=== PATIENT | male | born 1980 | race Caucasian/White ===

== ENCOUNTER 2021-10-29 18:57 | Emergency (ER) | payer MEDICARE, SELFPAY ==
[2021-10-29 19:01] VITALS: BP 113/71; PULSE 85; RESP 18; TEMP 37.1; O2SAT 100
--- NOTE | 2021-10-29 19:15 | DI.RAD_ITS ---
Exam(s) XR SHOULDER LT COMPLETE 2+V EXAM: XR SHOULDER LT COMPLETE 2+V CLINICAL HISTORY: lateral pain. TECHNIQUE: 2D digital imaging was performed. Five views. COMPARISON: No exams were available for comparison FINDINGS: BONES: No acute fracture is present. No bony destructive lesion is seen. JOINTS: No dislocation present. Minimal degenerative changes glenohumeral joint. SOFT TISSUE: Normal. IMPRESSION: No acute abnormality. DATA REPOSITORY: RADIATION DOSE DELIVERED:
--- OUTSIDE RECORDS SUMMARY | 2021-10-29 19:15 | XMS_ITS | CCD ---
:1980 Author Care Team Providers Name Role Phone KIKI Attending Physician Unavailable KIKI Er Physician 1 Unavailable Vital Signs Unknown or Not Available. Allergies Allergy Code Allergy Type Reaction Status PENICILLINS (CLASS) 01241 Drug allergy Active SULFA (sulfonamide) 0 Drug allergy Active AMOXICILLIN 723 Drug allergy Active Procedures Unknown or Not Available. History of Immunizations Unknown or Not Available. Problems Problem Code Start Date Resolved Date Status Renal stone 50222694 03/28/2019 Active Right upper quadrant pain 694304135 01/01/2016 Ac tive Disorder of gallbladder 22331458 01/01/2016 Acti ve Bipolar disorder 45920735 Active Hypothyroidism 56434640 Active Depression 80516347 Active Results Unknown or Not Available. Active Medications Medication Code Dose Units Frequency Route Modification Start Date/Time Benztropine 783894 1 MILLIGRAMS TWICE A DAY ORAL 03/29 Mesylate 1MG 13:00 Oral Tablet Prescription Detail TAKE 1 MILLIGRAMS ORAL TWICE A DAY Gabapentin 086214 600 MILLIGRAMS TWICE A ORAL 03/29/2019 300MG Oral DAY 13:00 Capsule Prescription Detail TAKE 600 MILLIGRAMS ORAL TWI CE A DAY Medications Administered During Visit Unknown or Not Available. Encounters Encounter Diagnosis Diagnosis Code Start Date Hyperventilation R064 01/31/2019 Social History Smoking Status Code Start Date End Date Never smoker 241683226 Patient Decision Aids Unknown or Not Available. Discharge Instructions You were admitted to [facility] on 01/31/2019 08:28 with a principal diagnosis of Hyperventilation You were discharged from [facility] on 01/31/2019 10:26 Should you have any questions prior to d ischarge, please contact a member of your healthcare team. If you have left the spital and have any questions, please contact your primary care physician. Chief Complaint and Reason For Visit Chief Complaint Date of Onset Panic attack 01/31/2019 Function Status Unknown or Not Available. Plan of Care Unknown or Not Available. Referral/Transition of Care Unknown or Not Available.
--- OUTSIDE RECORDS SUMMARY | 2021-10-29 19:16 | XMS_ITS | CCD ---
:1980 Author Care Team Providers Name Role Phone KIKI Attending Physician Unavailable KIKI Er Physician 1 Unavailable Vital Signs Unknown or Not Available. Allergies Allergy Code Allergy Type Reaction Status PENICILLINS (CLASS) 22202 Drug allergy Active SULFA (sulfonamide) 0 Drug allergy Active AMOXICILLIN 723 Drug allergy Active Procedures Unknown or Not Available. History of Immunizations Unknown or Not Available. Problems Problem Code Start Date Resolved Date Status Renal stone 99435718 03/28/2019 Active Right upper quadrant pain 908883780 01/01/2016 Ac tive Disorder of gallbladder 75969642 01/01/2016 Acti ve Bipolar disorder 32447090 Active Hypothyroidism 58924909 Active Depression 71209012 Active Results Active Medications Medication Code Dose Units Frequency Route Modification Start Date/Time Benztropine 968916 1 MILLIGRAMS TWICE A DAY ORAL 03/29 Mesylate 1MG 13:00 Oral Tablet Prescription Detail TAKE 1 MILLIGRAMS ORAL TWICE A DAY Gabapentin 729514 600 MILLIGRAMS TWICE A ORAL 03/29/2019 300MG Oral DAY 13:00 Capsule Prescription Detail TAKE 600 MILLIGRAMS ORAL TWI CE A DAY Medications Administered During Visit Unknown or Not Available. Encounters Encounter Diagnosis Diagnosis Code Start Date Other chronic postprocedural pain G8928 2018 Social History Smoking Status Code Start Date End Date Never smoker 597549717 Patient Decision Aids Unknown or Not Available. Discharge Instructions You were admitted to [facility] on 04/19/2019 14:52 with a principal diagnosis of Other chronic pos tprocedural pain You were discharged from [facility] on 04/19/2019 21:52 Should you have any questions prior to d ischarge, please contact a member of your healthcare team. If you have left the spital and have any questions, please contact your primary care physician. Chief Complaint and Reason For Visit Chief Complaint Date of Onset Abdominal pain 04/19/2019 Function Status Unknown or Not Available. Plan of Care Unknown or Not Available. Referral/Transition of Care Unknown or Not Available.
--- OUTSIDE RECORDS SUMMARY | 2021-10-29 19:16 | XMS_ITS | CCD ---
:1980 Author Care Team Providers Name Role Phone Mercedes RODRÍGUEZ Attending Physician Unavailable Skylar GIBBONS Er Physician 1 Unavailable Vital Signs Unknown or Not Available. Allergies Allergy Code Allergy Type Reaction Status PENICILLINS (CLASS) 14052 Drug allergy Active SULFA (sulfonamide) 0 Drug allergy Active AMOXICILLIN 723 Drug allergy Active Procedures Unknown or Not Available. History of Immunizations Unknown or Not Available. Problems Problem Code Start Date Resolved Date Status Renal stone 15243739 03/28/2019 Active Right upper quadrant pain 135000394 01/01/2016 Ac tive Disorder of gallbladder 17495084 01/01/2016 Acti ve Bipolar disorder 98715349 Active Hypothyroidism 39390543 Active Depression 80619310 Active Results Active Medications Medication Code Dose Units Frequency Route Modification Start Date/Time Benztropine 592761 1 MILLIGRAMS TWICE A DAY ORAL 03/29 Mesylate 1MG 13:00 Oral Tablet Prescription Detail TAKE 1 MILLIGRAMS ORAL TWICE A DAY Gabapentin 226776 600 MILLIGRAMS TWICE A ORAL 03/29/2019 300MG Oral DAY 13:00 Capsule Prescription Detail TAKE 600 MILLIGRAMS ORAL TWI CE A DAY Medications Administered During Visit Unknown or Not Available. Encounters Encounter Diagnosis Diagnosis Code Start Date Migraine without aura, not intractable, without B74060 09/26/2019 status migrainosus Social History Smoking Status Code Start Date End Date Never smoker 223315973 Patient Decision Aids Unknown or Not Available. Discharge Instructions [facility] 18:14 with a principal diagnosis of Migraine without aura, not intractable, without status migrainosus You were discharged from [facility] on 09/26/2019 21:15 Should you have any questions prior to d ischarge, please contact a member of your healthcare team. If you have left the ho spital and have any questions, please contact your primary care physician. Chief Complaint and Reason For Visit Chief Complaint Date of Onset HEADACHE 09/26/2019 Function Status Unknown or Not Available. Plan of Care Unknown or Not Available. Referral/Transition of Care Unknown or Not Available.
--- OUTSIDE RECORDS SUMMARY | 2021-10-29 19:16 | XMS_ITS | CCD ---
:1980 Author Care Team Providers Name Role Phone Steven KENDRICK Attending Physician Unavailable [facility] Er Physician 1 Unavailable Vital Signs Vital Sign Value Unit Date/Time Recent/Initial? BMI (Body Mass 26.29 kg/m^2 03/28/2019 10:48 Initial V S Index) Weight Measured 183.2 lbs 03/28/2019 10:48 Initial VS Height 70 in 03/28/2019 10:48 Initial VS BSA (Body Surface 2.03 m^2 03/28/2019 10:48 Initia l VS Area) BP Systolic 134 mmHg 03/28/2019 10:48 Initial VS BP Diastolic 88 mmHg 03/28/2019 10:48 Initial VS Respiratory Rate 18 bpm 03/28/2019 10:48 Initial VS Heart Rate 91 bpm 03/28/2019 10:48 Initial VS O2 % BldC Oximetry 97 % 03/28/2019 10:48 Initi al VS Body Temperature 98.2 degrees 03/28/2019 10:48 Initial VS BMI (Body Mass 26.73 kg/m^2 03/29/2019 04:00 Most Rece nt VS Index) Weight Measured 186.29 lbs 03/29/2019 04:00 Most Rec ent VS Height 70 in 03/29/2019 04:00 Most Recent VS BSA (Body Surface 2.04 m^2 03/29/2019 04:00 Most R ecent VS Area) BP Systolic 124 mmHg 03/29/2019 15:38 Most Recent VS BP Diastolic 66 mmHg 03/29/2019 15:38 Most Recent VS Respiratory Rate 18 bpm 03/29/2019 15:38 Most Re cent VS Heart Rate 77 bpm 03/29/2019 15:38 Most Recent VS O2 % BldC Oximetry 92 % 03/29/2019 15:38 Most Recent VS Body Temperature 99 degrees 03/29/2019 15:38 Most Re cent VS Allergies Allergy Code Allergy Type Reaction Status PENICILLINS (CLASS) 67380 Drug allergy Active SULFA (sulfonamide) 0 Drug allergy Active AMOXICILLIN 723 Drug allergy Active Procedures Procedure Code Procedure Type Date Extirpation of Matter from Right [id number] ICD-10 PCS 03/29/2019 Ureter, Via Natural or Artificial Opening Dilation of Right Ureter with 3S024DI ICD-10 PCS Intraluminal Device, Via Natural or Artifici Fluoroscopy of Right Kidney, Ureter [id number] ICD-10 PCS 03/29/2019 and Bladder using Other Contrast History of Immunizations Unknown or Not Available. Problems Problem Code Start Date Resolved Date Status Renal stone 29122608 03/28/2019 Active Right upper quadrant pain 789757856 01/01/2016 Ac tive Disorder of gallbladder 12394738 01/01/2016 Acti ve Bipolar disorder 61513092 Active Hypothyroidism 09798908 Active Depression 59294547 Active Results Active Medications Medications Administered During Visit Medication Dose Units Frequency Route Date/Time of Last Dose BENZTROPINE 1 MG BID PO 03/28/2019 (COGENTIN) TAB:1MG 20:57 GABAPENTIN 600 MG BID PO 03/28/2019 (NEURONTIN) 20:57 CAP:300MG ALPRAZolam (XANAX) 0.5 MG PRN Q6H PO 2018 TAB:0.5MG (CIV) 16:25 CITALOPRAM (CeleXA) 40 MG DAILY PO 03/28 TAB:40MG 12:15 ARIPIPRAZOLE 2 MG DAILY PO 03/28/2019 (ABILIFY) TAB:2MG 12:15 NS 1000ML CONT IV 03/29/2019 01:13 ONDANSETRON (ZOFRAN) 4 MG PRN Q6H IVP 03/05 VIAL:2MG/ML 2ML 04:17 morphine SYRINGE: 1 MG PRN Q1H IVP 019 2MG (CII) 12:16 HYDROmorphone(DILAUD 1 MG PRN Q4H IVP 03/05 ID) AMP:1MG/ML (CII) 04:1 6 oxyCODONE 10 MG PRN Q3H PO 03/28/2019 (ROXICODONE) TAB:5MG 16:2 4 (CII) CIPROFLOXACIN Q12H 03/28/2019 (CIPRO) PREMIX 20:56 400MG/200ML BENZTROPINE 1 MG BID PO 03/29/2019 (COGENTIN) TAB:1MG 10:25 GABAPENTIN 600 MG BID PO 03/29/2019 (NEURONTIN) 10:25 CAP:300MG CITALOPRAM (CeleXA) 40 MG DAILY PO 03/29 TAB:40MG 10:25 ARIPIPRAZOLE 2 MG DAILY PO 03/29/2019 (ABILIFY) TAB:2MG 10:25 NS 1000ML CONT IV 03/29/2019 11:03 oxyCODONE 10 MG PRN Q3H PO 03/29/2019 (ROXICODONE) TAB:5MG 10:2 4 (CII) Encounters Encounter Diagnosis Diagnosis Code Start Date Hydronephrosis with renal and ureteral calculous N132 03/28/2019 obstruction Social History Smoking Status Code Start Date End Date Never smoker 713704457 Patient Decision Aids Patient Decision Aid Ciprofloxacin (Injection) (Injectable) Oxycodone, Rapid Release (Oral) (Capsule , Liquid, Tablet) Discharge Instructions You were admitted to [facility] on 03/28/2019 07:06 with a principal diagnosis of Hydronephrosis wi th renal and ureteral calculous obstruction You had the following procedures done: Extirpation of Matter from Right Ureter, Via Natural or Artificial Opening Dilation of Right Ureter with Intraluminal Device, Via Natural or Artifici Fluoroscopy of Right Kidney, Ureter and Bladder using Other C ontrast You were discharged from [facility] on 03/29/2019 16:36 Should you have any questions prior to d ischarge, please contact a member of your healthcare team. If you have left the ho spital and have any questions, please contact your primary care physician. DIET: REGULAR DIET. ACTIVITY As tolerated. IS PATIENT ON OXYGEN WHILE IN HOSPITAL? No. PAIN SCALE: 0. FOCUSED ASSESSMENT _9/2 5 _ Last BM, Alert and oriented, Speech clear, Unlabored respirations. Vital signs within normal limits, Urine output greater than 30ml/hr. Ab domen soft/non-distended. ASSESSMENT CONTINUED IV discontinued site W/O redness or larry. FOLLOWUP APPOINTMENT Fo llow-up in physician office date/time. Patient has trasportation to appointme nt. PERSONAL RISK FACTORS OF STROKE n/a SIGNS AND SYMPTOMS OF STROKE INCLUDE Sudden numbness/weakness/paralysis, Sudden visu al changes. Sudden trouble speaking, Sudden confusion or not understanding. Sudden problem with walking or balance. Sudden severe headache that is different. RETURN TO ER FOR Uncont rolled Pain. SPECIAL INSTRUCTIONS Dr west intact/educated on care, Discharged with brady/care instructions. EDUCATION COMPLETED INCLUDING Personal risk factors of stroke/TIA, Signs and symptoms of stroke. M edications and followup appointment, Patient verbalizes understanding. Hari saini verbalizes understanding, Call 911 for any symptoms of stroke. Chief Complaint and Reason For Visit Chief Complaint Date of Onset FLANK PAIN 03/28/2019 Function Status Unknown or Not Available. Plan of Care Unknown or Not Available. Referral/Transition of Care Reason for Referral: FOLLOWUP IN OFFICE ON 04/03/19 @ 10AM Appointment Date: 04/03/2019 Reason for Referral: FOLLOW UP I N OFFICE ON 04/16/19 @ 3PM Appointment Date: 04/16/2019
--- OUTSIDE RECORDS SUMMARY | 2021-10-29 19:16 | XMS_ITS | CCD ---
:1980 Author Care Team Providers Name Role Phone KIKI Attending Physician Unavailable KIKI Er Physician 1 Unavailable Vital Signs Unknown or Not Available. Allergies Allergy Code Allergy Type Reaction Status PENICILLINS (CLASS) 81488 Drug allergy Active SULFA (sulfonamide) 0 Drug allergy Active AMOXICILLIN 723 Drug allergy Active Procedures Unknown or Not Available. History of Immunizations Unknown or Not Available. Problems Problem Code Start Date Resolved Date Status Renal stone 66799419 03/28/2019 Active Right upper quadrant pain 460785323 01/01/2016 Ac tive Disorder of gallbladder 90387632 01/01/2016 Acti ve Bipolar disorder 01655126 Active Hypothyroidism 24562157 Active Depression 10191820 Active Results Unknown or Not Available. Active Medications Medication Code Dose Units Frequency Route Modification Start Date/Time Benztropine 857780 1 MILLIGRAMS TWICE A DAY ORAL 03/29 Mesylate 1MG 13:00 Oral Tablet Prescription Detail TAKE 1 MILLIGRAMS ORAL TWICE A DAY Gabapentin 007230 600 MILLIGRAMS TWICE A ORAL 03/29/2019 300MG Oral DAY 13:00 Capsule Prescription Detail TAKE 600 MILLIGRAMS ORAL TWI CE A DAY Medications Administered During Visit Unknown or Not Available. Encounters Encounter Diagnosis Diagnosis Code Start Date Generalized anxiety disorder F411 04/26/2019 Social History Smoking Status Code Start Date End Date Never smoker 678553016 Patient Decision Aids Unknown or Not Available. Discharge Instructions You were admitted to [facility] on 04/26/2019 14:14 with a principal diagnosis of Generalized anxie ty disorder You were discharged from [facility] on 04/26/2019 16:37 Should you have any questions prior to d ischarge, please contact a member of your healthcare team. If you have left the spital and have any questions, please contact your primary care physician. Chief Complaint and Reason For Visit Chief Complaint Date of Onset Panic attack 04/26/2019 Function Status Unknown or Not Available. Plan of Care Unknown or Not Available. Referral/Transition of Care Unknown or Not Available.
--- OUTSIDE RECORDS SUMMARY | 2021-10-29 19:16 | XMS_ITS | CCD ---
:1980 Author Care Team Providers Name Role Phone MORAES Attending Physician Unavailable MORAES Er Physician 1 Unavailable Vital Signs Unknown or Not Available. Allergies Allergy Code Allergy Type Reaction Status PENICILLINS (CLASS) 91157 Drug allergy Active SULFA (sulfonamide) 0 Drug allergy Active AMOXICILLIN 723 Drug allergy Active Procedures Unknown or Not Available. History of Immunizations Unknown or Not Available. Problems Problem Code Start Date Resolved Date Status Renal stone 06978210 03/28/2019 Active Right upper quadrant pain 327120848 01/01/2016 Ac tive Disorder of gallbladder 34785791 01/01/2016 Acti ve Bipolar disorder 61384747 Active Hypothyroidism 54986488 Active Depression 30450168 Active Results Active Medications Medication Code Dose Units Frequency Route Modification Start Date/Time Benztropine 556232 1 MILLIGRAMS TWICE A DAY ORAL 03/29 Mesylate 1MG 13:00 Oral Tablet Prescription Detail TAKE 1 MILLIGRAMS ORAL TWICE A DAY Gabapentin 696574 600 MILLIGRAMS TWICE A ORAL 03/29/2019 300MG Oral DAY 13:00 Capsule Prescription Detail TAKE 600 MILLIGRAMS ORAL TWI CE A DAY Medications Administered During Visit Unknown or Not Available. Encounters Encounter Diagnosis Diagnosis Code Start Date Other acute postprocedural pain G8918 03/30/20 19 Social History Smoking Status Code Start Date End Date Never smoker 635929054 Patient Decision Aids Unknown or Not Available. Discharge Instructions [facility] were [facility] to [facility] on 03/30/2019 09:13 with a principal diagnosis of Other acute postp rocedural pain You were discharged from [facility] on 03/30/2019 11:36 Should you have any questions prior to d ischarge, please contact a member of your healthcare team. If you have left the spital and have any questions, please contact your primary care physician. Chief Complaint and Reason For Visit Chief Complaint Date of Onset PELVIC PAIN 03/30/2019 Function Status Unknown or Not Available. Plan of Care Unknown or Not Available. Referral/Transition of Care Unknown or Not Available.
--- OUTSIDE RECORDS SUMMARY | 2021-10-29 19:16 | XMS_ITS | CCD ---
:1980 Author Care Team Providers Name Role Phone DONNIE Attending Physician Unavailable DONNIE Er Physician 1 Unavailable Vital Signs Unknown or Not Available. Allergies Allergy Code Allergy Type Reaction Status PENICILLINS (CLASS) 12000 Drug allergy Active SULFA (sulfonamide) 0 Drug allergy Active AMOXICILLIN 723 Drug allergy Active Procedures Unknown or Not Available. History of Immunizations Unknown or Not Available. Problems Problem Code Start Date Resolved Date Status Renal stone 17127010 03/28/2019 Active Right upper quadrant pain 215591410 01/01/2016 Ac tive Disorder of gallbladder 77251113 01/01/2016 Acti ve Bipolar disorder 63197542 Active Hypothyroidism 57381250 Active Depression 01156188 Active Results Active Medications Medication Code Dose Units Frequency Route Modification Start Date/Time Benztropine 714688 1 MILLIGRAMS TWICE A DAY ORAL 03/29 Mesylate 1MG 13:00 Oral Tablet Prescription Detail TAKE 1 MILLIGRAMS ORAL TWICE A DAY Gabapentin 892540 600 MILLIGRAMS TWICE A ORAL 03/29/2019 300MG Oral DAY 13:00 Capsule Prescription Detail TAKE 600 MILLIGRAMS ORAL TWI CE A DAY Medications Administered During Visit Unknown or Not Available. Encounters Encounter Diagnosis Diagnosis Code Start Date Unspecified symptoms and signs involving R419 03/02/2019 cognitive functions and awareness Social History Smoking Status Code Start Date End Date Never smoker 636514567 Patient Decision Aids Unknown or Not Available. Discharge Instructions [facility] were [facility] on 03/02/2019 14:35 with a principal diagnosis of Unspecified sympt oms and signs involving cognitive functions and awareness [facility] 17:28 Should you have any questions prior to d ischarge, please contact a member of your healthcare team. If you have left the ho spital and have any questions, please contact your primary care physician. Chief Complaint and Reason For Visit Chief Complaint Date of Onset BREATHING DIFFICULTY 03/02/2019 Function Status Unknown or Not Available. Plan of Care Unknown or Not Available. Referral/Transition of Care Unknown or Not Available.
--- OUTSIDE RECORDS SUMMARY | 2021-10-29 19:17 | XMS_ITS | CCD ---
:1980 Author Care Team Providers Name Role Phone RODARTE Attending Physician Unavailable RODARTE Er Physician 1 Unavailable Vital Signs Unknown or Not Available. Allergies Allergy Code Allergy Type Reaction Status PENICILLINS (CLASS) 86635 Drug allergy Active SULFA (sulfonamide) 0 Drug allergy Active AMOXICILLIN 723 Drug allergy Active Procedures Unknown or Not Available. History of Immunizations Unknown or Not Available. Problems Problem Code Start Date Resolved Date Status Renal stone 24344152 03/28/2019 Active Right upper quadrant pain 078831083 01/01/2016 Ac tive Disorder of gallbladder 66293520 01/01/2016 Acti ve Bipolar disorder 78878590 Active Hypothyroidism 48726129 Active Depression 87608354 Active Results Unknown or Not Available. Active Medications Medication Code Dose Units Frequency Route Modification Start Date/Time Benztropine 584213 1 MILLIGRAMS TWICE A DAY ORAL 03/29 Mesylate 1MG 13:00 Oral Tablet Prescription Detail TAKE 1 MILLIGRAMS ORAL TWICE A DAY Gabapentin 987530 600 MILLIGRAMS TWICE A ORAL 03/29/2019 300MG Oral DAY 13:00 Capsule Prescription Detail TAKE 600 MILLIGRAMS ORAL TWI CE A DAY Medications Administered During Visit Unknown or Not Available. Encounters Encounter Diagnosis Diagnosis Code Start Date Anxiety disorder, unspecified F419 03/14/2020 Social History Smoking Status Code Start Date End Date Never smoker 626517462 Patient Decision Aids Unknown or Not Available. Discharge Instructions You were admitted to [facility] on 03/14/2020 09:33 with a principal diagnosis of Anxiety disorder, unspecified You were discharged from [facility] on 03/14/2020 10:22 Should you have any questions prior to d ischarge, please contact a member of your healthcare team. If you have left the spital and have any questions, please contact your primary care physician. Chief Complaint and Reason For Visit Chief Complaint Date of Onset ? 03/14/2020 Function Status Unknown or Not Available. Plan of Care Unknown or Not Available. Referral/Transition of Care Unknown or Not Available.
--- OUTSIDE RECORDS SUMMARY | 2021-10-29 19:17 | XMS_ITS | CCD ---
:1980 Author Care Team Providers Name Role Phone Mercedes RODRÍGUEZ Attending Physician Unavailable Mercedes RODRÍGUEZ Er Physician 1 Unavailable Vital Signs Unknown or Not Available. Allergies Allergy Code Allergy Type Reaction Status PENICILLINS (CLASS) 10209 Drug allergy Active SULFA (sulfonamide) 0 Drug allergy Active AMOXICILLIN 723 Drug allergy Active Procedures Unknown or Not Available. History of Immunizations Unknown or Not Available. Problems Problem Code Start Date Resolved Date Status Renal stone 49424746 03/28/2019 Active Right upper quadrant pain 588507026 01/01/2016 Ac tive Disorder of gallbladder 73028890 01/01/2016 Acti ve Bipolar disorder 47280641 Active Hypothyroidism 90173214 Active Depression 66924066 Active Results Unknown or Not Available. Active Medications Medication Code Dose Units Frequency Route Modification Start Date/Time Benztropine 768795 1 MILLIGRAMS TWICE A DAY ORAL 03/29 Mesylate 1MG 13:00 Oral Tablet Prescription Detail TAKE 1 MILLIGRAMS ORAL TWICE A DAY Gabapentin 083031 600 MILLIGRAMS TWICE A ORAL 03/29/2019 300MG Oral DAY 13:00 Capsule Prescription Detail TAKE 600 MILLIGRAMS ORAL TWI CE A DAY Medications Administered During Visit Unknown or Not Available. Encounters Encounter Diagnosis Diagnosis Code Start Date Headache R51 10/01/2019 Social History Smoking Status Code Start Date End Date Never smoker 357271361 Patient Decision Aids Unknown or Not Available. Discharge Instructions You were admitted to [facility] on 10/01/2019 18:02 with a principal diagnosis of Headache You were discharged from [facility] on 10/01/2019 19:36 Should you have any questions prior to d ischarge, please contact a member of your healthcare team. If you have left the spital and have any questions, please contact your primary care physician. Chief Complaint and Reason For Visit Chief Complaint Date of Onset WOUND RECHECK 10/01/2019 Function Status Unknown or Not Available. Plan of Care Unknown or Not Available. Referral/Transition of Care Unknown or Not Available.
--- OUTSIDE RECORDS SUMMARY | 2021-10-29 19:17 | XMS_ITS | CCD ---
:1980 Author Care Team Providers Name Role Phone Trisha OJEDA Attending Physician Unavailable Trisha OJEDA Er Physician 1 Unavailable Vital Signs Unknown or Not Available. Allergies Allergy Code Allergy Type Reaction Status PENICILLINS (CLASS) 22638 Drug allergy Active SULFA (sulfonamide) 0 Drug allergy Active AMOXICILLIN 723 Drug allergy Active Procedures Procedure Code Procedure Type Date EKG (ED) 294004512 SNOMED CT 03/13/2020 History of Immunizations Unknown or Not Available. Problems Problem Code Start Date Resolved Date Status Renal stone 94531911 03/28/2019 Active Right upper quadrant pain 242882744 01/01/2016 Ac tive Disorder of gallbladder 53312731 01/01/2016 Acti ve Bipolar disorder 17555537 Active Hypothyroidism 55879780 Active Depression 02754527 Active Results CK (CREATINE KINASE) - Collect Date/Time : 03/13/2020 14:20 Test Name Code Test Result Test Units Test Ref Range CK 591 U/L 38-174 TROPONIN I - Collect Date/Time: 03/13/20 20 14:20 Test Name Code Test Result Test Units Test Ref Range TROPONIN I <0.010 ng/mL 0.01-0.033 ER DRUG SCREEN - Collect Date/Time: 03/04 16:56 Test Name Code Test Result Test Units Test Ref Range AMPHETAMINES NEGATIVE N/A NEGATIVE BARBITURATES NEGATIVE N/A NEGATIVE BENZODIAZEPINE NEGATIVE N/A NEGATIVE COCAINE NEGATIVE N/A NEGATIVE METHADONE NEGATIVE N/A NEGATIVE OPIATES NEGATIVE N/A NEGATIVE FENTANYL NEGATIVE N/A NEGATIVE OXYCODONE NEGATIVE N/A NEGATIVE BUPRENORPHRINE NEGATIVE N/A NEGATIVE 6-AM (heroin) NEGATIVE N/A NEGATIVE TRAMADOL NEGATIVE N/A NEGATIVE TETRAHYDROCANNAB NEGATIVE N/A NEGATIVE CBC W DIFF - Collect Date/Time: 020 14:20 Test Name Code Test Result Test Units Test Ref Range WBC 8.58 10*3/uL 3.58-11.07 RBC 5.16 10*6/uL 4.27-5.49 HGB 15.4 g/dL 12.9-16.1 HCT 44.8 %{vol} 37.7-46.5 MCV 86.8 fL 79.3-94.8 MCH 29.8 pg 26.8-33.2 MCHC 34.4 g/dL 33.5-35.5 RDW 13.3 % 12.0-15.1 PLT 368 10*3/uL 165-353 MPV 9.2 fL 9.0-13.0 NE% 81.4 %/100{WBC} 43.3-71.9 LY% 10.6 %/100{WBC} 16.8-43.5 MO% 7.6 %/100{WBC} 4.6-12.4 EO% 0.0 %/100{WBC} 0.0-6.0 BA% 0.2 %/100{WBC} 0.0-1.0 NE# 7.0 10*3/uL 1.9-7.2 LY# 0.9 10*3/uL 1.1-2.7 MO# 0.7 10*3/uL 0.3-0.8 EO# 0.00 10*3/uL 0.00-0.40 BA# 0.02 10*3/uL 0.00-0.10 CULTURE IF INDICATED - Collect Date/Time : 03/13/2020 16:55 Test Name Code Test Result Test Units Test Ref Range CULTIF No N/A URINALYSIS - Collect Date/Time: 03/13/20 20 16:55 Test Name Code Test Result Test Units Test Ref Range SPECIFIC GR 1.015 1.000-1.030 PH 6.5 [pH] 4.5-8 COLOR yellow N/A CLARITY clear N/A PROTEIN 1+ N/A Negative GLUCOSE Negative N/A Negative KETONE 3+ N/A Negative BILIRUBIN Negative N/A Negative BLOOD Negative N/A Negative UROBILINOGEN Negative N/A Negative NITRITE Negative N/A Negative LEUK EST Negative N/A Negative URINE MICROSCOPIC - Collect Date/Time: 0 03/13/2020 16:55 Test Name Code Test Result Test Units Test Ref Range WBC 3-5 N/A None Seen RBC 3-5 N/A None Seen Squamous Rare N/A None Seen BACTERIA Trace N/A None Seen MUCOUS 2+ N/A None Seen COMPREHENSIVE METABOLIC PANEL - Collect Date/Time: 03/13/2020 14:20 Test Name Code Test Result Test Units Test Ref Range GLUCOSE 111 mg/dL 70-99 BUN 21 mg/dL 6-20 CREATININE 1.58 mg/dL 0.50-1.20 BUN/CR RATIO 13.29 mg/mg 6.00-20.00 SODIUM 140.0 mmol/L 135.0-145.0 POTASSIUM 3.90 mmol/L 3.60-5.00 CHLORIDE 105.0 mmol/L 101.0-111.0 CO2 19 mmol/L 21-32 ANION GAP 19.50 mmol/L 8.00-16.00 CALCIUM 10.1 mg/dL 8.4-10.2 ALBUMIN 4.7 g/dL 3.2-5.5 PROTEIN TOT 8.50 g/dL 6.40-8.30 GLOBULIN 3.80 g/dL 1.40-4.80 A/G RATIO 1 {Relative}% 1-2 ALK PHOS 67 U/L 38-126 TBIL 0.91 mg/dL 0.20-1.00 SGPT 34 U/L 6-55 SGOT 34 U/L 10-42 eGFR 49 ml/min/1.73^2 >60 CALC OSMOLALITY 294 mosm/kg 285-295 Active Medications Medication Code Dose Units Frequency Route Modification Start Date/Time Benztropine 485456 1 MILLIGRAMS TWICE A DAY ORAL 03/29 Mesylate 1MG 13:00 Oral Tablet Prescription Detail TAKE 1 MILLIGRAMS ORAL TWICE A DAY Gabapentin 966817 600 MILLIGRAMS TWICE A ORAL 03/29/2019 300MG Oral DAY 13:00 Capsule Prescription Detail TAKE 600 MILLIGRAMS ORAL TWI CE A DAY Medications Administered During Visit Unknown or Not Available. Encounters Encounter Diagnosis Diagnosis Code Start Date Anxiety disorder, unspecified F419 03/13/2020 Social History Smoking Status Code Start Date End Date Never smoker 116119599 Patient Decision Aids Unknown or Not Available. Discharge Instructions You were [facility] on 03/13/2020 13:57 with a principal diagnosis of Anxiety disorder, unspecified You had the following tests done: ER DRUG SCREEN CULTURE IF INDICATED URINALYSIS U RINE MICROSCOPIC CBC W DIFF CK (CREATINE KINASE) COMPREHEN SIVE METABOLIC PANEL TROPONIN I You were discharged from [facility] on 03/13/2020 17:42 Should you have any questions prior to d ischarge, please contact a member of your healthcare team. If you have left the ho spital and have any questions, please contact your primary care physician. Chief Complaint and Reason For Visit Chief Complaint Date of Onset Panic attack 03/13/2020 Function Status Unknown or Not Available. Plan of Care Unknown or Not Available. Referral/Transition of Care Unknown or Not Available.
--- OUTSIDE RECORDS SUMMARY | 2021-10-29 19:18 | XMS_ITS | CCD ---
:1980 Author Care Team Providers Name Role Phone INGRID, Chary Attending Physician Unavailable Chary QUINTERO Er Physician 1 Unavailable Vital Signs Unknown or Not Available. Allergies Allergy Code Allergy Type Reaction Status PENICILLINS (CLASS) 73855 Drug allergy Active SULFA (sulfonamide) 0 Drug allergy Active AMOXICILLIN 723 Drug allergy Active Procedures Unknown or Not Available. History of Immunizations Unknown or Not Available. Problems Problem Code Start Date Resolved Date Status Renal stone 67551692 03/28/2019 Active Right upper quadrant 046676466 01/01/2016 Active pain Disorder of gallbladder 35495480 01/01/2016 Acti ve Bipolar disorder 65352881 Active Hypothyroidism 40014034 Active Depression 87485535 Active Calculus of kidney 20554154 07/07/2015 01/02/2016 Resolved Results Unknown or Not Available. Active Medications Medication Code Dose Units Frequency Route Modification Start Date/Time Benztropine 516212 1 MILLIGRAMS TWICE A DAY ORAL 03/29 Mesylate 1MG 13:00 Oral Tablet Prescription Detail TAKE 1 MILLIGRAMS ORAL TWICE A DAY Gabapentin 045689 600 MILLIGRAMS TWICE A ORAL 03/29/2019 300MG Oral DAY 13:00 Capsule Prescription Detail TAKE 600 MILLIGRAMS ORAL TWI CE A DAY Medications Administered During Visit Unknown or Not Available. Encounters Encounter Diagnosis Diagnosis Code Start Date Right upper quadrant pain R1011 01/01/2016 Social History Smoking Status Code Start Date End Date Never smoker 508697302 Patient Decision Aids Unknown or Not Available. [facility]charge Instructions [facility] with a principal diagnosis of Right upper quadr ant pain You were discharged from [facility] on 01/01/2016 08:02 Should you have any questions prior to d ischarge, please contact a member of your healthcare team. If you have left the spital and have any questions, please contact your primary care physician. Chief Complaint and Reason For Visit Chief Complaint Date of Onset RUQ pain Nausea/vomiting Function Status Unknown or Not Available. Plan of Care Unknown or Not Available. Referral/Transition of Care Unknown or Not Available.
--- OUTSIDE RECORDS SUMMARY | 2021-10-29 19:18 | XMS_ITS | CCD ---
:1980 Author Care Team Providers Name Role Phone RAUDEL Adore SCHUMACHER Attending Physician Unavailable Vital Signs Unknown or Not Available. Allergies Allergy Code Allergy Type Reaction Status PENICILLINS (CLASS) 04011 Drug allergy Active SULFA (sulfonamide) 0 Drug allergy Active AMOXICILLIN 723 Drug allergy Active Procedures Unknown or Not Available. History of Immunizations Unknown or Not Available. Problems Problem Code Start Date Resolved Date Status Renal stone 85299528 03/28/2019 Active Right upper quadrant pain 607081430 01/01/2016 Ac tive Disorder of gallbladder 28420661 01/01/2016 Acti ve Bipolar disorder 77864373 Active Hypothyroidism 78901296 Active Depression 20040903 Active Results Active Medications Medication Code Dose Units Frequency Route Modification Start Date/Time Benztropine 455227 1 MILLIGRAMS TWICE A DAY ORAL 03/29 Mesylate 1MG 13:00 Oral Tablet Prescription Detail TAKE 1 MILLIGRAMS ORAL TWICE A DAY Gabapentin 799905 600 MILLIGRAMS TWICE A ORAL 03/29/2019 300MG Oral DAY 13:00 Capsule Prescription Detail TAKE 600 MILLIGRAMS ORAL TWI CE A DAY Medications Administered During Visit Unknown or Not Available. Encounters Encounter Diagnosis Diagnosis Code Start Date Encounter for general adult medical examination Z0000 08/02/2016 without abnormal findings Social History Smoking Status Code Start Date End Date Never smoker 331072408 Patient Decision Aids Unknown or Not Available. [facility]charge [facility] with a principal diagnosis of Encounter for gen eral adult medical examination without abnormal findings You were discharged from [facility] on 08/02/2016 15:30 Should you have any questions prior to d ischarge, please contact a member of your healthcare team. If you have left the spital and have any questions, please contact your primary care physician. Chief Complaint and Reason For Visit Chief Complaint Date of Onset Z00.00 Function Status Unknown or Not Available. Plan of Care Unknown or Not Available. Referral/Transition of Care Unknown or Not Available.
--- OUTSIDE RECORDS SUMMARY | 2021-10-29 19:18 | XMS_ITS | CCD ---
:1980 Author Care Team Providers Name Role Phone SHAHBAZ Attending Physician Unavailable [facility] Er Physician 1 Unavailable Vital Signs Unknown or Not Available. Allergies Allergy Code Allergy Type Reaction Status PENICILLINS (CLASS) 83640 Drug allergy Active SULFA (sulfonamide) 0 Drug allergy Active AMOXICILLIN 723 Drug allergy Active Procedures Unknown or Not Available. History of Immunizations Unknown or Not Available. Problems Problem Code Start Date Resolved Date Status Renal stone 56036949 03/28/2019 Active Right upper quadrant pain 687059941 01/01/2016 Ac tive Disorder of gallbladder 94762975 01/01/2016 Acti ve Bipolar disorder 63783799 Active Hypothyroidism 90715007 Active Depression 49426176 Active Results Unknown or Not Available. Active Medications Medication Code Dose Units Frequency Route Modification Start Date/Time Benztropine 429149 1 MILLIGRAMS TWICE A DAY ORAL 03/29 Mesylate 1MG 13:00 Oral Tablet Prescription Detail TAKE 1 MILLIGRAMS ORAL TWICE A DAY Gabapentin 879574 600 MILLIGRAMS TWICE A ORAL 03/29/2019 300MG Oral DAY 13:00 Capsule Prescription Detail TAKE 600 MILLIGRAMS ORAL TWI CE A DAY Medications Administered During Visit Unknown or Not Available. Encounters Encounter Diagnosis Diagnosis Code Start Date Muscle spasm of back W69891 07/10/2020 Social History Smoking Status Code Start Date End Date Never smoker 749567044 Patient Decision Aids Unknown or Not Available. Discharge Instructions You were admitted to [facility] on 07/10/2020 01:05 with a principal diagnosis of Muscle spasm of b ack You were discharged from [facility] on 07/10/2020 02:04 Should you have any questions prior to d ischarge, please contact a member of your healthcare team. If you have left the ho spital and have any questions, please contact your primary care physician. Chief Complaint and Reason For Visit Chief Complaint Date of Onset LOW BACK PAIN Function Status Unknown or Not Available. Plan of Care Unknown or Not Available. Referral/Transition of Care Unknown or Not Available.
--- OUTSIDE RECORDS SUMMARY | 2021-10-29 19:18 | XMS_ITS | CCD ---
:1980 Author Care Team Providers Name Role Phone ELLIS Attending Physician Unavailable Vital Signs Unknown or Not Available. Allergies Allergy Code Allergy Type Reaction Status PENICILLINS (CLASS) 68138 Drug allergy Active SULFA (sulfonamide) 0 Drug allergy Active AMOXICILLIN 723 Drug allergy Active Procedures Procedure Code Procedure Type Date Esophagogastroduodenoscopy, flexible, 01731 CPT 12/30/2015 transoral; diagnostic, including col History of Immunizations Unknown or Not Available. Problems Problem Code Start Date Resolved Date Status Renal stone 09946046 03/28/2019 Active Right upper quadrant 114561320 01/01/2016 Active pain Disorder of gallbladder 54889386 01/01/2016 Acti ve Bipolar disorder 40685276 Active Hypothyroidism 48748913 Active Depression 22284544 Active Calculus of kidney 63803470 07/07/2015 01/02/2016 Resolved Results Unknown or Not Available. Active Medications Medication Code Dose Units Frequency Route Modification Start Date/Time Benztropine 728291 1 MILLIGRAMS TWICE A DAY ORAL 03/29 Mesylate 1MG 13:00 Oral Tablet Prescription Detail TAKE 1 MILLIGRAMS ORAL TWICE A DAY Gabapentin 093379 600 MILLIGRAMS TWICE A ORAL 03/29/2019 300MG Oral DAY 13:00 Capsule Prescription Detail TAKE 600 MILLIGRAMS ORAL TWI CE A DAY Medications Administered During Visit Unknown or Not Available. Encounters Encounter Diagnosis Diagnosis Code Start Date Unspecified abdominal pain R109 12/30/2015 Social History Smoking Status Code Start Date End Date Never smoker 465880622 Patient Decision Aids Unknown or Not Available. Discharge Instructions You were admitted to [facility] on 12/30/2015 11:27 with a principal diagnosis of Unspecified abdom inal pain You had the following procedures done: Esophagogastroduodenoscopy, flexible, transoral; diagnostic, includi ng col You were discharged from [facility] on 12/30/2015 13:10 Should you have any questions prior to d ischarge, please contact a member of your healthcare team. If you have left the ho spital and have any questions, please contact your primary care physician. Chief Complaint and Reason For Visit Chief Complaint Date of Onset Abdominal pain Nausea/vomiting Ulcer Function Status Unknown or Not Available. Plan of Care Unknown or Not Available. Referral/Transition of Care Unknown or Not Available.
--- OUTSIDE RECORDS SUMMARY | 2021-10-29 19:18 | XMS_ITS | CCD ---
:1980 Author Care Team Providers Name Role Phone RITO HARRISON Attending Physician Unavailable Skylar GIBBONS Er Physician 1 Unavailable Vital Signs Unknown or Not Available. Allergies Allergy Code Allergy Type Reaction Status PENICILLINS (CLASS) 43536 Drug allergy Active SULFA (sulfonamide) 0 Drug allergy Active AMOXICILLIN 723 Drug allergy Active Procedures Unknown or Not Available. History of Immunizations Unknown or Not Available. Problems Problem Code Start Date Resolved Date Status Renal stone 98504702 03/28/2019 Active Right upper quadrant pain 438042276 01/01/2016 Ac tive Disorder of gallbladder 81603568 01/01/2016 Acti ve Bipolar disorder 86063811 Active Hypothyroidism 07463337 Active Depression 79640157 Active Results CK (CREATINE KINASE) - Collect Date/Time : 03/17/2020 06:38 Test Name Code Test Result Test Units Test Ref Range CK 462 U/L 38-174 CK (CREATINE KINASE) - Collect Date/Time : 03/15/2020 11:25 Test Name Code Test Result Test Units Test Ref Range CK 1795 U/L 38-174 TROPONIN I - Collect Date/Time: 03/15/20 11:25 Test Name Code Test Result Test Units Test Ref Range TROPONIN I <0.010 ng/mL 0.01-0.033 ACETAMINOPHEN - Collect Date/Time: 03/15 11:25 Test Name Code Test Result Test Units Test Ref Range ACETAMINOPHEN <3.70 ug/mL ALCOHOL (ETHANOL) - Collect Date/Time: 0 03/15/2020 11:25 Test Name Code Test Result Test Units Test Ref Range ETOH <10 mg/dL 0-10 ER DRUG SCREEN - Collect Date/Time: 03/04 12:01 Test Name Code Test Result Test Units Test Ref Range AMPHETAMINES NEGATIVE N/A NEGATIVE BARBITURATES NEGATIVE N/A NEGATIVE BENZODIAZEPINE POSITIVE N/A NEGATIVE COCAINE NEGATIVE N/A NEGATIVE METHADONE NEGATIVE N/A NEGATIVE OPIATES NEGATIVE N/A NEGATIVE FENTANYL NEGATIVE N/A NEGATIVE OXYCODONE NEGATIVE N/A NEGATIVE BUPRENORPHRINE NEGATIVE N/A NEGATIVE 6-AM (heroin) NEGATIVE N/A NEGATIVE TRAMADOL NEGATIVE N/A NEGATIVE TETRAHYDROCANNAB NEGATIVE N/A NEGATIVE SALICYLATE - Collect Date/Time: 03/15/20 11:25 Test Name Code Test Result Test Units Test Ref Range SALICYLATE <7.90 mg/dL 2.8-20 CBC W DIFF - Collect Date/Time: 11:25 Test Name Code Test Result Test Units Test Ref Range WBC 6.80 10*3/uL 3.58-11.07 RBC 4.78 10*6/uL 4.27-5.49 HGB 14.6 g/dL 12.9-16.1 HCT 42.0 %{vol} 37.7-46.5 MCV 87.9 fL 79.3-94.8 MCH 30.5 pg 26.8-33.2 MCHC 34.8 g/dL 33.5-35.5 RDW 13.9 % 12.0-15.1 PLT 294 10*3/uL 165-353 MPV 9.0 fL 9.0-13.0 NE% 72.2 %/100{WBC} 43.3-71.9 LY% 15.3 %/100{WBC} 16.8-43.5 MO% 10.0 %/100{WBC} 4.6-12.4 EO% 1.5 %/100{WBC} 0.0-6.0 BA% 0.9 %/100{WBC} 0.0-1.0 NE# 4.9 10*3/uL 1.9-7.2 LY# 1.0 10*3/uL 1.1-2.7 MO# 0.7 10*3/uL 0.3-0.8 EO# 0.10 10*3/uL 0.00-0.40 BA# 0.06 10*3/uL 0.00-0.10 CULTURE URINE - Collect Date/Time: 03/15 12:01 Test Name Code Test Result Test Units Test Ref Range FINAL Microbiology results N/A CULTURE IF INDICATED - Collect Date/Time : 03/15/2020 12:01 Test Name Code Test Result Test Units Test Ref Range CULTIF Yes N/A URINALYSIS - Collect Date/Time: 03/15/20 12:01 Test Name Code Test Result Test Units Test Ref Range SPECIFIC GR 1.0150 1.000-1.030 PH 7 [pH] 4.5-8 COLOR Yellow N/A CLARITY S Cloudy N/A PROTEIN 2+ N/A Negative GLUCOSE Negative N/A Negative KETONE 1+ N/A Negative BILIRUBIN Negative N/A Negative BLOOD 2+ N/A Negative UROBILINOGEN Negative N/A Negative NITRITE Positive N/A Negative LEUK EST Negative N/A Negative URINE MICROSCOPIC - Collect Date/Time: 0 03/15/2020 12:01 Test Name Code Test Result Test Units Test Ref Range WBC 0-2 N/A None Seen RBC 10-25 N/A None Seen Squamous 0-5 N/A None Seen BACTERIA 2+ N/A None Seen Amorphous phosphat 2+ N/A None Seen SARS COV2 XPERT PCR - Collect Date/Time: 03/15/2020 16:51 Test Name Code Test Result Test Units Test Ref Range SARS COV2 XPERT PCR NEGATIVE N/A NEGATIVE COMPREHENSIVE METABOLIC PANEL - Collect Date/Time: 03/15/2020 11:25 Test Name Code Test Result Test Units Test Ref Range GLUCOSE 100 mg/dL 70-99 BUN 23 mg/dL 6-20 CREATININE 1.35 mg/dL 0.50-1.20 BUN/CR RATIO 17.04 mg/mg 6.00-20.00 SODIUM 141.0 mmol/L 135.0-145.0 POTASSIUM 3.70 mmol/L 3.60-5.00 CHLORIDE 107.0 mmol/L 101.0-111.0 CO2 19 mmol/L 21-32 ANION GAP 19.10 mmol/L 8.00-16.00 CALCIUM 9.5 mg/dL 8.4-10.2 ALBUMIN 4.5 g/dL 3.2-5.5 PROTEIN TOT 8.00 g/dL 6.40-8.30 GLOBULIN 3.50 g/dL 1.40-4.80 A/G RATIO 1 {Relative}% 1-2 ALK PHOS 64 U/L 38-126 TBIL 0.99 mg/dL 0.20-1.00 SGPT 48 U/L 6-55 SGOT 68 U/L 10-42 eGFR 59 ml/min/1.73^2 >60 CALC OSMOLALITY 296 mosm/kg 285-295 Active Medications Medications Administered During Visit Medication Dose Units Frequency Route Date/Time of Last Dose BENZTROPINE 1 MG BID PO 03/17/2020 (COGENTIN) TAB:1MG 09:15 GABAPENTIN 600 MG BID PO 03/17/2020 (NEURONTIN) CAP:300MG 09: 15 PAROXETINE (PAXIL) 80 MG DAILY PO 2019 TAB:20MG 09:15 PROPRANOLOL (INDERAL) 40 MG DAILY PO TAB:40MG 09:15 VIT D(ERGOCALCIFEROL 71972 UNITS QWK PO 03/04 1.25MG)CAP:50,000UN 09:15 NITROFURANTOIN 100 MG BID PO 03/17/2020 (MACROBID) CAP:100MG 16:3 8 Encounters Encounter Diagnosis Diagnosis Code Start Date Delusional disorders F22 03/15/2020 Social History Smoking Status Code Start Date End Date Never smoker [id number] Patient Decision Aids Unknown or Not Available. Discharge Instructions You were admitted to [facility] on 03/15/2020 10:29 with a principal diagnosis of Delusional disord ers You had the following tests done: CK (CREATINE KINASE) SARS COV2 XPERT PCR CULTURE IF INDIC ATED CULTURE URINE ER DRUG SCREEN URINALYSIS URIN E MICROSCOPIC ACETAMINOPHEN ALCOHOL (ETHANOL) CBC W DIFF CK (CREATINE KINASE) COMPREHENSIVE METABOLIC PANEL S ALICYLATE TROPONIN I You were discharged from [facility] on 03/17/2020 19:05 Should you have any questions prior to d ischarge, please contact a member of your healthcare team. If you have left the ho spital and have any questions, please contact your primary care physician. Chief Complaint and Reason For Visit Chief Complaint Date of Onset ? 03/15/2020 Function Status Unknown or Not Available. Plan of Care Unknown or Not Available. Referral/Transition of Care Unknown or Not Available.
--- OUTSIDE RECORDS SUMMARY | 2021-10-29 19:18 | XMS_ITS | CCD ---
:1980 Author Care Team Providers Name Role Phone Chary BECKFORD Attending Physician Unavailable Chary BECKFORD Er Physician 1 Unavailable Vital Signs Unknown or Not Available. Allergies Allergy Code Allergy Type Reaction Status PENICILLINS (CLASS) 42747 Drug allergy Active SULFA (sulfonamide) 0 Drug allergy Active AMOXICILLIN 723 Drug allergy Active Procedures Unknown or Not Available. History of Immunizations Unknown or Not Available. Problems Problem Code Start Date Resolved Date Status Renal stone 83640880 03/28/2019 Active Right upper quadrant pain 249545270 01/01/2016 Ac tive Disorder of gallbladder 86619622 01/01/2016 Acti ve Bipolar disorder 51901034 Active Hypothyroidism 42030463 Active Depression 61202795 Active Results Unknown or Not Available. Active Medications Medication Code Dose Units Frequency Route Modification Start Date/Time Benztropine 337807 1 MILLIGRAMS TWICE A DAY ORAL 03/29 Mesylate 1MG 13:00 Oral Tablet Prescription Detail TAKE 1 MILLIGRAMS ORAL TWICE A DAY Gabapentin 470527 600 MILLIGRAMS TWICE A ORAL 03/29/2019 300MG Oral DAY 13:00 Capsule Prescription Detail TAKE 600 MILLIGRAMS ORAL TWI CE A DAY Medications Administered During Visit Unknown or Not Available. Encounters Encounter Diagnosis Diagnosis Code Start Date Open bite of left thumb without damage to nail, [id number] 04/04/2020 initial encounter Social History Smoking Status Code Start Date End Date Never smoker 236815833 Patient Decision Aids Unknown or Not Available. Discharge Instructions You were admitted [facility] on 04/04/2020 00:43 with a principal diagnosis of Open bite of left thumb without damage to nail, initial encounter [facility] 03:11 Should you have any questions prior to d ischarge, please contact a member of your healthcare team. If you have left the ho spital and have any questions, please contact your primary care physician. Chief Complaint and Reason For Visit Chief Complaint Date of Onset BIT BY MOUSE Function Status Unknown or Not Available. Plan of Care Unknown or Not Available. Referral/Transition of Care Unknown or Not Available.
--- OUTSIDE RECORDS SUMMARY | 2021-10-29 19:18 | XMS_ITS | CCD ---
:1980 Author Care Team Providers Name Role Phone BADOUR Attending Physician Unavailable BADOUR Er Physician 1 Unavailable Vital Signs Unknown or Not Available. Allergies Allergy Code Allergy Type Reaction Status PENICILLINS (CLASS) 60700 Drug allergy Active SULFA (sulfonamide) 0 Drug allergy Active AMOXICILLIN 723 Drug allergy Active Procedures Procedure Code Procedure Type Date EKG (ED) 769534716 SNOMED CT 04/01/2020 History of Immunizations Unknown or Not Available. 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 01/01/2016 Acti ve Bipolar disorder 31160254 Active Hypothyroidism 26556965 Active Depression 97626911 Active Results ALCOHOL (ETHANOL) - Collect Date/Time: 0 04/01/2020 03:35 Test Name Code Test Result Test Units Test Ref Range ETOH <10 mg/dL 0-10 ER DRUG SCREEN - Collect Date/Time: 03/05 03:15 Test Name Code Test Result Test Units [...] CBC W DIFF - Collect Date/Time: 020 03:35 Test Name Code Test Result Test Units Test Ref Range WBC 7.00 10*3/uL 3.58-11.07 RBC 4.15 10*6/uL 4.27-5.49 HGB 12.4 g/dL 12.9-16.1 HCT 38.5 %{vol} 37.7-46.5 MCV 92.8 fL 79.3-94.8 MCH 29.9 pg 26.8-33.2 MCHC 32.2 g/dL 33.5-35.5 RDW 13.6 % 12.0-15.1 PLT 267 10*3/uL 165-353 MPV 9.0 fL 9.0-13.0 NE% 62.6 %/100{WBC} 43.3-71.9 LY% 22.0 %/100{WBC} 16.8-43.5 MO% 12.0 %/100{WBC} 4.6-12.4 EO% 2.7 %/100{WBC} 0.0-6.0 BA% 0.4 %/100{WBC} 0.0-1.0 NE# 4.4 10*3/uL 1.9-7.2 LY# 1.5 10*3/uL 1.1-2.7 MO# 0.8 10*3/uL 0.3-0.8 EO# 0.19 10*3/uL 0.00-0.40 BA# 0.03 10*3/uL 0.00-0.10 CULTURE URINE - Collect Date/Time: 04/01 03:15 Test Name Code Test Result Test Units Test Ref Range FINAL Microbiology results N/A CULTURE IF INDICATED - Collect Date/Time : 04/01/2020 03:15 Test Name Code Test Result Test Units Test Ref Range CULTIF Yes N/A URINALYSIS - Collect Date/Time: 04/01/20 03:15 Test Name Code Test Result Test Units Test Ref Range SPECIFIC GR 1.015 1.000-1.030 PH 6.5 [pH] 4.5-8 COLOR yellow N/A CLARITY sl.cloudy N/A PROTEIN 2+ N/A Negative GLUCOSE Negative N/A Negative KETONE Negative N/A Negative BILIRUBIN Negative N/A Negative BLOOD 2+ N/A Negative UROBILINOGEN Negative N/A Negative NITRITE Negative N/A Negative LEUK EST 3+ N/A Negative URINE MICROSCOPIC - Collect Date/Time: 0 04/01/2020 03:15 Test Name Code Test Result Test Units Test Ref Range WBC 50-100 N/A None Seen RBC 6-10 N/A None Seen Squamous Rare N/A None Seen BACTERIA 2+ N/A None Seen Calcium oxalate 1+ N/A None Seen MUCOUS Trace N/A None Seen C. trachomatis N. gonorrhoeae, PCR - Col lect Date/Time: 04/01/2020 03:15 Test Name Code Test Result Test Units Test Ref Range C. trachomatis NOT DETECTED N/A Not Detected N. gonorrhoeae NOT DETECTED N/A Not Detected COMPREHENSIVE METABOLIC PANEL - Collect Date/Time: 04/01/2020 03:35 Test Name Code Test Result Test Units Test Ref Range GLUCOSE 93 mg/dL 70-99 BUN 18 mg/dL 6-20 CREATININE 1.62 mg/dL 0.50-1.20 BUN/CR RATIO 11.11 mg/mg 6.00-20.00 SODIUM 141.0 mmol/L 135.0-145.0 POTASSIUM 3.73 mmol/L 3.60-5.00 CHLORIDE 106.0 mmol/L 101.0-111.0 CO2 27 mmol/L 21-32 ANION GAP 11.73 mmol/L 8.00-16.00 CALCIUM 8.8 mg/dL 8.4-10.2 ALBUMIN 3.7 g/dL 3.2-5.5 PROTEIN TOT 6.75 g/dL 6.40-8.30 GLOBULIN 3.05 g/dL 1.40-4.80 A/G RATIO 1 {Relative}% 1-2 ALK PHOS 48 U/L 38-126 TBIL 0.30 mg/dL 0.20-1.00 SGPT 35 U/L 6-55 SGOT 26 U/L 10-42 eGFR 47 ml/min/1.73^2 >60 CALC OSMOLALITY 294 mosm/kg 285-295 Active Medications Unknown or Not Available. Medications Administered During Visit Unknown or Not Available. Encounters Encounter Diagnosis Diagnosis Code Start Date Toxic effect of other corrosive organic [id number] 04/01/2020 compounds, accidental (unintentional), initial encounter Social History Smoking Status Code Start Date End Date Never smoker [id number] Patient Decision Aids Unknown or Not Available. Discharge Instructions You were admitted to [facility] on 04/01/2020 02:56 with a principal diagnosis of Toxic effect of o ther corrosive organic compounds, accidental (unintention You had the following tests done: ALCOHOL (ETHANOL) CBC W DIFF COMPREHENSIVE METABOLIC PA KRISTOPHER C. trachomatis N. gonorrhoeae, PCR CULTURE IF INDICATED CULTURE URINE ER DRUG SCREEN URINALYSIS URINE MICROSCOPI C You were discharged from [facility] on 04/01/2020 12:27 Should you have any questions prior to d ischarge, please contact a member of your healthcare team. If you have left the ho spital and have any questions, please contact your primary care physician. Chief Complaint and Reason For Visit Chief Complaint Date of Onset PSYCH 04/01/2020 Function Status Unknown or Not Available. Plan of Care Unknown or Not Available. Referral/Transition of Care Unknown or Not Available.
--- OUTSIDE RECORDS SUMMARY | 2021-10-29 19:18 | XMS_ITS | CCD ---
:1980 Author Care Team Providers Name Role Phone Chavo COHN Attending Physician Unavailable Chavo COHN Er Physician 1 Unavailable Vital Signs Unknown or Not Available. Allergies Allergy Code Allergy Type Reaction Status PENICILLINS (CLASS) 07061 Drug allergy Active SULFA (sulfonamide) 0 Drug allergy Active AMOXICILLIN 723 Drug allergy Active Procedures Unknown or Not Available. History of Immunizations Unknown or Not Available. Problems Problem Code Start Date Resolved Date Status Renal stone 90887130 03/28/2019 Active Right upper quadrant pain 590198595 01/01/2016 Ac tive Disorder of gallbladder 25950812 01/01/2016 Acti ve Bipolar disorder 89334067 Active Hypothyroidism 52875767 Active Depression 38930313 Active Results Active Medications Medication Code Dose Units Frequency Route Modification Start Date/Time Benztropine 019336 1 MILLIGRAMS TWICE A DAY ORAL 03/29 Mesylate 1MG 13:00 Oral Tablet Prescription Detail TAKE 1 MILLIGRAMS ORAL TWICE A DAY Gabapentin 568518 600 MILLIGRAMS TWICE A ORAL 03/29/2019 300MG Oral DAY 13:00 Capsule Prescription Detail TAKE 600 MILLIGRAMS ORAL TWI CE A DAY Medications Administered During Visit Unknown or Not Available. Encounters Encounter Diagnosis Diagnosis Code Start Date Suicidal ideations V57459 11/08/2017 Social History Smoking Status Code Start Date End Date Never smoker 958572005 Patient Decision Aids Unknown or Not Available. Discharge Instructions [facility]2017 07:41 with a principal diagnosis of Suicidal ideation s You were discharged from [facility] on 11/09/2017 03:40 Should you have any questions prior to d ischarge, please contact a member of your healthcare team. If you have left the spital and have any questions, please contact your primary care physician. Chief Complaint and Reason For Visit Chief Complaint Date of Onset Suicidal 11/08/2017 Function Status Unknown or Not Available. Plan of Care Unknown or Not Available. Referral/Transition of Care Unknown or Not Available.
--- NOTE | 2021-10-29 19:19 | ED.GENADUL_ITS ---
Discharge Plan Disposition [facility] Condition: Stable Discharge Details Clinical Impression: Left shoulder strain, Depression Primary Care Provider: Loretta,Local ED Provider: Humberto Johnston Home Meds and New Rx's Prescriptions: New methocarbamol 500 mg tablet 1,000 mg PO TID PRN (Reason: pain) Qty: 20 0RF No Action oxcarbazepine 150 mg Tablet 150 mg PO DAILY 0RF clonazepam [Klonopin] 0.5 mg Tablet 0.5 mg PO BID PRN0RF Rx Instructions: 1/2 to 1 po as needed BID Discharge Instructions Instructions: Depression (ED), Shoulder Sprain (ED) Additional Instructions: Wear sling as needed for comfort while awake and out of bed for the next 7 to 10 days time. May remove for bathing and for sleep. Apply ice to the area 20 minutes at a time to reduce pain. Follow-up with physical therapy as prescribed. May use Tylenol and ibuprofen as you have been. You may use the prescribed Robaxin as needed for increased pain control. Medical Decision Making <Duong Castaneda MD - Last Filed: 10/30/21 16:06> This is a 41-year-old male who is staying with a friend in [place] for a couple of months. He recently was discharged from inpatient psychiatry unit in his home state [facility]. He states his anxiety depression is improving. He has noted 2 months of left shoulder pain while inpatient was told that this may be a strain for which she should seek physical therapy. He states he was discharged prior to any of these referrals being completed. On exam he has reproducible lateral deltoid tenderness and pain with abduction and extension of the arm. Differential diagnosis is include strain, tendinitis, rotator cuff pathology. Patient was referred for x-ray X-ray without bony injury or dislocation. See formal report. Will treat with sling, referral for physical therapy, and trial of Robaxin for improved muscular pain control. Patient understands plan of outpatient care of shoulder discomfort. At the time of my discussing the patient's discharge for shoulder strain, he stated that he has had some persistent suicidal thoughts and wish to speak to mental health screener this evening. Therefore, patient was signed out to Dr. Patterson pending crisis screening. <Tay Patterson MD - Last Filed: 10/29/21 22:25> This is a 41-year-old male who is staying with a friend in [place] for a couple of months. He recently was discharged from inpatient psychiatry unit in his home state of [place]. He states his anxiety depression is improving. He has noted 2 months of left shoulder pain while inpatient was told that this may be a strain for which she should seek physical therapy. He states he was discharged prior to any of these referrals being completed. On exam he has reproducible lateral deltoid tenderness and pain with abduction and extension of the arm. Differential diagnosis is include strain, tendinitis, rotator cuff pathology. Patient was referred for x-ray X-ray without bony injury or dislocation. See formal report. Will treat with sling, referral for physical therapy, and trial of Robaxin for improved muscular pain control. Patient understands plan of outpatient care of shoulder discomfort. At the time of my discussing the patient's discharge for shoulder strain, he stated that he has had some persistent suicidal thoughts and wish to speak to mental health screener this evening. Therefore, patient was signed out to Dr. Patterson pending crisis screening. patient seen by mental health and will currently be voluntary for SI. Patient calm and cooperative, endorsing si. psych labs and cpso ordered. HPI <Duong Castaneda MD - Last Filed: 10/30/21 16:06> General Mode of arrival: ambulatory . Date/Time Provider Initiated Documentation: 10/29/21 18:58 . Limitations to Documentation: no limitations . Information obtained by: patient . History of Present Illness 41 year old M presents to the emergency department with the chief complaint of Left shoulder pain for, described as moderate, Quality is described as dull, and is localized to the left and upper extremity. Patient reports no radiation. Patient started experiencing this week(s) and it has been intermittent. improves with Rest improves symptom(s), Movement worsens symptoms . Patient notes denies weakness. Patient did receive the following treatments prior to arrival, none Related Data Home Medications Medication Instructions Recorded Confirmed methocarbamol 500 mg tablet 1,000 mg PO TID PRN #20 tab 10/29/21 clonazepam 0.5 mg tablet (Klonopin) 0.5 mg PO BID PRN 10/30/21 10/30/21 oxcarbazepine 150 mg tablet 150 mg PO DAILY 10/30/21 10/30/21 Previous Rx's Medication Instructions Recorded methocarbamol 500 mg tablet 1,000 mg PO TID PRN #20 tab 10/29/21 Allergies Allergy/AdvReac Type Severity Reaction Status Date / Time amoxicillin Allergy Unverified 10/29/21 19:07 Penicillins Allergy Unverified 10/29/21 19:07 Sulfa (Sulfonamide Allergy Unverified 10/29/21 19:08 Antibiotics) General Stated Complaint: Orthopedic CHE: 4 Review of Systems <Duong Castaneda MD - Last Filed: 10/30/21 16:06> Narrative: No numbness or tingling. Denies fall or injury. He has been recovering from recent anxiety and depression and has had some nightmares with some flailing. No other injury that he is known. 8 systems reviewed and otherwise negative PFSH <Duong Castaneda MD - Last Filed: 10/30/21 16:06> All Active Problems (Updated 10/29/21 @ 20:09 by Duong Castaneda MD) Left shoulder strain (Acute) Depression (Chronic) Social History Smoking/Tobacco Use Status: Never Smoking risk assessment performed?: Yes Alcohol Intake: never Drug use: Never Substance use type: does not use Do you feel safe at home: Yes Do you feel safe in your relationship?: Yes Exam <Duong Castaneda MD - Last Filed: 10/30/21 16:06> Narrative Exam Narrative: GEN: awake, alert, oriented 3. Pleasant, well groomed, interactive. HEAD: Normocephalic, atraumatic ENT: Mucous membranes moist, oropharynx unremarkable, External ear exam unremarkable EYES: PERRL, EOMI NECK: Full ROM, no JAIMEE, no menigismus CHEST/RESP: Nontender, clear to auscultation bilateral, no wheeze/rhonchi/rales CARDIOVASCULAR: RRR, no murmur, rub freda. 2+ Rad pulse bilateral EXT: Full ROM, pain with palpation of left lateral and anterior deltoid. Pain with abduction and extension of left arm and pain with supination and empty can test. Neuro: Grossly normal neurologic exam, conversant, interactive. Psych: Speech fluent, thoughts congruent, affect normal Course <Duong Castaneda MD - Last Filed: 10/30/21 16:06> Vital Signs Vital signs: Vital Signs Temperature 37.1 C 10/29/21 19:01 Pulse 85 10/29/21 19:01 Respiratory Rate 18 10/29/21 19:01 Blood Pressure 113/71 10/29/21 19:01 Pulse Oximetry 100 10/29/21 19:01 Temperature 37.1 C 10/29/21 19:01 Temperature Source Skin 10/29/21 19:01 Pulse 85 10/29/21 19:01 Respiratory Rate 18 10/29/21 19:01 Respiratory Effort 10/29/21 19:05 Blood Pressure 113/71 10/29/21 19:01 Blood Pressure Position Sitting 10/29/21 19:01 Pulse Oximetry 100 10/29/21 19:01 Oxygen Delivery Method Room Air 10/29/21 19:01 Oxygen Flow Rate 0 10/29/21 19:01 Pain Level 10 10/29/21 19:01 Sign Out <Duong Castaneda MD - Last Filed: 10/30/21 16:06> Sign Out Data: Sign Out Comment: Recent DC from [place] inpatient. Persistent SI, requests [facility] Last updated by Duong Castaneda MD at 10/29/21 20:10 Sign Out Comment: recently moved here from [place], originally here for chronic shoulder pain and on d/c reported SI, no voluntary for SI Last updated by Tay Patterson MD at 10/30/21 00:13
--- OUTSIDE RECORDS SUMMARY | 2021-10-29 19:19 | XMS_ITS | CCD ---
:1980 Author Care Team Providers Name Role Phone FREDI VILLALOBOS Attending Physician Unavailable FREDI VILLALOBOS Er Physician 1 Unavailable Vital Signs Unknown or Not Available. Allergies Allergy Code Allergy Type Reaction Status PENICILLINS (CLASS) 72364 Drug allergy Active SULFA (sulfonamide) 0 Drug allergy Active AMOXICILLIN 723 Drug allergy Active Procedures Unknown or Not Available. History of Immunizations Unknown or Not Available. Problems Problem Code Start Date Resolved Date Status Renal stone 21743854 03/28/2019 Active Right upper quadrant pain 560578356 01/01/2016 Ac tive Disorder of gallbladder 06355023 01/01/2016 Acti ve Bipolar disorder 20102372 Active Hypothyroidism 05838912 Active Depression 11849499 Active Results SARS FLU & RSV XPERT XPRESS - Collect Da te/Time: 03/18/2021 22:20 Test Name Code Test Result Test Units Test Ref Range RSV PCR NEG N/A NEG;NEGATIVE FLU A PCR NEGATIVE N/A NEG;NEGATIVE FLU B PCR NEG N/A NEGATIVE;NEG SARS-CoV-2,PCR NEG N/A NEGATIVE;NEG Active Medications Medication Code Dose Units Frequency Route Modification Start Date/Time Benztropine 714836 1 MILLIGRAMS TWICE A DAY ORAL 03/29 Mesylate 1MG 13:00 Oral Tablet Prescription Detail TAKE 1 MILLIGRAMS ORAL TWICE A DAY Gabapentin 548892 600 MILLIGRAMS TWICE A ORAL 03/29/2019 300MG Oral DAY 13:00 Capsule Prescription Detail TAKE 600 MILLIGRAMS ORAL TWI CE A DAY Medications Administered During Visit Unknown or Not Available. Encounters Encounter Diagnosis Diagnosis Code Start Date Acute bronchitis, unspecified J209 03/18/2021 Social History Smoking Status Code Start Date End Date Never smoker 516336321 Patient Decision Aids Unknown or Not Available. Discharge Instructions You were admitted to [facility] on 03/18/2021 18:11 with a principal diagnosis of Acute bronchitis, unspecified You had the following tests done: SARS FLU & RSV XPERT XPRESS You were discharged from [facility] on 03/18/2021 23:03 Should you have any questions prior to d ischarge, please contact a member of your healthcare team. If you have left the ho spital and have any questions, please contact your primary care physician. Chief Complaint and Reason For Visit Chief Complaint Date of Onset POSS COVID 03/18/2021 Function Status Unknown or Not Available. Plan of Care Unknown or Not Available. Referral/Transition of Care Unknown or Not Available.
--- NOTE | 2021-10-29 20:06 | DI.VRAD_ITS ---
PROCEDURE INFORMATION: Exam: XR Left Shoulder Exam date and time: 10/29/2021 7:34 PM Age: 41 years old Clinical indication: Pain; Shoulder; Left; Additional info: Left shoulder pain TECHNIQUE: Imaging protocol: XR Left shoulder. Views: 2 or more views. COMPARISON: No relevant prior studies available. FINDINGS: Bones/joints: No suspicious osseous lytic or blastic lesion. No acute fracture or dislocation. Acromioclavicular and coracoclavicular intervals within normal limits. Soft tissues: No focal abnormality. IMPRESSION: No acute fracture or dislocation. Dictated and Authenticated by: August Mcknight MD. Ordering:SERGE Watters MD
--- NOTE | 2021-10-29 22:34 | PDOC.MHCN ---
Date of service: 10/29/21 Time of Service: 21:15 Mental Health Crisis Note Presenting Issue How did you arrive at the ED and why did you come: Client arrived at ED for shoulder injury. At time of discharge, client reported SI. Precipitating Factors Client is endorsing SI with an intent of 9/10 and a plan to overdose. Disposition BEHAVIOR: Calm, cooperative, engaged. Client became tearful. EYE CONTACT: Client made good eye contact. MOOD: Client describes his mood as sad. AFFECT: Congruent with mood. APPETITE: Little to no appetite. SLEEP(trouble falling/staying asleep: Difficulty sleeping. Plan Client is endorsing SI with intent of 9/10 and a plan to overdose. Client is unable to be safety planned at this time. Client is seeking in-pateint treatment. Client will be reassessed by [facility] in the AM. Signature Clinician's Name/Title: BRANDON Woo
[2021-10-29 22:52] LABS: Bilirubin Negative (Negative); Blood Small (Negative); Clarity Sl Cloudy (Clear); Glucose Negative (Negative); Ketones Negative (Negative); Leukocyte Esterase Negative (Negative); Nitrite Negative (Negative); Specific Gravity >= 1.030 (1.005-1.025); Urobilinogen 0.2 EU/dL (Up TO 0.2); pH 6.5 (5-8)
[2021-10-29] MEDS: Methocarbamol 500 MG TAB (22:55)
[2021-10-29 22:58] LABS: Abs Immature Grans 0.02 10^3/uL (0.0-0.06); Absolute Basophil Count 0.05 10^3/uL (0.0-0.2); Absolute Eosinophil Count 0.12 10^3/uL (0.0-0.7); Absolute Lymphocyte Count 1.94 10^3/uL (1.2-3.4); Absolute Monocyte Count 0.78 10^3/uL (0.1-0.8); Absolute Neutrophil Count 7.29 10^3/uL (1.2-6.7); Basophils % 0.5; Eosinophils % 1.2; HCT 47.3 % (40.0-50.0); Immature Grans % 0.2; MCH 30.2 pg (27.0-33.0); MCHC 33.8 % (32.0-36.0); MCV 89 fL (80-95); MPV 9.4 fL (8.0-11.0); Monocytes % 7.6; Neutrophils % 71.5; Platelet Count 311 10^3/uL (130-400); RBC 5.29 10^6/uL (4.36-5.78); RDW 12.5 % (11.8-14.1); RDW-SD 41.1 fL
[2021-10-29 23:00] LABS: Bacteria Negative HPF (Negative); Crystals Few Calcium Oxalate HPF (Negative); Epithelial Cells Negative HPF (Negative); Mucus Negative (Negative); WBC 0-2 HPF (0-5)
--- NOTE | 2021-10-29 23:00 | NUR.NOTE ---
Zeferino amaral; cell:[phone]
[2021-10-29 23:01] LABS: C & S Indicated? No
[2021-10-29 23:12] LABS: *AMPHETAMINES SCREEN URINE Negative (Negative); *BARBITURATES SCREEN URINE Negative (Negative); *BENZODIAZEPINES SCREEN URINE Negative (Negative); Cannabinoids THC Negative (Negative); Cocaine Screen,Urine Negative (Negative); METHADONE URINE SCREEN Negative (Negative); OPIATES URINE SCREEN Negative (Negative)
[2021-10-29 23:18] LABS: Tricyclic Antidepressants Negative (Negative)
[2021-10-29 23:19] LABS: Source Nasal/Nares
[2021-10-29 23:24] LABS: ALT 34 U/L (16-63); AST 10 U/L (15-37); Alkaline Phosphatase 93 U/L (46-116); Anion Gap 9.4 mmol/L (3-11); BUN 23 mg/dL (7-18); Bilirubin, Total 0.3 mg/dL (0.2-1.0); CO2 26.6 mmol/L (21.0-32.0); CREATININE 1.2 mg/dL (0.70-1.30); Calcium 9.1 mg/dL (8.5-10.1); Chloride 106 mmol/L (98-107); Glucose 87 mg/dL (74-106); Potassium 3.8 mmol/L (3.5-5.1); Sodium 142 mmol/L (136-145); TSH (W/Ref FT4) 2.25 uIU/mL (0.36-3.74); Total Protein 7.9 g/dL (6.4-8.2)
[2021-10-29 23:35] LABS: Salicylate < 2.8 mg/dL (<2.8)
[2021-10-29 23:41] LABS: Acetaminophen < 2 ug/mL (10-30)
[2021-10-29 23:48] LABS: ETHANOL BLOOD < 3.0 mg/dL (<10)
[2021-10-30 00:01] LABS: COVID-19 PCR Negative (Negative)
--- NOTE | 2021-10-30 06:15 | NUR.NOTE ---
Nursing Note: Breakfast safety tray ordered for patient.
--- NOTE | 2021-10-30 08:48 | CMSP_ITS ---
- If Service Date Differs Date of service: 10/30/21 Time of Service: 08:48 Care Management Safety Plan Status: Voluntary - Reason for Wait Reason for Wait: Inpatient Admission CHIEF COMPLAINT: August initially presents in the ED for left shoulder pain but as he is being discharged, he shares he is suicidal and requests to meet with a mental health rolled materials worker. VOLUNTARY FOR INPATIENT PSYCHIATRIC STABILIZATION. Patient is appropriate in all interactions since arriving at [facility]; Pt has demonstrated appropriate coping and communication skills, has articulated his or her needs and concerns and is fully engaged during staff interactions. A huddle is done at approximately 11:20 am with Berkley, Nursing Brass Cutter, SARTHAK Bianchi, and YOLANDA Benitez, in attendance. Safety plan has been established with patient, and care team, to adhere to patient goals, identify restrictions based on behavioral status, address nutrition, and determine allowed personal belongings, tools for hygiene and personal care. Determine level of activity including ambulation, level of supervision, visitors, and determine privileges based on behaviors and level of engagement by pt. SAFETY PLAN: 1. Will remain on suicide precautions. In Paper Clothes 2. Will remain in room under direct supervision of one-on-one staff at all times provided by [employer]PS[employer], ROSARIO, ELECTRICAL APPRENTICE legger press operator. 3. May have paper cups, plates, finger foods as well as a cardboard spoon with w devaughnh to eat meals. 4. Follow [facility] Management of the Admitted Behavioral Health Patient policy. 5. Comfort bath system only, shower permitted with escort at RN discretion. 6. No personal belongings. 7. Visitors: Per [facility] visitor policy and at RN discretion. 8. Activities: soft cart items, music tablet, television, and other activities at RN discretion. 9. Bathroom privileges with escort in the ED, available in room without limitation on M/S. 10. Phone: may use [employer] phone at RN discretion. 11. Due to VOLUNTARY status, if patient wishes to leave [facility], staff will contact [facility] Crisis Screener ([phone]) and On-Call Bar Welder ([phone]) as soon as possible. In the event of elopement, notify [facility] Police ([phone]). Patient is currently voluntarily at [facility] and seeking inpatient admission when a bed becomes available. [facility] Frontline Strand And Binder Controller will continue seeking placement. Please contact the Hone Operator Bar Welder ([phone]) and [facility] Strand And Binder Controller ([phone]) for any needed changes in the Safety Plan. Safety plan has been provided to interdepartmental care team.
--- NOTE | 2021-10-30 08:48 | PDOC.CMSAFED ---
- If Service Date Differs Date of service: 10/30/21 Time of Service: 08:48 Care Management Safety Plan Status: Voluntary - Reason for Wait Reason for Wait: Inpatient Admission CHIEF COMPLAINT: August initially presents in the ED for left shoulder pain but as he is being discharged, he shares he is suicidal and requests to meet with a mental health particleboard factory worker. VOLUNTARY FOR INPATIENT PSYCHIATRIC STABILIZATION. Patient is appropriate in all interactions since arriving at [facility]; Pt has demonstrated appropriate coping and communication skills, has articulated his or her needs and concerns and is fully engaged during staff interactions. A huddle is done at approximately 11:20 am with Berkley, Nursing Parachute/Combatant Diver Officer, SARTHAK Bianchi, and YOLANDA Benitez, in attendance. Safety plan has been established with patient, and care team, to adhere to patient goals, identify restrictions based on behavioral status, address nutrition, and determine allowed personal belongings, tools for hygiene and personal care. Determine level of activity including ambulation, level of supervision, visitors, and determine privileges based on behaviors and level of engagement by pt. SAFETY PLAN: 1. Will remain on suicide precautions. In Paper Clothes 2. Will remain in room under direct supervision of one-on-one staff at all times provided by CPSO, ROSARIO, IMITATION MARBLE MECHANIC administrative operations coordinator. 3. May have paper cups, plates, finger foods as well as a cardboard spoon with which to eat meals. 4. Follow [facility] Management of the Admitted Behavioral Health Patient policy. 5. Comfort bath system only, shower permitted with escort at RN discretion. 6. No personal belongings. 7. Visitors: Per [facility] visitor policy and at RN discretion. 8. Activities: soft cart items, music tablet, television, and other activities at RN discretion. 9. Bathroom privileges with escort in the ED, available in room without limitation on M/S. 10. Phone: may use [employer] hospital phone at RN discretion. 11. Due to VOLUNTARY status, if patient wishes to leave [facility], staff will contact [facility] Crisis Screener ([phone]) and On-Call Occupational Health Nurse ([phone]) as soon as possible. In the event of elopement, notify [facility] Police ([phone]). Patient is currently voluntarily at [facility] and seeking inpatient admission when a bed becomes available. [facility] Frontline Fluoroscope Operator will continue seeking placement. Please contact the Client Support Analyst Occupational Health Nurse ([phone]) and [facility] Fluoroscope Operator ([phone]) for any needed changes in the Safety Plan. Safety plan has been provided to interdepartmental care team.
--- NOTE | 2021-10-30 10:09 | PDOC.MHCN ---
Date of service: 10/30/21 Time of Service: 09:45 Mental Health Crisis Note Presenting Issue How did you arrive at the ED and why did you come: Client arrived at ED for SI Precipitating Factors Client endorsing high anxiety, depression. Disposition BEHAVIOR: withdrawn, sad EYE CONTACT: poop MOOD: depressed AFFECT: flat APPETITE: Client states his appetite is poor SLEEP(trouble falling/staying asleep: Client states he's been unable to sleep Plan Client will remain at [facility] and await for voluntary inpatient treatment [place]errasls being [place], [place] [facility] Signature Clinician's Name/Title: Tammy Nino [facility] Enhanced Crisis Corporate Communications Intern
[2021-10-30 10:55] VITALS: BP 114/53; PULSE 60; RESP 17; TEMP 36.7; O2SAT 100
[2021-10-30] MEDS: LORazepam 1 MG TAB PO (11:14)
[2021-10-30] MEDS: Acetaminophen 325 MG TAB 650 MG PO (11:14)
--- NOTE | 2021-10-30 11:18 | CMPROGNOTE_ITS ---
- If Service Date Differs Date of service: 10/30/21 Time of Service: 11:18 Care Management Progress Note S/O: August is laying in bed when CM meets with him today. He is fidgety, looks uncomfortable, and says he has high anxiety and feels like he's crawling out of his skin. August who is originally from [place] reportedly came to [facility] a couple of weeks ago to visit a friend. He tells he needed to get away from things that were going on at home for a while but he does not elaborate and CM chooses not to press him on the issue at this time. August was recently psychiatrically hospitalized in [place] for suicidal ideation and anxiety. He denies substance use. A: August is a 41-year-old male admitted to [facility] on 10/29/2021 for SI and anxiety. P: August met with Tammy [facility] Crisis Screener, via zoom, and was found to meet criteria for a voluntary psychiatric hospitalization. Referrals are faxed to [facility], [facility], and [facility] for review. Mid-afternoon, August is accepted by [facility] for psychiatric stabilization. [facility] provides transportation to [place]. - Status Status: Voluntary - Reason for Wait Reason for Wait: Inpatient Admission (Referrals faxed to [facility], [facility], and [facility]
--- NOTE | 2021-10-30 14:01 | ED.PROG_ITS ---
Date of service: 10/30/21 Time of Service: 14:01 Medical Decision Making Patient was having some anxiety was given Ativan p.o., currently resting comfortably. Has been accepted at [facility] by Dr. Sierra. [facility] Sign Out Sign Out Data: Sign Out Comment: Recent DC from [place] inpatient. Persistent SI, requests [facility] Last updated by Duong Castaneda MD at 10/29/21 20:10 Sign Out Comment: recently moved here from [place], originally here for chronic shoulder pain and on d/c reported SI, no voluntary for SI Last updated by Tay Patterson MD at 10/30/21 00:13 Discharge Plan Disposition Patient Disposition: [facility] Condition: Stable Discharge Details Clinical Impression: Left shoulder strain, Depression Primary Care Provider: Loretta,Local ED Provider: Humberto Johnston Home Meds and New Rx's Prescriptions: New methocarbamol 500 mg tablet 1,000 mg PO TID PRN (Reason: pain) Qty: 20 0RF No Action oxcarbazepine 150 mg Tablet 150 mg PO DAILY 0RF clonazepam [Klonopin] 0.5 mg Tablet 0.5 mg PO BID PRN0RF Rx Instructions: 1/2 to 1 po as needed BID Discharge Instructions Instructions: Depression (ED), Shoulder Sprain (ED) Additional Instructions: Wear sling as needed for comfort while awake and out of bed for the next 7 to 10 days time. May remove for bathing and for sleep. Apply ice to the area 20 minutes at a time to reduce pain. Follow-up with physical therapy as prescribed. May use Tylenol and ibuprofen as you have been. You may use the prescribed Robaxin as needed for increased pain control. Stand Alone Forms: Physical Therapy Referral
== END 2021-10-30 16:04 | disposition short-term general hospital (02) ==
PROVIDERS: Emergency Medicine; Emergency Provider Emergency Medicine
DX: S46.812A Strain of other muscles, fascia and tendons at shoulder and upper arm level, left arm, initial encounter (principal); X58.XXXA Exposure to other specified factors, initial encounter; F32.A Depression, unspecified; R45.851 Suicidal ideations; F41.9 Anxiety disorder, unspecified
CPT/HCPCS: 36415; 80053; 80307; 87635; 99285; 73030; 80320; 80329; 81003; 81015; 84443; 85025

== ENCOUNTER 2021-11-10 16:07 | Emergency (ER) | payer MEDICARE, SELFPAY ==
[2021-11-10 16:12] VITALS: BP 101/65; PULSE 95; RESP 16; TEMP 36.5; O2SAT 97
--- NOTE | 2021-11-10 16:22 | ED.GENADUL_ITS ---
Discharge Plan Disposition Patient Disposition: HOME Condition: Improving Discharge Details Clinical Impression: Left shoulder strain, Arthritis of left shoulder region Primary Care Provider: Loretta,Local ED Provider: Duong Castaneda Home Meds and New Rx's Prescriptions: New prednisone 50 mg tablet 50 mg PO DAILY 5 Days Qty: 5 0RF Continued lorazepam [Ativan] 0.5 mg Tablet 0.5 mg PO .[id number] PRN0RF lorazepam [Ativan] 1 mg Tablet 1 mg PO .QAM 0RF sertraline [Zoloft] 50 mg Tablet 50 mg PO DAILY 0RF gabapentin 400 mg Tablet 400 mg PO TID 0RF Discharge Instructions Instructions: Shoulder Pain (ED), Shoulder Sprain (ED) Additional Instructions: Your previous x-ray did have some evidence of degenerative joint disease and may represent early arthritic changes. Wear sling as needed for comfort 3 to 10 days time. Please perform gentle daily range of motion exercises to prevent a frozen shoulder. Take prednisone as prescribed. You have been referred to outpatient therapy. We will also refer you to establish primary care in this area. Continue your routine medications. Apply ice to area every evening for 20 minutes to reduce discomfort. Stand Alone Forms: Physical Therapy Referral Medical Decision Making 41-year-old male known to me from visit on October 29 when he first arrived in [place] from his home in [place]. At that time patient had had weeks of left shoulder pain and also mood disruption that he was feeling depressed. He was transferred to [facility] where he stayed until this past Tuesday. His mood is improved but has had ongoing left shoulder pain and on discharge from [facility] was told he may need steroids either injected or by mouth. Patient does have reproducible left lateral shoulder pain on palpation. He previously had x-ray on October 29 which showed no acute fracture. No dislocation was seen either. There was question of degenerative disease. Will treat patient with sling, burst of steroids, referral to physical therapy. He is stable and improved at this time. HPI General Mode of arrival: ambulatory . Date/Time Provider Initiated Documentation: 11/10/21 16:07 . Limitations to Documentation: no limitations . Information obtained by: patient . History of Present Illness 41 year old M presents to the emergency department with the chief complaint of Left shoulder pain, described as moderate, Quality is described as dull and constant, and is localized to the left and upper extremity. Patient reports no radiation. Patient started experiencing this week(s) and it has been intermittent. improves with No relieving factors improve symptom(s), Movement worsens symptoms . Patient notes no other symptoms.; denies weakness. Patient did receive the following treatments prior to arrival, none Related Data Home Medications Medication Instructions Recorded Confirmed gabapentin 400 mg tablet 400 mg PO TID 11/10/21 11/10/21 lorazepam 0.5 mg tablet (Ativan) 0.5 mg PO .[id number] PRN 11/10/21 11/10/21 lorazepam 1 mg tablet (Ativan) 1 mg PO .QAM 11/10/21 11/10/21 prednisone 50 mg tablet 50 mg PO DAILY 5 Days #5 tab 11/10/21 sertraline 50 mg tablet (Zoloft) 50 mg PO DAILY 11/10/21 11/10/21 Previous Rx's Medication Instructions Recorded prednisone 50 mg tablet 50 mg PO DAILY 5 Days #5 tab 11/10/21 Allergies Allergy/AdvReac Type Severity Reaction Status Date / Time amoxicillin Allergy Unverified 11/10/21 16:16 Penicillins Allergy Unverified 11/10/21 16:16 Sulfa (Sulfonamide Allergy Unverified 11/10/21 16:16 Antibiotics) General Stated Complaint: Orthopedic CHE: 4 Review of Systems Narrative: 2 months of left shoulder pain, no known injury. Recently released from [facility] All Active Problems (Updated 11/10/21 @ 16:25 by Duong Castaneda MD) Left shoulder strain (Acute) Depression (Chronic) Arthritis of left shoulder region (Acute) Social History Smoking/Tobacco Use Status: Never Smoking risk assessment performed?: Yes Alcohol Intake: never Drug use: Never Substance use type: does not use Do you feel safe at home: Yes Do you feel safe in your relationship?: Yes Exam Narrative Exam Narrative: GEN: awake, alert, oriented 3. Pleasant, well groomed, interactive. HEAD: Normocephalic, atraumatic ENT: Mucous membranes moist, oropharynx unremarkable, External ear exam unremarkable EYES: PERRL, EOMI NECK: Full ROM, no JAIMEE, no menigismus CHEST/RESP: No respiratory distress EXT: Full ROM, limited somewhat by pain left upper arm. Left lateral deltoid tender to palpation. No laxity. Motor is 5 out of 5. Sensation intact throughout. 2+ radial pulse bilaterally Neuro: Grossly normal neurologic exam, conversant, interactive. Psych: Speech fluent, thoughts congruent, affect normal Course Vital Signs Vital signs: Vital Signs Temperature 36.5 C 11/10/21 16:12 Pulse 95 H 11/10/21 16:12 Respiratory Rate 16 11/10/21 16:12 Blood Pressure 101/65 11/10/21 16:12 Pulse Oximetry 97 11/10/21 16:12 Temperature 36.5 C 11/10/21 16:12 Temperature Source Temporal Artery Scan 11/10/21 16:12 Pulse 95 H 11/10/21 16:12 Respiratory Rate 16 11/10/21 16:12 Respiratory Effort 11/10/21 16:12 Blood Pressure 101/65 11/10/21 16:12 Blood Pressure Position Sitting 11/10/21 16:12 Pulse Oximetry 97 11/10/21 16:12 Oxygen Delivery Method Room Air 11/10/21 16:12 Oxygen Flow Rate 0 11/10/21 16:12 Pain Level 8 11/10/21 16:12
[2021-11-10] MEDS: Ketorolac 30 MG/ML VIAL IM (16:30)
[2021-11-10] MEDS: predniSONE 20 MG TAB 60 MG PO (16:30)
--- NOTE | 2021-11-10 16:34 | NUR.NOTE ---
Referrral given to Care Management to establish care, routine follow up, needs a PCP. Dipika Robledo
== END 2021-11-10 16:36 | disposition home or self-care (01) ==
PROVIDERS: Emergency Provider Emergency Medicine
DX: S46.812A Strain of other muscles, fascia and tendons at shoulder and upper arm level, left arm, initial encounter (principal); X58.XXXA Exposure to other specified factors, initial encounter; M19.012 Primary osteoarthritis, left shoulder
CPT/HCPCS: 96372; 99284; 99283; J1885; J7512

== ENCOUNTER 2021-12-13 23:07 | Emergency (ER) | payer MEDICARE, SELFPAY ==
[2021-12-13 23:14] VITALS: BP 121/76; PULSE 127; RESP 18; TEMP 36.9; O2SAT 97
--- NOTE | 2021-12-13 23:24 | ED.GENADUL_ITS ---
Discharge Plan Disposition Patient Disposition: STILL A PATIENT Condition: Stable Discharge Details Clinical Impression: Depression, Anxiety Primary Care Provider: Loretta,Local ED Provider: Jeremy Arzate and New Rx's Prescriptions: No Action lorazepam [Ativan] 0.5 mg Tablet 0.5 mg PO .[id number] PRN lorazepam [Ativan] 1 mg Tablet 1 mg PO .QAM sertraline [Zoloft] 50 mg Tablet 50 mg PO DAILY gabapentin 400 mg Tablet 400 mg PO TID aripiprazole [Abilify] 10 mg Tablet 10 mg PO DAILY Medical Decision Making Patient presenting for mental health evaluation. EKG and screening labs sent. No prolonged QT or other change on EKG and unremarkable laboratory studies. Patient evaluated by mental health. He will remain here on a voluntary inpatient admission with bed search in progress. Gabapentin and Ativan ordered per outpatient prescriptions. Lab Data Lab results reviewed: Yes I reviewed the patient's lab results. ECG Data Attestation: I personally reviewed and interpreted this ECG (s) as follows: Prior ECG tracings: not available for review Interpretation: See EKG HPI General Mode of arrival: ambulatory . Date/Time Provider Initiated Documentation: 12/13/21 23:24 . Limitations to Documentation: no limitations . Information obtained by: patient and RN notes reviewed . HPI Narrative: Patient presents to ED for mental health evaluation. Patient had recent admission to [place] and had been doing fine discharge until medications needed to be adjusted. He is now off his sertraline and is on Abilify. Now having increased anxiety, SI and at times HI. Has not acted on any of these feelings. However is getting worse and more pervasive. He denies any physical complaints of. Related Data Home Medications Medication Instructions Recorded Confirmed gabapentin 400 mg tablet 400 mg PO TID 11/10/21 12/13/21 lorazepam 0.5 mg tablet (Ativan) 0.5 mg PO .[id number] PRN 11/10/21 12/13/21 lorazepam 1 mg tablet (Ativan) 1 mg PO .QAM 11/10/21 12/13/21 sertraline 50 mg tablet (Zoloft) 50 mg PO DAILY 11/10/21 11/10/21 aripiprazole 10 mg tablet (Abilify) 10 mg PO DAILY 12/13/21 12/13/21 Allergies Allergy/AdvReac Type Severity Reaction Status Date / Time amoxicillin Allergy Unverified 12/13/21 23:18 Penicillins Allergy Unverified 12/13/21 23:18 Sulfa (Sulfonamide Allergy Unverified 12/13/21 23:18 Antibiotics) General Stated Complaint: PsychEval CHE: 2 Review of Systems Narrative: 04/16 Review of Systems completed and is negative except as stated above in HPI (Systems reviewed: Const, ENT, Resp, CV, GI, , MSK, Skin, Neuro, Psych) PFSH All Active Problems (Updated 12/14/21 @ 08:16 by Jeremy Arzate MD) Depression (Chronic) Anxiety (Chronic) Medical History Anxiety Depression Social History Smoking/Tobacco Use Status: Never Smoking risk assessment performed?: Yes Alcohol Intake: never Drug use: Never Substance use type: does not use Do you feel safe at home: No (SI/HI) Do you feel safe in your relationship?: Yes Additional Social history: Feels safe with friends but does not feel safe with self. Exam Narrative Exam Narrative: Const: WDWN in NAD. HEENT: NC/AT. Normal facial exam. Eyes: Normal conjunctiva and sclera. Neck: Supple. Trachea midline. Lungs: Normal respiratory effort. Lungs are clear. Cor: RRR without murmur/gallop. Good radial pulses. GI: Soft. NT/ND. No guarding or rebound. Back: No CVAT Neuro: A+O x 3. Normal speech, mentation, gait. Cranial nerves II - XII grossly intact. No gross motor or sensory deficit. Ext: No C/C/E. Skin: Warm and dry without rash. Psych: Very anxious and expressing pervasive SI. Course Vital Signs Vital signs: Vital Signs Temperature 98.4 F 12/13/21 23:14 Pulse 127 H 12/13/21 23:14 Respiratory Rate 18 12/13/21 23:14 Blood Pressure 121/76 12/13/21 23:14 Pulse Oximetry 97 12/13/21 23:14 Temperature 98.4 F 12/13/21 23:14 Temperature Source Oral 12/13/21 23:14 Pulse 127 H 12/13/21 23:14 Respiratory Rate 18 12/13/21 23:14 Blood Pressure 121/76 12/13/21 23:14 Blood Pressure Position Sitting 12/13/21 23:14 Pulse Oximetry 97 12/13/21 23:14 Oxygen Delivery Method Room Air 12/13/21 23:14 Oxygen Flow Rate 0 12/13/21 23:14 Pain Level 8 12/13/21 23:14
--- NOTE | 2021-12-13 23:45 | RT.EKG_ITS ---
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
[2021-12-14 00:19] LABS: Abs Immature Grans 0.05 10^3/uL (0.0-0.06); Absolute Basophil Count 0.07 10^3/uL (0.0-0.2); Absolute Eosinophil Count 0.17 10^3/uL (0.0-0.7); Absolute Lymphocyte Count 1.56 10^3/uL (1.2-3.4); Absolute Monocyte Count 0.67 10^3/uL (0.1-0.8); Absolute Neutrophil Count 5.59 10^3/uL (1.2-6.7); Basophils % 0.9; Eosinophils % 2.1; HCT 47.6 % (40.0-50.0); Immature Grans % 0.6; Lymphocytes % 19.2; MCHC 33.6 % (32.0-36.0); MCV 89 fL (80-95); MPV 9.4 fL (8.0-11.0); Monocytes % 8.3; Neutrophils % 68.9; Platelet Count 291 10^3/uL (130-400); RBC 5.33 10^6/uL (4.36-5.78); RDW 13.3 % (11.8-14.1); RDW-SD 43.5 fL; WBC 8.11 10^3/uL (4.4-10.8)
[2021-12-14 00:38] LABS: ALT 49 U/L (16-63); AST 19 U/L (15-37); Alkaline Phosphatase 97 U/L (46-116); Anion Gap 6.9 mmol/L (3-11); BUN 20 mg/dL (7-18); Bilirubin, Total 0.3 mg/dL (0.2-1.0); CO2 31.1 mmol/L (21.0-32.0); CREATININE 1.5 mg/dL (0.70-1.30); Calcium 9.3 mg/dL (8.5-10.1); Chloride 104 mmol/L (98-107); Estimated GFR 51.57 (mL/min/1.73m2); Glucose 113 mg/dL (74-106); Potassium 4.5 mmol/L (3.5-5.1); Sodium 142 mmol/L (136-145); TSH (W/Ref FT4) 1.88 uIU/mL (0.36-3.74); Total Protein 7.7 g/dL (6.4-8.2)
[2021-12-14 00:42] LABS: Salicylate < 2.8 mg/dL (<2.8)
[2021-12-14 00:43] LABS: Acetaminophen < 2 ug/mL (10-30); ETHANOL BLOOD < 3.0 mg/dL (<10)
[2021-12-14 01:25] LABS: Bilirubin Negative (Negative); Blood Negative (Negative); Clarity Clear (Clear); Glucose Negative (Negative); Ketones Negative (Negative); Leukocyte Esterase Negative (Negative); Nitrite Negative (Negative); Specific Gravity 1.025 (1.005-1.025); Urobilinogen 0.2 EU/dL (Up TO 0.2)
[2021-12-14 01:42] LABS: *AMPHETAMINES SCREEN URINE Negative (Negative); *BARBITURATES SCREEN URINE Negative (Negative); *BENZODIAZEPINES SCREEN URINE Negative (Negative); Cannabinoids THC Positive (Negative); Cocaine Screen,Urine Negative (Negative); METHADONE URINE SCREEN Negative (Negative); OPIATES URINE SCREEN Negative (Negative)
[2021-12-14 01:43] LABS: Tricyclic Antidepressants Negative (Negative)
--- NOTE | 2021-12-14 02:00 | PDOC.MHCN_ITS ---
Date of service: 12/14/21 Time of Service: 02:00 Mental Health Crisis Note Presenting Issue How did you arrive at the ED and why did you come: Client arrived via himself seeking voluntary placement for SI and wanting to harm others. Precipitating Factors Client endorsed SI with plan and intent. He wants to overdose on his medication of Abilify as this medication is making his SI more pronounced, He was recently changed form Zoloft which he was placed on in October of 2021 by Irma Mohamud because the Zoloft per his report was making him angry. Client is followed by [facility] Psychiatry (nest appointment is on 12.14.2021 @ 5pm) out of his home state of [place]. Disposition BEHAVIOR: Ajay is cooperative and engaged. He shows fair insight and judgment. Client is observed constantly rubbing his hair without notice. EYE CONTACT: Client makes good eye contact. MOOD: Client described his mood as depressed and anxious. AFFECT: Client's affect is flat. APPETITE: Client reported he has struggled to eat. SLEEP(trouble falling/staying asleep: Client reported that he either sleeps too little or too much. Plan Client is meeting criteria for an inpaitent referral. Calls will be made during business hours on 12.14.2021. Client will remain at [facility] until placement is found or he is able to appropriately safety plan home. Signature Clinician's Name/Title: Joanie Holt MS, [facility] Emergency Services Clinician, [facility]
[2021-12-14] MEDS: LORazepam 1 MG TAB PO ×3 (02:39→08:32)
--- NOTE | 2021-12-14 05:07 | NUR.NOTE ---
Nursing Note: Phi Pryor, patient's friend, cell number is [phone].
[2021-12-14 06:15] VITALS: TEMP 36.7
[2021-12-14] MEDS: Gabapentin 400 MG CAP PO (08:05)
--- NOTE | 2021-12-14 08:52 | ED.PROG_ITS ---
Date of service: 12/14/21 Time of Service: 07:30 Medical Decision Making Patient signed out to me by Dr. Arzate at time of shift change with voluntary inpatient placement for depression, anxiety, suicidal thinking pending. Patient feeling anxious, intrusive suicidal thoughts, patient was given an additional 1 mg p.o. Ativan in addition to usual morning meds. Patient calm and cooperative throughout shift, no incidents. Patient was excepted for transfer by Dr. Gutiérrez at [facility]. Awaiting [facility] for transportation. Pt left the emergency department with staff to be transported without further incident. Medical Records Medical records reviewed: Yes I reviewed the patient's medical records. Sign Out Sign Out Data: Sign Out Comment: Pending inpatient psych admission. Last updated by Jeremy Arzate MD at 12/14/21 08:20 Discharge Plan Disposition Patient Disposition: STILL A PATIENT Condition: Stable Discharge Details Clinical Impression: Depression, Anxiety Primary Care Provider: Loretta,Local ED Provider: Josefa Herrera Home Meds and New Rx's Prescriptions: No Action lorazepam [Ativan] 0.5 mg Tablet 0.5 mg PO .[id number] PRN lorazepam [Ativan] 1 mg Tablet 1 mg PO .QAM sertraline [Zoloft] 50 mg Tablet 50 mg PO DAILY gabapentin 400 mg Tablet 400 mg PO TID aripiprazole [Abilify] 10 mg Tablet 10 mg PO DAILY Discharge Data Discharge Date/Time-TO BE ENTERED AT DEPARTURE: 12/14/21 16:51
[2021-12-14 09:09] LABS: Source Nasal/Nares
[2021-12-14 13:07] LABS: COVID-19 PCR Negative (Negative)
--- NOTE | 2021-12-14 13:09 | CMSP_ITS ---
- If Service Date Differs Date of service: 12/14/21 Time of Service: 13:09 Care Management Safety Plan Status: Voluntary - Reason for Wait Reason for Wait: Inpatient Admission VOLUNTARY FOR INPATIENT PSYCHIATRIC STABILIZATION. Patient is appropriate in all interactions since arriving at [facility]; Pt has demonstrated appropriate coping and communication skills, has articulated his or her needs and concerns and is fully engaged during staff interactions. A huddle is done with Dr. Herrera, ED provider, Berkley, nursing securities supervisor, Steffany, charge nurse, and YOLANDA Benitez, in attendance. Safety plan has been established with patient, and care team, to adhere to patient goals, identify restrictions based on behavioral status, address nutrition, and determine allowed personal belongings, tools for hygiene and personal care. Determine level of activity including ambulation, level of supervision, visitors, and determine privileges based on behaviors and level of engagement by pt. SAFETY PLAN: 1. Will remain on suicide precautions. In Paper Clothes 2. Will remain in room under direct supervision of one-on-one staff at all times provided by CPSO, ROSARIO, BSW senior chemical process engineer. 3. May have paper cups, plates, finger foods as well as a cardboard spoon with which to eat meals. 4. Follow [facility] Management of the Admitted Behavioral Health Patient policy. 5. Shower permitted with escort at RN discretion. 6. No personal belongings. 7. Visitors-none at this time. 8. Activities: soft cart items, music tablet, television, and other activities at RN discretion. 9. Bathroom privileges with escort in the ED, available in room without limi tation on M/S. 10. Phone: May use [employer] phone at RN discretion. 11. Due to VOLUNTARY status, if patient wishes to leave [facility], staff will contact [facility] Crisis Screener ([phone]) and On-Call Clamshell Engineer ([phone]) as soon as possible. In the event of elopement, notify [place] [employer] Police ([phone]). Patient is currently voluntarily at [facility] and seeking inpatient admission when a bed becomes available. [facility] Frontline Lithographic Etcher will continue seeking placement. Please contact the Subassembly Supervisor Clamshell Engineer ([phone]) and [facility] Lithographic Etcher ([phone]) for any needed changes in the Safety Plan. Safety plan has been provided to interdepartmental care team.
--- NOTE | 2021-12-14 13:09 | PDOC.CMSAFED ---
- If Service Date Differs Date of service: 12/14/21 Time of Service: 13:09 Care Management Safety Plan Status: Voluntary - Reason for Wait Reason for Wait: Inpatient Admission VOLUNTARY FOR INPATIENT PSYCHIATRIC STABILIZATION. Patient is appropriate in all interactions since arriving at [facility]; Pt has demonstrated appropriate coping and communication skills, has articulated his or her needs and concerns and is fully engaged during staff interactions. A huddle is done with Dr. Herrera, ED provider, Berkley, nursing alterations supervisor, Steffany, charge nurse, and YOLANDA Benitez, in attendance. Safety plan has been established with patient, and care team, to adhere to patient goals, identify restrictions based on behavioral status, address nutrition, and determine allowed personal belongings, tools for hygiene and personal care. Determine level of activity including ambulation, level of supervision, visitors, and determine privileges based on behaviors and level of engagement by pt. SAFETY PLAN: 1. Will remain on suicide precautions. In Paper Clothes 2. Will remain in room under direct supervision of one-on-one staff at all times provided by CPSO, ROSARIO, SPACE SYSTEMS OPERATIONS SUPERINTENDENT supervisor metal cans. 3. May have paper cups, plates, finger foods as well as a cardboard spoon with which to eat meals. 4. Follow [facility] Management of the Admitted Behavioral Health Patient policy. 5. Shower permitted with escort at RN discretion. 6. No personal belongings. 7. Visitors-none at this time. 8. Activities: soft cart items, music tablet, television, and other activities at RN discretion. 9. Bathroom privileges with escort in the ED, available in room without limitation on M/S. 10. Phone: May use [employer] hospital phone at RN discretion. 11. Due to VOLUNTARY status, if patient wishes to leave [facility], staff will contact [facility] Crisis Screener ([phone]) and On-Call Facility Coordinator ([phone]) as soon as possible. In the event of elopement, notify [employer] Police ([phone]). Patient is currently voluntarily at [facility] and seeking inpatient admission when a bed becomes available. [facility] Frontline Airline Station Agent will continue seeking placement. Please contact the University Counselor Facility Coordinator ([phone]) and [facility] Airline Station Agent ([phone]) for any needed changes in the Safety Plan. Safety plan has been provided to interdepartmental care team.
--- NOTE | 2021-12-14 14:03 | PDOC.MHCN_ITS ---
Date of service: 12/14/21 Time of Service: 11:15 Mental Health Crisis Note Presenting Issue How did you arrive at the ED and why did you come: The client presented to [facility] emergency department for worsening symptoms of anxiety, SI with intention to overdose, HI (fleeting) on 12.13.21 after post in- patient discharge medication change. The client was released in September from [facility] and was prescribed sertraline which caused anger issues. Outpatient provider [facility] in [place] removed sertaline and started client on Abilify. He currently seeking voluntary in-patient referral and is seen for reassessment today. Precipitating Factors Client presented with depressed affect with mild anxious features (darting glances, prolonged vacant staring). He was appropriate throughout interaction and appeared lucid and coherent. SI: Client reported thoughts of overdosing on medication with thoughts becoming more pervasive over the past week 1/2. On intent, he stated I don't want to but it keeps getting worse and out of my control. HI: Client reported fleeting thoughts of harming others (no specific individuals) and stated To hurt, not kill or anything. Just going off on them until I see blood. Disposition BEHAVIOR: Cooperative, appropriate EYE CONTACT: Prolonged MOOD: Anxious / depressed AFFECT: Congruent to mood APPETITE: Dysregulated - up and down SLEEP(trouble falling/staying asleep: Dysregulated - poor sleep last 2 days. Plan The client will remain at [facility] on voluntary status and await recommended in- patient treatment for medication management and to ensure safety based on presenting symptoms (SI, HI ?fleeting, depression and anxiety). He will be assessed daily by [facility] until placement is secured. If acuity level decreases or if the client feels as though his medication changes can be safely managed on an outpatient basis with additional support, a safety plan back to the community can be considered pending discretion of screener and [facility] medical provider. Referrals (faxed to): [facility], [facility], [facility], [facility] Signature Clinician's Name/Title: Phani Gottlieb [facility] clinician, [place], [facility]
[2021-12-14 15:37] VITALS: BP 125/85; PULSE 95; TEMP 36.7; O2SAT 96
--- NOTE | 2021-12-14 16:27 | CMPROGNOTE_ITS ---
- If Service Date Differs Date of service: 12/14/21 Time of Service: 16:27 Care Management Progress Note DISPOSITION: August is accepted for voluntary placement by the [facility]. He will follow up with [facility] and his plan of care as instructed upon discharge from [facility]. He is transported to the [place] by [facility]. - Status Status: Voluntary - Reason for Wait Reason for Wait: Inpatient Admission
--- NOTE | 2021-12-14 16:27 | PDOC.ERCMPRO ---
- If Service Date Differs Date of service: 12/14/21 Time of Service: 16:27 Care Management Progress Note DISPOSITION: August is accepted for voluntary placement by the [facility]. He will follow up with [facility] and his plan of care as instructed upon discharge from [employer]. He is transported to the [place] by [facility]. - Status Status: Voluntary - Reason for Wait Reason for Wait: Inpatient Admission
[2021-12-14 16:53] VITALS: BP 117/69; PULSE 116; RESP 18; TEMP 36.7; O2SAT 99
== END 2021-12-14 16:51 | disposition still patient (30) ==
PROVIDERS: Emergency Medicine; Emergency Provider Student in an Organized Health Care Education/Training Program
DX: F32.A Depression, unspecified (principal); F41.9 Anxiety disorder, unspecified; R45.851 Suicidal ideations; Z79.899 Other long term (current) drug therapy
CPT/HCPCS: 36415; 80053; 80307; 87635; 93005; 99285; U0005; 80320; 80329; 81003; 84443; 85025; 93010

== ENCOUNTER 2022-03-04 16:11 | Outpatient (REF) | payer MEDICARE, SELFPAY ==
[2022-03-04 19:00] LABS: HCT 43.9 % (40.0-50.0); HGB 15.1 g/dL (13.5-17.5); MCH 31.3 pg (27.0-33.0); MCHC 34.4 % (32.0-36.0); MCV 91 fL (80-95); MPV 10.9 fL (8.0-11.0); Platelet Count 202 10^3/uL (130-400); RBC 4.82 10^6/uL (4.36-5.78); RDW 12.3 % (11.8-14.1); RDW-SD 41.1 fL
[2022-03-04 19:28] LABS: ALT 41 U/L (16-63); AST 18 U/L (15-37); Albumin 3.8 g/dL (3.4-5.0); Alkaline Phosphatase 46 U/L (46-116); Anion Gap 7.7 mmol/L (3-11); BUN 16 mg/dL (7-18); Bilirubin, Total 0.3 mg/dL (0.2-1.0); CO2 31.3 mmol/L (21.0-32.0); CREATININE 1.4 mg/dL (0.70-1.30); Calcium 8.8 mg/dL (8.5-10.1); Chloride 104 mmol/L (98-107); Estimated GFR 64.76 (mL/min/1.73m2); Glucose 63 mg/dL (74-106); Potassium 4.1 mmol/L (3.5-5.1); Sodium 143 mmol/L (136-145); TSH (W/Ref FT4) 2.35 uIU/mL (0.36-3.74); Total Protein 6.9 g/dL (6.4-8.2)
== END 2022-03-04 16:12 | disposition home or self-care (01) ==
LOC: NCHCN 16:11
PROVIDERS: Visit Provider Nurse Practitioner Family
DX: I10 Essential (primary) hypertension (principal); E07.9 Disorder of thyroid, unspecified; Q63.1 Lobulated, fused and horseshoe kidney
CPT/HCPCS: 80053; 85027; 84443

== ENCOUNTER 2022-03-12 15:17 | Outpatient (CLI) | payer MEDICARE, SELFPAY ==
--- NOTE | 2022-03-12 | DI.RAD_ITS ---
Exam(s) XR LUMBAR SPINE COMPLETE EXAM: XR LUMBAR SPINE COMPLETE CLINICAL HISTORY: BACK PAIN, M54.9. TECHNIQUE: 2D digital imaging was performed of the lumbar spine. Six images were obtained. AP, lat eral, right oblique, left oblique and L5-S1 spot views were obtained. COMPARISON: No exams were available for comparison FINDINGS: BONES: No fracture or destructive lesion. Vertebral bodies are unremarkable. No facet hypertrophy torey ntified. DISKS: Intervertebral disc spaces are maintained. ALIGNMENT: Lumbar spinal alignment is within normal limits. No spondylolysis or spondylolisthesis. SOFT TISSUE: There is a 3 mm calcification overlying the right L3 transverse process. It is nonspecif ic but the possibility of a ureteral or renal stone should be considered. Please correlate clinically . If clinically indicated a renal colic CT may be obtained. Surgical clips are seen in the right uppe r quadrant of the abdomen likely reflecting prior cholecystectomy. IMPRESSION: 1. Unremarkable radiographs of the lumbar spine. 2. 3 mm calcification overlying the right L3 transverse process. If there is concern for ureteral or renal stone, renal colic CT may be obtained. DATA REPOSITORY: RADIATION DOSE DELIVERED:
== END 2022-03-12 15:37 ==
LOC: DI 15:18
PROVIDERS: Visit Provider Nurse Practitioner Family
DX: M51.86 Other intervertebral disc disorders, lumbar region (principal)
CPT/HCPCS: 72110

== ENCOUNTER 2022-04-09 00:30 | Inpatient (IN) | payer MEDICARE, SELFPAY ==
[2022-04-09 00:44] VITALS: PULSE 87; RESP 17; TEMP 36.5; O2SAT 95
--- NOTE | 2022-04-09 00:48 | ED.GENADUL_ITS ---
Discharge Plan Disposition Patient Disposition: STILL A PATIENT Condition: Stable Discharge Details Clinical Impression: Depression, Suicidal thoughts Primary Care Provider: Karolyn Rainey ED Provider: Jeremy Arzate [place] Meds and New Rx's Prescriptions: No Action lorazepam [Ativan] 0.5 mg Tablet 0.5 mg PO .[id number] PRN lorazepam [Ativan] 1 mg Tablet 1 mg PO .QAM gabapentin 400 mg Tablet 400 mg PO TID prazosin 1 mg capsule 1 cap PO QHS Label Comments: Take 1 capsule by mouth at bedtime fluvoxamine 25 mg tablet 2 tab PO QHS Label Comments: TAKE TWO TABLETS BY MOUTH EVERY DAY omeprazole 20 mg capsule,delayed release(DR/EC) 1 cap PO QAM Label Comments: 1 tab daily Rx Instructions: TAKE QAM 30MIN BEFORE MORNING MEAL fluticasone propionate 50 mcg/actuation spray,suspension 1 spray INTRANASAL DAILY Label Comments: SPRAY 1 SPRAY INTO BOTH NOSTRILS TWICE A DAY loratadine 10 mg Tablet 10 mg PO DAILY divalproex [Depakote ER] 250 mg Tablet Extended Release 24 Hr 750 mg PO QHS quetiapine [Seroquel] 50 mg Tablet 50 mg PO DAILY Probiotic 20 billion cell Capsule 20 cell PO DAILY Medical Decision Making Patient presenting with worsening depression and increased suicidal thoughts. Denies any drug or alcohol use. Denies acting on any of his thoughts. Here with a friend seeking help. Exam is unremarkable. He has no significant medical problems. He is on Depakote so we will check a level. He also uses Seroquel so we will check EKG. Drug screening also obtained. Patient's EKG is normal. Depakote level is therapeutic. Drug screen, acetaminophen, alcohol, aspirin are all negative. Patient medically cleared for mental health. Patient seen by mental health. He will be a voluntary inpatient psychiatric admission for depression and suicidal ideation. He remains calm and cooperative here. Lab Data Lab results reviewed: Yes I reviewed the patient's lab results. ECG Data Attestation: I personally reviewed and interpreted this ECG (s) as follows: Prior ECG tracings: available for review Interpretation: see Ekg HPI General Mode of arrival: ambulatory . Date/Time Provider Initiated Documentation: 04/09/22 00:47 . Limitations to Documentation: no limitations . Information obtained by: patient and RN notes reviewed . HPI Narrative: Patient presents to ED with increased depression and suicidal thoughts. Patient has had medication changes recently but they do not seem to be helping. He has many different thoughts and ways that he would try to harm himself. He denies acting on any of these. He presents to ED with a friend requesting mental health evaluation and help. He denies any acute physical complaints. He reports having abdominal pain pretty much every day but currently none. He has been taking his medications as directed. He is calm and cooperative. Related Data Home Medications Medication Instructions Recorded Confirmed gabapentin 400 mg tablet 400 mg PO TID 11/10/21 04/09/22 lorazepam 0.5 mg tablet (Ativan) 0.5 mg PO .[id number] PRN 11/10/21 04/09/22 lorazepam 1 mg tablet (Ativan) 1 mg PO .QAM 11/10/21 04/09/22 divalproex 250 mg tablet,extended 750 mg PO QHS 04/09/22 04/09/22 release 24 hr (Depakote ER) fluticasone propionate 50 1 spray intranasal DAILY 04/09/22 04/09/22 mcg/actuation nasal spray,suspension fluvoxamine 25 mg tablet 2 tab PO QHS 04/09/22 04/09/22 lactobacillus comb no.10 20 20 cell PO DAILY 04/09/22 04/09/22 billion cell capsule (Probiotic) loratadine 10 mg tablet 10 mg PO DAILY 04/09/22 04/09/22 omeprazole 20 mg capsule,delayed 1 cap PO QAM 04/09/22 04/09/22 release prazosin 1 mg capsule 1 cap PO QHS 04/09/22 04/09/22 quetiapine 50 mg tablet (Seroquel) 50 mg PO DAILY 04/09/22 04/09/22 Allergies Allergy/AdvReac Type Severity Reaction Status Date / Time amoxicillin Allergy Unverified 04/09/22 00:34 Penicillins Allergy Unverified 04/09/22 00:34 Sulfa (Sulfonamide Allergy Unverified 04/09/22 00:34 Antibiotics) General Stated Complaint: PsychEval CHE: 2 Review of Systems Narrative: 04/16 Review of Systems completed and is negative except as stated above in HPI (Systems reviewed: Const, Eyes, ENT, Resp, CV, GI, , MSK, Skin, Neuro) PFSH All Active Problems (Updated 04/09/22 @ 04:01 by Jeremy Arzate MD) Depression (Chronic) Suicidal thoughts (Acute) Medical History Anxiety Depression GERD (gastroesophageal reflux disease) Surgical History H/O lithotripsy S/P cholecystectomy Social History Smoking/Tobacco Use Status: Never Smoking risk assessment performed?: Yes Alcohol Intake: never Drug use: Never Substance use type: does not use Do you feel safe at home: No (SI/HI) Do you feel safe in your relationship?: Yes Additional Social history: Feels safe with friends but does not feel safe with self. Exam Narrative Exam Narrative: Const: WDWN male in NAD. HEENT: NC/AT. Normal facial exam. Eyes: Normal conjunctiva and sclera. Neck: Supple. Trachea midline. Lungs: Normal respiratory effort. Lungs are clear. Cor: RRR without murmur/gallop. Good radial pulses. GI: Soft. NT/ND. No guarding or rebound. Back: No CVAT Neuro: A+O x 3. Normal speech, mentation, gait. Cranial nerves II - XII grossly intact. No gross motor or sensory deficit. Ext: No C/C/E. Skin: Warm and dry without rash. Psych: Depressed mood with suicidal ideation, normal thought content and speech, no HI. Course Vital Signs Vital signs: Vital Signs Temperature 97.7 F 04/09/22 00:44 Pulse 87 04/09/22 00:44 Respiratory Rate 17 04/09/22 00:44 Pulse Oximetry 95 04/09/22 00:44 Temperature 97.7 F 04/09/22 00:44 Temperature Source Temporal Artery Scan 04/09/22 00:44 Pulse 87 04/09/22 00:44 Respiratory Rate 17 04/09/22 00:44 Pulse Oximetry 95 04/09/22 00:44 Oxygen Delivery Method Room Air 04/09/22 00:44 Oxygen Flow Rate 0 04/09/22 00:44 Pain Level 4 04/09/22 00:44
--- NOTE | 2022-04-09 01:00 | RT.EKG_ITS ---
APPROVED REPORT Exam: Resting ECG Reason for Exam: PSYCH EVAL/MEDS Patient Location: E HR:80 bpm ECG Measurements Heart Rate 80 AXIS OR 155 P 41 QRSd 87 QRS 29 QT 368 T 42 QTc 425 Conclusion Sinus rhythm...normal P axis, V-rate 60- 99 Normal Electrocardiogram
[2022-04-09 01:50] LABS: ETHANOL BLOOD < 3.0 mg/dL (<10)
[2022-04-09 01:58] LABS: Salicylate < 2.8 mg/dL (<2.8); VALPROIC ACID 39.9 ug/mL
[2022-04-09 02:01] LABS: Acetaminophen < 2 ug/mL (10-30)
[2022-04-09 02:51] LABS: Source Nasal/Nares
[2022-04-09] MEDS: LORazepam 1 MG TAB PO (03:01)
--- NOTE | 2022-04-09 06:01 | PDOC.MHCN ---
Date of service: 04/09/22 Time of Service: 06:01 PHQ-9 Over the last 2 weeks, how often have you been bothered by any of the following problems? 1. Little interest or pleasure in doing things: nearly every day 2. Feeling down, depressed, or hopeless: nearly every day 3. Trouble falling or staying asleep, or sleeping too much: nearly every day 4. Feeling tired or having little energy: nearly every day 5. Poor appetite or overeating: nearly every day 6. Feeling bad about yourself - or that you are a failure or have let yourself and your family down: nearly every day 7. Trouble concentrating on things, such as reading the newspaper or watching television: nearly every day 8. Moving or speaking so slowly that other people could have noticed? - Or the opposite - being so fidgety or restless that you have been moving around a lot more than usual: nearly every day 9. Thoughts that you would be better off or of hurting yourself in some way: nearly every day Total score: 27 If you checked off any problems, how difficult have these problems made it for you to do your work, take care of things at home, or get along with other people?: extremely difficult PHQ-9 Results: Positive Source: Developed by Drs. Jeremy Scott, Jillian Rosenthal, Kevin Bullock and colleagues, with an educational nile from [employer]. Suicide Severity Rate CSSRS Have you wished you were or wished you could go to sleep and not wake up?: Yes Have you actually had any thoughts of killing yourself?: Yes CSSRS2 Have you been thinking about how you might do this?: Yes Have you had these thoughts and had some intention of acting on them?: Yes Have you started to work out or worked out the details of how to kill yourself? Do you intend to carry out this plan?: Yes CSSRS3 Have you ever done anything, started to do anything or prepared to do anything to end your life?: No Screening Score Total Score: 4 Screening: Positive Mental Health Emergency Note Release [facility] release signed:: Yes Reason for Visit Client arrived to the ED early this am seeking a voluntary placement due to experiencing suicidal thoughts that have progressively gotten worse over the last two to three weeks. In the last 2 weeks has the pt presented for ES prior to today?: Unknown Client Information Client is: Adult Outpatient Well Housed: Yes Current Treatment Team if applicable First care guest service team leader: Name: Karolyn Ashraf (last name unknown) Role: PCP and therapist at [facility] Contact Info: [phone] Second care guest service team leader: Name: Quiana Leigh Role: PMHNP Non Suicidal Self Injury Current: No History: No Safety Risk/Harm to Self or Others Current Ideation to Harm Self or Others: Yes to self. Intent: yes, has intent. Plan: yes,has a plan. History of suicide attempt: No history of suicide attempt reported Risk: Does risk to harm exist?: yes. Access to means: Yes. Types of Means: Other weapons and Medication. Counseling provided: Yes Risk: High Risk Duty to warn indicated: No Asssessment/Mental Status Appearance: Well groomed Attitude: Cooperative and Friendly Behavior: Unremarkable Speech: Normal Affect: Flat and Cogruent with mood Mood: Sad Thought process: Goal directed Hallucinations: No Delusions: No Attention: Unremarkable Perception: Not impaired Orientation: Fully orientated Memory: Intact Insight: Good Judgement: Good Neurovegetative Symptoms Sleep: Increase Appetitie: Decrease Interests: Decrease Energy: Decrease Libido: Not applicable Substance Use: Do you use nicotine?: No Have you used substances in the last 7 days?: No Additional Issues: Assaultive/Threatening Behavior: No Medical Concerns: No Client engaged in active self harm w/weapon: No Threatening to run away: No Child reported abuse/neglect: No Voluntarily presenting for services: Yes Domestic violence is a concern: No Extreme Psychosis or extreme behavior is present: No Impression Client is a 41 year old male who presented to the ED seeking voluntary inpatient treatment to address his symptoms associated with his depression and his SI. Client reported that he has lost all hope and I don't care to live anymore. He stated that he has researched ways to end his life on line like cutting himself, overdosing on medications and jumping in front of a car. His final thought that he believes is the best is to drown himself swim out to sea and let it go from there. He presents as significantly depressed and hopeless. He would benefit from an inpatient stay where his medications can be adjusted and symptoms decreased. Resources Reosurces reviewed and given:: [id number] Plan/Disposition Recommended Disposition: Hospitalization (Will call when office is open. ) No. Plan: Client will be referred to an inpatient treatment facility and assessed daily until placement is found or he is able to safely safety plan back to his community. Person reported agreement to plan: Yes Reports/communication Outcome discussed with: ED/Personnel
[2022-04-09 06:24] LABS: *AMPHETAMINES SCREEN URINE Negative (Negative); *BARBITURATES SCREEN URINE Negative (Negative); *BENZODIAZEPINES SCREEN URINE Negative (Negative); Cannabinoids THC Negative (Negative); Cocaine Screen,Urine Negative (Negative); METHADONE URINE SCREEN Negative (Negative); OPIATES URINE SCREEN Negative (Negative)
[2022-04-09 06:40] LABS: Tricyclic Antidepressants Negative (Negative)
--- NOTE | 2022-04-09 08:27 | NUR.NOTE ---
Patient states he has received two covid vaccines (mobiDEOS) does not recall dates received. Nursing Note:
--- NOTE | 2022-04-09 08:53 | W.EDPROG ---
Date of service: 04/09/22 Time of Service: 08:53 Medical Decision Making patient stable, is here voluntary for psych placement for si/depression. No beds currently avaiable, discussed with hospitalist dr. weiner who accepts for admission until placement found. Sign Out Sign Out Data: Sign Out Comment: voluntary inpatient psych pending placement Last updated by Jeremy Arzate MD at 04/09/22 07:26 Discharge Plan Disposition Patient Disposition: [facility] INPATIENT Condition: Stable Discharge Details Clinical Impression: Depression, Suicidal thoughts Primary Care Provider: Karolyn Rainey ED Provider: Tay Patterson Home Meds and New Rx's Prescriptions: No Action lorazepam [Ativan] 0.5 mg Tablet 0.5 mg PO .[id number] PRN lorazepam [Ativan] 1 mg Tablet 1 mg PO .QAM gabapentin 400 mg Tablet 400 mg PO TID prazosin 1 mg capsule 1 cap PO QHS Label Comments: Take 1 capsule by mouth at bedtime fluvoxamine 25 mg tablet 2 tab PO QHS Label Comments: TAKE TWO TABLETS BY MOUTH EVERY DAY omeprazole 20 mg capsule,delayed release(DR/EC) 1 cap PO QAM Label Comments: 1 tab daily Rx Instructions: TAKE QAM 30MIN BEFORE MORNING MEAL fluticasone propionate 50 mcg/actuation spray,suspension 1 spray INTRANASAL DAILY Label Comments: SPRAY 1 SPRAY INTO BOTH NOSTRILS TWICE A DAY loratadine 10 mg Tablet 10 mg PO DAILY divalproex [Depakote ER] 250 mg Tablet Extended Release 24 Hr 750 mg PO QHS quetiapine [Seroquel] 50 mg Tablet 50 mg PO DAILY Probiotic 20 billion cell Capsule 20 cell PO DAILY
--- NOTE | 2022-04-09 09:14 | CMSP_ITS ---
- If Service Date Differs Date of service: 04/09/22 Time of Service: 09:14 Care Management Safety Plan Status: Voluntary - Reason for Wait Reason for Wait: Inpatient Admission VOLUNTARY FOR INPATIENT PSYCHIATRIC STABILIZATION. Patient is appropriate in all interactions since arriving at [facility]; Pt has demonstrated appropriate coping and communication skills, has articulated his or her needs and concerns and is fully engaged during staff interactions. Safety plan has been established with patient, and care team, to adhere to patient goals, identify restrictions based on behavioral status, address nutrition, and determine allowed personal belongings, tools for hygiene and personal care. Determine level of activity including ambulation, level of supervision, visitors, and determine privileges based on behaviors and level of engagement by pt. SAFETY PLAN: 1. Will remain on suicide precautions. In Paper Clothes 2. Will remain in room under direct supervision of one-on-one staff at all times provided by CPSO; ROSARIO, PLUMBER'S HELPER glue jointer operator. 3. May have paper cups, plates, finger foods as well as a cardboard spoon with which to eat meals. 4. Follow [facility] Management of the Admitted Behavioral Health Patient policy. 5. Comfort bath system only at RN discretion. 6. No personal belongings-soft items permitted at RN discretion. 7. Visitors-none at this time. 8. Activities: soft cart items approved per RN discretion. 9. Bathroom privileges with escort in the ED, available in room without limitation on M/S. 10. Phone: contact limited to family at this time, via cordless phone at RN discretion. 11. Due to VOLUNTARY status, if patient wishes to leave [facility], staff will contact [facility] Crisis Screener ([phone]) and On-Call Automobile Body Customizer ([phone]) as soon as possible. In the event of elopement, notify [facility] Police ([phone]). Patient is currently voluntarily at [facility] and seeking inpatient admission when a bed becomes available. [facility] Frontline Machinist Wood will continue seeking placement. Please contact the Chemical Research Technician Automobile Body Customizer ([phone]) and [facility] Machinist Wood ([phone]) for any needed changes in the Safety Plan. Safety plan has been provided to interdepartmental care team.
[2022-04-09 09:21] LABS: COVID-19 PCR Negative (Negative)
[2022-04-09] MEDS: QUEtiapine 50 MG TAB PO (09:49)
[2022-04-09] MEDS: Omeprazole 20 MG CAPCR PO (09:49)
--- NOTE | 2022-04-09 10:23 | W.PM.HP.N ---
Date of service: 04/09/22 Time of Service: 10:23 Assessment and Plan Assessment and plan (1) Suicidal thoughts: Status: Acute Assessment and plan: medically cleared and screened by mental health deemed safe for voluntary inpatient psychiatric admission no behavioral disturbances continue home meds safety/suicidal precautions with safety plan and cpso (2) Depression: Status: Chronic Assessment and plan: as above discussed with DR Gray History of Present Illness History of Present Illness Chief Complaint: depression and suicidal ideation Narrative: This is a 41 year old male who presented to ED with increased depression and suicidal thoughts.? Patient has had medication changes recently but they do not seem to be helping.? He has many different thoughts and ways that he would try to harm himself.? He denies acting on any of these.? He presents to ED with a friend requesting mental health evaluation and help.? He denies any acute physical complaints.?? Review of Systems All systems reviewed & are unremarkable except as noted in HPI and below Constitutional Constitutional: Reports as per HPI and Denies fever(s) Psychiatric Psychiatric: Reports depression and Reports suicidal ideation PFSH All Active Problems (Updated 04/09/22 @ 04:01 by Jeremy Arzate MD) Depression (Chronic) Suicidal thoughts (Acute) Medical History Anxiety Depression GERD (gastroesophageal reflux disease) Surgical History H/O lithotripsy S/P cholecystectomy Social History Smoking/Tobacco Use Status: Never Smoking risk assessment performed?: Yes Alcohol Intake: never Drug use: Never Substance use type: does not use Do you feel safe at home: No (SI/HI) Do you feel safe in your relationship?: Yes Additional Social history: Feels safe with friends but does not feel safe with self. Meds Allergies and Home Medications Allergies Allergy/AdvReac Type Severity Reaction Status Date / Time amoxicillin Allergy Unverified 04/09/22 00:34 Penicillins Allergy Unverified 04/09/22 00:34 Sulfa (Sulfonamide Allergy Unverified 04/09/22 00:34 Antibiotics) Home Medications Medication Instructions Recorded Confirmed Type gabapentin 400 mg tablet 400 mg PO TID 11/10/21 04/09/22 History lorazepam 0.5 mg tablet (Ativan) 0.5 mg PO .[id number] PRN 11/10/21 04/09/22 History lorazepam 1 mg tablet (Ativan) 1 mg PO .QAM 11/10/21 04/09/22 History divalproex 250 mg tablet,extended 750 mg PO QHS 04/09/22 04/09/22 History release 24 hr (Depakote ER) fluticasone propionate 50 1 spray intranasal DAILY 04/09/22 04/09/22 History mcg/actuation nasal spray,suspension fluvoxamine 25 mg tablet 2 tab PO QHS 04/09/22 04/09/22 History lactobacillus comb no.10 20 20 cell PO DAILY 04/09/22 04/09/22 History billion cell capsule (Probiotic) loratadine 10 mg tablet 10 mg PO DAILY 04/09/22 04/09/22 History omeprazole 40 mg capsule,delayed 40 mg PO DAILY 04/09/22 04/09/22 History release prazosin 1 mg capsule 1 cap PO QHS 04/09/22 04/09/22 History quetiapine 50 mg tablet (Seroquel) 50 mg PO DAILY 04/09/22 04/09/22 History Results Labs Labs: Laboratory Results - last 24 hr 04/09/22 04/09/22 04/09/22 01:25 01:25 02:48 Salicylates < 2.8 Urine Opiates Screen Urine Methadone Screen Acetaminophen < 2 Ur Barbiturates Screen Valproic Acid 39.9 Ur Tricyclics Screen Ur Amphetamines Screen U Benzodiazepines Scrn Urine Cocaine Screen Ur THC Screen Ethyl Alcohol < 3.0 COVID-19 Source Nasal/Nares SARS-CoV-2 (PCR) Negative 04/09/22 06:00 Salicylates Urine Opiates Screen Negative Urine Methadone Screen Negative Acetaminophen Ur Barbiturates Screen Negative Valproic Acid Ur Tricyclics Screen Negative Ur Amphetamines Screen Negative U Benzodiazepines Scrn Negative Urine Cocaine Screen Negative Ur THC Screen Negative Ethyl Alcohol COVID-19 Source SARS-CoV-2 (PCR) Last Vital Signs Temp 36.5 C 04/09/22 00:44 Pulse 87 04/09/22 00:44 Resp 17 04/09/22 00:44 Pulse Ox 95 04/09/22 00:44
--- NOTE | 2022-04-09 10:29 | NUR.NOTE ---
Patient speaking with human services on [employer] brought in by career representative. Nursing Note:
--- NOTE | 2022-04-09 10:37 | NUR.NOTE ---
Patient has complaints of feeling anxious after talking with mental health on Ipad. Patient requesting more ativan. RN notified. Nursing Note:
--- NOTE | 2022-04-09 14:07 | NUR.NOTE ---
Attempted to get blanket for patient via radio. Nursing Note:
--- NOTE | 2022-04-09 14:39 | NUR.NOTE ---
This financial writer noticed that the patient had not gone to the bathroom at all today, asked patient to get up and try. I think patient might need queuing. Nursing Note:
[2022-04-09] MEDS: Gabapentin 400 MG CAP PO (14:42)
[2022-04-09 14:45] VITALS: BP 105/72
[2022-04-09 14:57] VITALS: BP 105/72; PULSE 76; RESP 20; TEMP 36.3; O2SAT 100
[2022-04-09 14:58] VITALS: BP 105/72; PULSE 76; RESP 20; TEMP 36.3; O2SAT 100
[2022-04-09] MEDS: LORazepam 0.5 MG TAB PO (16:05)
--- NOTE | 2022-04-09 16:07 | W.PM.DS.N ---
Date of service: 04/09/22 Time of Service: 16:07 DS: Diagnosis Discharge Diagnosis (1) Suicidal thoughts: Status: Acute Asessment and Plan: inpatient voluntary psychiatric admission to [facility] transported by [facility] (2) Depression: Status: Chronic Discharge Plan Disposition Patient Disposition: [facility] Condition: Stable Discharge Details Reason For Visit: Suicidal Ideation Admit Date/Time: 04/09/22 08:30 Admit Provider: Rohan Gray Attending Provider: Rohan Gray Primary Care Provider: Karolyn Rainey Hospital Course Hospital Course: This is a 41 year old male who presented to ED with increased depression and suicidal thoughts.? Patient has had medication changes recently but they do not seem to be helping.?He was medically screened in the ED and cleared for psychiatric evaluation. deemed safe for inpatient voluntary psychiatric admission. no beds initially available and with no behavioral disturbances was moved to transition unit. notified bed at [facility] and patient transported by ground ems. discharged discussed with Dr Gray [facility] and New Rx's Prescriptions: Continued lorazepam [Ativan] 0.5 mg Tablet 0.5 mg PO .[id number] PRN lorazepam [Ativan] 1 mg Tablet 1 mg PO .QAM gabapentin 400 mg Tablet 400 mg PO TID prazosin 1 mg capsule 1 cap PO QHS Label Comments: Take 1 capsule by mouth at bedtime fluvoxamine 25 mg tablet 2 tab PO QHS Label Comments: TAKE TWO TABLETS BY MOUTH EVERY DAY fluticasone propionate 50 mcg/actuation spray,suspension 1 spray INTRANASAL DAILY Label Comments: SPRAY 1 SPRAY INTO BOTH NOSTRILS TWICE A DAY loratadine 10 mg Tablet 10 mg PO DAILY divalproex [Depakote ER] 250 mg Tablet Extended Release 24 Hr 750 mg PO QHS quetiapine [Seroquel] 50 mg Tablet 50 mg PO DAILY Probiotic 20 billion cell Capsule 20 cell PO DAILY omeprazole 40 mg Capsule,Delayed Release(Dr/Ec) 40 mg PO DAILY Discharge Instructions Stand Alone Forms: Nursing Discharge Form Activity:: Activity as Tolerated Equipment/Supplies:: No Equipment Needed Diet:: As Tolerated Discharge Orders Discharge Orders: Discharge Order (Routine); Ordered 04/09/22 Ordered By: Concepcion Rubio Discharge Data Discharge Date/Time-TO BE ENTERED AT DEPARTURE: 04/09/22 17:03 DS: Summary Time Spent with Patient providing and/or coordinating discharge services: Less than 30 minutes Status at Discharge Functional status at discharge: independent ambulation Overall status at discharge: patient is not back to baseline Mental Status: mental status grossly normal and other (cooperative) Speech and Movement: speech and movement normal Mood: other (cooperative) Affect: anxious affect Exam Const General: cooperative and comfortable Nutritional Appearance: average body habitus Orientation: alert, awake and oriented x3 Psych Mental Status: mental status grossly normal and other (cooperative) Speech and Movement: speech and movement normal Mood: other (cooperative) Affect: anxious affect DS: Data Vitals/I&O Vitals and I&O: Vital Signs Temperature 36.3 C L 04/09/22 14:58 Temperature Source Tympanic 04/09/22 14:57 Pulse 76 04/09/22 14:58 Pulse Rhythm Regular 04/09/22 14:45 Respiratory Rate 20 04/09/22 14:58 Respiratory Effort 04/09/22 14:45 Respiratory Depth Normal 04/09/22 14:45 Respiratory Pattern Normal 04/09/22 14:45 Blood Pressure 105/72 04/09/22 14:58 Pulse Oximetry 100 04/09/22 14:58 Oxygen Delivery Method Room Air 04/09/22 14:58 Oxygen Flow Rate 0 04/09/22 14:58 Pain Level 0 04/09/22 14:57 Comment 04/09/22 14:58 Intake & Output 04/08/22 04/09/22 04/09/22 23:59 11:59 23:59 Intake Total 480 / 720 240 / 720 Balance 480 / 720 240 / 720 Weight 74.843 kg 74.843 kg Intake: Oral 480 / 720 240 / 720 Other: Voiding Methods Toilet Data Completed and Pending Labs on day of discharge: Labs from last 24 hours 04/09/22 04/09/22 04/09/22 06:00 02:48 01:25 Salicylates Urine Opiates Screen Negative Urine Methadone Screen Negative Acetaminophen Ur Barbiturates Screen Negative Valproic Acid Ur Tricyclics Screen Negative Ur Amphetamines Screen Negative U Benzodiazepines Scrn Negative Urine Cocaine Screen Negative Ur THC Screen Negative Ethyl Alcohol < 3.0 COVID-19 Source Nasal/Nares SARS-CoV-2 (PCR) Negative 04/09/22 01:25 Salicylates < 2.8 Urine Opiates Screen Urine Methadone Screen Acetaminophen < 2 Ur Barbiturates Screen Valproic Acid 39.9 Ur Tricyclics Screen Ur Amphetamines Screen U Benzodiazepines Scrn Urine Cocaine Screen Ur THC Screen Ethyl Alcohol COVID-19 Source SARS-CoV-2 (PCR) PFSH All Active Problems (Updated 04/09/22 @ 04:01 by Jeremy Arzate MD) Depression (Chronic) Suicidal thoughts (Acute) Medical History Anxiety Depression GERD (gastroesophageal reflux disease) Surgical History H/O lithotripsy S/P cholecystectomy Social History Smoking/Tobacco Use Status: Never Smoking risk assessment performed?: Yes Alcohol Intake: never Drug use: Never Substance use type: does not use Do you feel safe at home: No (SI/HI) Do you feel safe in your relationship?: Yes Additional Social history: Feels safe with friends but does not feel safe with self.
--- NOTE | 2022-04-09 16:58 | NUR.NOTE ---
Pt refused meal said he wasn't hungry. Michael crackers were offered which he accepted for the ride to [facility]. Nursing Note:
== END 2022-04-09 17:03 | disposition short-term general hospital (02) | DRG 881 ==
LOC: ER 08:54 → MS 09:47
PROVIDERS: Emergency Medicine; Admitting Provider Internal Medicine; Emergency Provider Emergency Medicine; PCP Nurse Practitioner Family; Visit Provider Internal Medicine
DX: F32.A Depression, unspecified (principal); R45.851 Suicidal ideations; K21.9 Gastro-esophageal reflux disease without esophagitis; Z79.899 Other long term (current) drug therapy
CPT/HCPCS: 80307; 87635; 93005; 99285; 80164; 80320; 80329; 93010; 99217; 99235

== ENCOUNTER 2022-06-16 17:48 | Emergency (ER) | payer MEDICARE, SELFPAY ==
[2022-06-16 17:59] VITALS: BP 110/72; PULSE 75; RESP 18; TEMP 37.4; O2SAT 97
--- NOTE | 2022-06-16 18:38 | W.ED.GENAD ---
Discharge Plan Disposition Patient Disposition: Home Condition: Improving Discharge Details Chief Complaint: PsychEval Clinical Impression: Depression Primary Care Provider: Karolyn Rainey ED Provider: Humberto Johnston Home Meds and New Rx's Prescriptions: No Action acetaminophen 500 mg tablet 1,000 mg PO Q6H PRN cetirizine 10 mg tablet 10 mg PO DAILY fluvoxamine 50 mg tablet 50 mg PO QHS gabapentin 400 mg tablet 400 mg PO QHS Latuda 20 mg tablet 10 mg PO QPM Rx Instructions: must administer with food (at least 350 calories) lorazepam [Ativan] 0.5 mg tablet 0.5 mg PO BID PRN magnesium hydroxide [Milk of Magnesia] 400 mg/5 mL suspension 30 ml PO DAILY PRN alum-mag hydroxide-simeth 400-400-30 mg/5 mL suspension 30 ml PO DAILY PRN prazosin 1 mg capsule 4 mg PO QHS Label Comments: Take 1 capsule by mouth at bedtime hydroxyzine pamoate [Vistaril] 50 mg capsule 50 mg PO TID PRN lorazepam [Ativan] 1 mg Tablet 1 mg PO .QAM fluvoxamine 25 mg tablet 2 tab PO QHS Label Comments: TAKE TWO TABLETS BY MOUTH EVERY DAY fluticasone propionate 50 mcg/actuation spray,suspension 1 spray INTRANASAL DAILY Label Comments: SPRAY 1 SPRAY INTO BOTH NOSTRILS TWICE A DAY loratadine 10 mg Tablet 10 mg PO DAILY divalproex [Depakote ER] 250 mg Tablet Extended Release 24 Hr 750 mg PO QHS quetiapine [Seroquel] 50 mg Tablet 50 mg PO DAILY Probiotic 20 billion cell Capsule 20 cell PO DAILY omeprazole 40 mg Capsule,Delayed Release(Dr/Ec) 40 mg PO DAILY Discharge Instructions Instructions: Depression (ED) Additional Instructions: Please follow-up with your psychiatrist and [facility] as scheduled. Medical Decision Making 42-year-old male history of depression, presents with worsening depression anxiety and suicidal ideation. No self-harm or suicide attempts currently. Lives with adult friend roommates we feel safe with. Patient is alert oriented hemodynamically stable however is very anxious. Endorses medication compliance. Has received inpatient psychiatric hospital care in the past. No evidence of trauma or intoxication. No evidence of infectious process. Will provide anxiolysis, will coordinate evaluation by [facility]. Disposition pending assessment by mental health team 21: 26 patient resting comfortably no acute distress. Patient assessed by his primary psychiatrist as well as [facility] human services and a plan has been made for close follow-up tomorrow. HPI General Date/Time Provider Initiated Documentation: 06/16/22 18:02. HPI Narrative: 42-year-old male history of depression presents with worsening depression and suicidal ideation, denies visual or auditory hallucinations. Denies active self-harm. Lives with friends, adult roommates, who he feels safe with. Has been taking his medications as prescribed. Denies access to firearms at home. Related Data Home Medications Medication Instructions Recorded Confirmed lorazepam 1 mg tablet (Ativan) 1 mg PO .QAM 11/10/21 04/09/22 divalproex 250 mg tablet,extended 750 mg PO QHS 04/09/22 04/09/22 release 24 hr (Depakote ER) fluticasone propionate 50 1 spray intranasal DAILY 04/09/22 04/09/22 mcg/actuation nasal spray,suspension fluvoxamine 25 mg tablet 2 tab PO QHS 04/09/22 04/09/22 lactobacillus comb no.10 20 20 cell PO DAILY 04/09/22 04/09/22 billion cell capsule (Probiotic) loratadine 10 mg tablet 10 mg PO DAILY 04/09/22 04/09/22 omeprazole 40 mg capsule,delayed 40 mg PO DAILY 04/09/22 04/09/22 release quetiapine 50 mg tablet (Seroquel) 50 mg PO DAILY 04/09/22 04/09/22 acetaminophen 500 mg tablet 1,000 mg PO Q6H PRN 05/20/22 aluminum-mag hydroxide-simethicone 30 ml PO DAILY PRN 05/20/22 400 mg-400 mg-30 mg/5 mL oral susp cetirizine 10 mg tablet 10 mg PO DAILY 05/20/22 fluvoxamine 50 mg tablet 50 mg PO QHS 05/20/22 gabapentin 400 mg tablet 400 mg PO QHS 05/20/22 hydroxyzine pamoate 50 mg capsule 50 mg PO TID PRN 05/20/22 (Vistaril) lorazepam 0.5 mg tablet (Ativan) 0.5 mg PO BID PRN 05/20/22 lurasidone 20 mg tablet (Latuda) 10 mg PO QPM 05/20/22 magnesium hydroxide 400 mg/5 mL 30 ml PO DAILY PRN 05/20/22 oral suspension (Milk of Magnesia) prazosin 1 mg capsule 4 mg PO QHS 05/20/22 Allergies Allergy/AdvReac Type Severity Reaction Status Date / Time amoxicillin Allergy Unverified 04/09/22 00:34 Penicillins Allergy Unverified 04/09/22 00:34 Sulfa (Sulfonamide Allergy Unverified 04/09/22 00:34 Antibiotics) General Stated Complaint: PsychEval CHE: 2 Review of Systems Narrative: Review of Systems Constitutional: negative Eyes: negative ENT: negative Cardiovascular: negative Respiratory: negative Gastrointestinal: negative : negative Musculoskeletal: negative Skin: negative Neurologic: negative Psych: Suicidal ideation PFSH All Active Problems (Updated 06/16/22 @ 21:27 by Humberto Johnston MD) Depression (Chronic) Suicidal thoughts (Acute) Medical History (Updated 06/16/22 @ 21:27 by Humberto Johnston MD) Anxiety Bipolar 1 disorder Depression GERD (gastroesophageal reflux disease) History of depression OCD (obsessive compulsive disorder) PTSD (post-traumatic stress disorder) Surgical History H/O lithotripsy S/P cholecystectomy Family History (Updated 05/13/22 @ 12:35 by Veda Larson) Uncle Bipolar 1 disorder Social History Smoking/Tobacco Use Status: Never Smoking risk assessment performed?: Yes Alcohol Intake: never Drug use: Never Substance use type: does not use Do you feel safe at home: Yes (SI/HI) Do you feel safe in your relationship?: Yes Additional Social history: Feels safe with friends but does not feel safe with self. Exam Narrative Exam Narrative: Physical Examination General: alert, awake, cooperative, resting comfortably, no acute distress HEENT: normocephalic, atraumatic; PERRL, EOM intact, conjunctiva normal; no nasal discharge; moist mucous membranes, oral and pharyngeal mucosa normal, tolerating secretions Neck: supple, trachea midline; full ROM Chest: normal to inspection Respiratory: normal respiratory effort, speaking in full sentences, clear to auscultation, no wheezing, rales or rhonchi Cardiac: regular rate, regular rhythm, S1S2 intact, no murmurs rubs or gallops GI: abdomen soft, non-tender, non-distended; no palpable mass or hepatosplenomegaly Skin: no lesions, rashes or trauma appreciated Neuro: AAOx3, normal speech, moving all extremities Psych: Psychomotor agitation, anxiety, depression, suicidal ideation Course Vital Signs Vital signs: Vital Signs Temperature 37.4 C 06/16/22 17:59 Pulse 75 06/16/22 17:59 Respiratory Rate 18 06/16/22 17:59 Blood Pressure 110/72 06/16/22 17:59 Pulse Oximetry 97 06/16/22 17:59 Temperature 37.4 C 06/16/22 17:59 Temperature Source Temporal Artery Scan 06/16/22 17:59 Pulse 75 06/16/22 17:59 Respiratory Rate 18 06/16/22 17:59 Respiratory Effort Non-Labored 06/16/22 18:02 Blood Pressure 110/72 06/16/22 17:59 Blood Pressure Position Sitting 06/16/22 17:59 Pulse Oximetry 97 06/16/22 17:59 Oxygen Delivery Method Room Air 06/16/22 17:59 Oxygen Flow Rate 0 06/16/22 17:59 Pain Level 0 06/16/22 17:59
[2022-06-16] MEDS: LORazepam 1 MG TAB PO (18:49)
--- NOTE | 2022-06-17 15:43 | PDOC.MHCN_ITS ---
Date of service: 06/16/22 Time of Service: 15:43 PHQ-9 Over the last 2 weeks, how often have you been bothered by any of the following problems? 1. Little interest or pleasure in doing things: nearly every day 2. Feeling down, depressed, or hopeless: nearly every day 3. Trouble falling or staying asleep, or sleeping too much: nearly every day 4. Feeling tired or having little energy: nearly every day 5. Poor appetite or overeating: nearly every day 6. Feeling bad about yourself - or that you are a failure or have let yourself and your family down: nearly every day 7. Trouble concentrating on things, such as reading the newspaper or watching television: more than half the days 8. Moving or speaking so slowly that other people could have noticed? - Or the opposite - being so fidgety or restless that you have been moving around a lot more than usual: nearly every day 9. Thoughts that you would be better off or of hurting yourself in some way: several days Total score: 24 If you checked off any problems, how difficult have these problems made it for you to do your work, take care of things at home, or get along with other people?: extremely difficult Source: Developed by Drs. Jeremy Scott, Jillian Rosenthal, Kevin Bullock and colleagues, with an educational nile from [employer]. Suicide Severity Rate CSSRS Have you wished you were or wished you could go to sleep and not wake up?: Yes Have you actually had any thoughts of killing yourself?: Yes CSSRS2 Have you been thinking about how you might do this?: Yes Have you had these thoughts and had some intention of acting on them?: No Have you started to work out or worked out the details of how to kill yourself? Do you intend to carry out this plan?: No CSSRS3 Have you ever done anything, started to do anything or prepared to do anything to end your life?: Yes CSSRS4 Was this within the past three months?: Yes Screening Score Total Score: 8 Screening: Positive Mental Health Emergency Note Release [facility] release signed:: Yes Reason for Visit This clinician had numerous calls come in at the same time as well as a call from the client's PMHNP to alert [facility] of his arrival to [facility] and her concerns (please see previous contact note for details of that conversation). This is what took so long for this clinician to respond via zoom to do the assessment. Client arrived to the ED seeking placement due to uncontrolled anxiety that has affected him physically (lost 15 lbs in 3 weeks), emotionally and mentally. In the last 2 weeks has the pt presented for ES prior to today?: No Client Information Client is: Adult Outpatient Well Housed: Yes Non Suicidal Self Injury Current: No History: No Safety Risk/Harm to Self or Others Current Ideation to Harm Self or Others: No Risk: Does risk to harm exist?: No Risk: Low Risk Duty to warn indicated: No Asssessment/Mental Status Appearance: Unremarkable Attitude: Cooperative Behavior: Repetitive movements (Rubbing head and face continuously and left hand shaking uncontrollably. ) Speech: Normal Affect: Cogruent with mood Mood: Stressed and Anxious Thought process: Goal directed Hallucinations: No Delusions: No Attention: Unremarkable Perception: Not impaired Orientation: Fully orientated Memory: Intact Insight: Good Judgement: Good Neurovegetative Symptoms Sleep: No change (Hard time going to sleep but once asleep he sleeps well per his report. ) Appetitie: Decrease Interests: Decrease Energy: Decrease Libido: Not applicable Substance Use: Do you use nicotine?: No Have you used substances in the last 7 days?: No Additional Issues: Assaultive/Threatening Behavior: No Medical Concerns: No Client engaged in active self harm w/weapon: No Threatening to run away: No Child reported abuse/neglect: No Voluntarily presenting for services: Yes Domestic violence is a concern: No Extreme Psychosis or extreme behavior is present: No Impression Client is a 41 year old male who presented to the ED seeking voluntary inpatient treatment to address his symptoms. He has struggled to manage his heightened level of anxiety and felt he needed a higher level of treatment. He was not endorsing imminent risk of SI and was willing to engage in a safe for now SP for the night with a follow up appointment with his PMHNP on 06.17.2022 @ 2:30pm. He was informed that if he did not believe he could keep himself safe t o outreach to [facility] and/or return to [facility] and we would reevaluate his situation and accommodate his need. Client's symptoms of loss of weight, involuntary body movements and excessive worry suggest a diagnosis of anxiety disorder. He has had three other [place] psychiatric admissions since his relocation to [place], 2 at and one at [facility]. he does not wish to return to [facility] as he did not feel he got what he needed there however was informed that we do not have the availability to refuse treatment when offered so he could go to any of the 4 available hospitals for treatment. Resources Reosurces reviewed and given:: Community therapist Plan/Disposition Recommended Disposition: Psych Screening. Plan: With PMHNP on 06.17.2022 @ 2:30pm. Person reported agreement to plan: Yes Reports/communication Outcome discussed with: ED/Personnel
== END 2022-06-16 21:47 | disposition home or self-care (01) ==
PROVIDERS: Emergency Provider Emergency Medicine; PCP Nurse Practitioner Family
DX: F32.A Depression, unspecified (principal); R45.851 Suicidal ideations; F41.9 Anxiety disorder, unspecified
CPT/HCPCS: 99283

== ENCOUNTER 2022-06-17 12:02 | Observation (INO) | payer MEDICARE, SELFPAY ==
[2022-06-17 12:04] VITALS: BP 101/55; PULSE 108; RESP 18; TEMP 37; O2SAT 99
--- NOTE | 2022-06-17 12:16 | W.ED.GENAD ---
Discharge Plan Discharge Details Chief Complaint: PsychEval Primary Care Provider: Karolyn Rainey ED Provider: Rohan Parks Home Meds and New Rx's Prescriptions: No Action acetaminophen 500 mg tablet 1,000 mg PO Q6H PRN gabapentin 400 mg tablet 400 mg PO QHS prazosin 1 mg capsule 4 mg PO QHS Label Comments: Take 1 capsule by mouth at bedtime fluticasone propionate 50 mcg/actuation spray,suspension 1 spray INTRANASAL DAILY Label Comments: SPRAY 1 SPRAY INTO BOTH NOSTRILS TWICE A DAY Probiotic 20 billion cell Capsule 20 cell PO DAILY omeprazole 40 mg Capsule,Delayed Release(Dr/Ec) 40 mg PO DAILY diphenhydramine HCl [Benadryl] 50 mg Capsule 50 mg PO QHS clonazepam 0.5 mg tablet 1 mg PO TID Label Comments: Take 1 tablet by mouth every eight hours as needed trazodone 150 mg tablet 1 tab PO QHS Label Comments: TAKE ONE TABLET BY MOUTH AT BEDTIME buspirone 10 mg tablet 20 mg PO TID Label Comments: TAKE TWO TABLETS BY MOUTH THREE TIMES A DAY Medical Decision Making 42-year-old gentleman presents for evaluation of anxiety, worsening depression with SI, thoughts of cutting himself or overdosing. Denies any self-harm today. Denies alcohol use, drug use, smoking. He does not feel safe at home and believes that he requires hospitalization. Denies any acute medical concerns or complaints. Using the smart medical clearance, patient has been medically cleared. Requesting a interim care plan, CPSO, and a mental health evaluation. Mental health evaluation completed, patient will be a voluntary placement. Given the overall bed status hospitalwide, plan is to board the patient in the ER while placement is found. Patient has been cooperative during my shift This documentation was generated using [employer] dictation system, please disregard any oddities of phrase or misspellings. Care was signed out to YAMILE Wisdom at 1530 Medical Records Medical records reviewed: Yes I reviewed the patient's medical records. Lab Data Lab results reviewed: Yes I reviewed the patient's lab results. Labs: Laboratory Tests Range/Units 06/17/22 06/17/22 06/17/22 13:00 14:46 14:46 Urine Color (Yellow) Yellow Urine Clarity (Clear) Clear Urine pH (5-8) 6.0 Ur Specific [place] (1.005-1.025) >= 1.030 H Urine Protein (Negative) mg/dL Negative Urine Ketones (Negative) mg/dL 15 H Urine Blood (Negative) Small H Urine Nitrite (Negative) Negative Urine Bilirubin (Negative) Negative Urine Urobilinogen (Up TO 0.2) EU/dL 0.2 Ur Leukocyte Esterase (Negative) Negative Urine Glucose (Negative) mg/dL Negative Urine Opiates Screen (Negative) Negative Urine Methadone Screen (Negative) Negative Ur Barbiturates Screen (Negative) Negative Ur Tricyclics Screen (Negative) Negative Ur Amphetamines Screen (Negative) Negative U Benzodiazepines Scrn (Negative) Positive A Urine Cocaine Screen (Negative) Negative Ur THC Screen (Negative) Negative COVID-19 Source Nasal/Nares SARS-CoV-2 (PCR) (Negative) Negative HPI General Mode of arrival: EMS. Date/Time Provider Initiated Documentation: 06/17/22 12:12. Limitations to Documentation: no limitations. Information obtained by: patient and EMS. HPI Narrative: This is a 42-year-old gentleman, past medical history of anxiety, bipolar type I disorder, depression, GERD, OCD, PTSD, presenting to the ER for worsening anxiety and depression with thoughts of self-harm, cutting or overdosing on medication. Reports symptoms have been worsening over the past couple of days, denies any obvious trigger. Was seen in the ER yesterday for the same and was able to be safety planned home, upon awakening this morning he stated his symptoms seem to be worse. Denies any self-harm today. Denies smoking cigarettes, alcohol use or drug abuse. Patient denies any acute medical concerns or complaints. He states that he feels as though he may require hospitalization for his ongoing and worsening depression and anxiety. Related Data Home Medications Medication Instructions Recorded Confirmed fluticasone propionate 50 1 spray intranasal DAILY 04/09/22 06/17/22 mcg/actuation nasal spray,suspension lactobacillus comb no.10 20 20 cell PO DAILY 04/09/22 06/17/22 billion cell capsule (Probiotic) omeprazole 40 mg capsule,delayed 40 mg PO DAILY 04/09/22 06/17/22 release acetaminophen 500 mg tablet 1,000 mg PO Q6H PRN 05/20/22 06/17/22 gabapentin 400 mg tablet 400 mg PO QHS 05/20/22 06/17/22 prazosin 1 mg capsule 4 mg PO QHS 05/20/22 06/17/22 buspirone 10 mg tablet 20 mg PO TID 06/17/22 06/17/22 clonazepam 0.5 mg tablet 1 mg PO TID 06/17/22 06/17/22 diphenhydramine HCl 50 mg capsule 50 mg PO QHS 06/17/22 06/17/22 trazodone 150 mg tablet 1 tab PO QHS 06/17/22 06/17/22 Allergies Allergy/AdvReac Type Severity Reaction Status Date / Time amoxicillin Allergy Unverified 06/17/22 12:06 Penicillins Allergy Unverified 06/17/22 12:06 Sulfa (Sulfonamide Allergy Unverified 06/17/22 12:06 Antibiotics) General Stated Complaint: PsychEval CHE: 2 Review of Systems Constitutional Constitutional: Denies fatigue, Denies fever(s) and Denies weakness Cardiovascular Cardiovascular: Denies chest pain and Denies dyspnea Respiratory Respiratory: Denies dyspnea Gastrointestinal Gastrointestinal: Denies abdominal pain, Denies nausea and Denies vomiting Musculoskeletal Musculoskeletal: Denies back pain Integumentary/Breasts Skin/Breast: Denies rash Neurologic Neurologic: Denies weakness Psychiatric Psychiatric: Reports anxiety, Reports depression, Denies homicidal ideation and Reports suicidal ideation Endocrine Endocrine: Denies fatigue PFSH All Active Problems Depression (Chronic) Suicidal thoughts (Acute) Medical History Anxiety Bipolar 1 disorder Depression GERD (gastroesophageal reflux disease) History of depression OCD (obsessive compulsive disorder) PTSD (post-traumatic stress disorder) Surgical History H/O lithotripsy S/P cholecystectomy Family History Uncle Bipolar 1 disorder Social History Smoking/Tobacco Use Status: Never Smoking risk assessment performed?: Yes Alcohol Intake: never Drug use: Never Substance use type: does not use Do you feel safe at home: Yes (SI/HI) Do you feel safe in your relationship?: Yes Additional Social history: Feels safe with friends but does not feel safe with self. Exam Const General: cooperative, healthy appearing, comfortable, no acute distress and anxious Orientation: alert, awake and oriented x3 HENMT Head: normal to inspection, normocephalic and atraumatic Face and sinus: normal facial exam Mouth: moist mucous membranes Throat: posterior oropharynx normal Eyes Conjunctivae: conjunctivae normal Neck Neck: normal visual inspection, full ROM, no meningeal signs, trachea midline, supple and nontender Resp Effort & Inspection: normal respiratory effort and able to speak in complete sentences Auscultation: clear to auscultation bilaterally Cardio Rate: regular rate Rhythm: regular rhythm GI Palpation: soft and nontender Back/Spine/Pelvis Back: No back tenderness Skin General skin exam: no rashes or lesions noted Neuro General: patient alert, patient awake, patient oriented x3, moves all extremities and no focal motor deficits Cognition: normal cognition Speech: speech normal Gait: normal gait Motor: muscle tone normal throughout Sensory Exam: no sensory deficits noted Extrem General: normal to inspection, full ROM and capillary refill normal Psych Appearance: grossly normal Mental Status: mental status grossly normal Speech and Movement: speech and movement normal Mood: anxious mood Affect: sad Attitude: cooperative Thought Process: normal Thought Content: suicidality Insight: fair Judgment: fair Course Vital Signs Vital signs: Vital Signs Temperature 37.0 C 06/17/22 12:04 Pulse 108 H 06/17/22 12:04 Respiratory Rate 18 06/17/22 12:04 Blood Pressure 101/55 L 06/17/22 12:04 Pulse Oximetry 99 06/17/22 12:04 Temperature 37.0 C 06/17/22 12:04 Temperature Source Temporal Artery Scan 06/17/22 12:04 Pulse 108 H 06/17/22 12:04 Respiratory Rate 18 06/17/22 12:04 Respiratory Effort Non-Labored 06/17/22 12:12 Blood Pressure 101/55 L 06/17/22 12:04 Blood Pressure Position Sitting 06/17/22 12:04 Pulse Oximetry 99 06/17/22 12:04 Oxygen Delivery Method Room Air 06/17/22 12:04 Oxygen Flow Rate 0 06/17/22 12:04
[2022-06-17 13:20] LABS: Source Nasal/Nares
[2022-06-17 13:58] LABS: COVID-19 PCR Negative (Negative)
--- NOTE | 2022-06-17 14:54 | PDOC.MHCN ---
Date of service: 06/17/22 Time of Service: 14:04 Mental Health Emergency Note Release NK release signed:: Yes Reason for Visit Client presented to the ED via [facility] transport due to fleeting thoughts of SI and increasing levels of anxiety. Client presented to [facility] the night prior on 06/16 for same chief complaint. Client was discharged home on proactive SP put into place by BRANDON Holt on 06/16. Client reports he was instructed to return to the ED if his thoughts of SI increased. Client reports when waking up this am his thoughts of SI and anxiety worsened since the night before. Client reports feeling helpless. In the last 2 weeks has the pt presented for ES prior to today?: Yes, presented at (Presented to [facility] EDon 06/16 for SI/ sereve anxiety, as mentioned above) Client Information Client is: Adult Outpatient (Client is actively engaged in Adult Emergency OP services through [facility]) Well Housed: Yes Non Suicidal Self Injury Current: Yes, Client reports thoughts of endorsing NSSIB's earlier this am, client reports experiencing fleeting thoughts of self-cutting with identified objects of scissors/knives. Client reports past hx. of NSSIB's. Client reported that he tried to put his hand through a window with the intention of using a broken shard to cut his wrist less than a year ago. This attempt was stopped by his uncle prior to him making contact with the glass. History: yes, refer to information provided above Safety Risk/Harm to Self or Others Current Ideation to Harm Self or Others: Yes to self. (Client reports currently endorsing SI. Client reports multiple plans to this publicity writer (intetional oversdose of all prescribed rxs in his possession, or jumping in river with hopes of hypothermia). Client plans were not able to be disabled at this time. Client rated self 9/10 for level of intent. ) Intent: yes, has intent. Plan: yes,has a plan. History of suicide attempt: yes,history of suicide attempt reported. Details of previous suicide attempt: details of client's previous suicide attempts are unknown to this publicity writer Risk: Does risk to harm exist?: yes. Access to means: Yes. Types of Means: Other (Sharps such as sissors/knives). Risk: Moderate Risk (Client's level of intent is high, self rated of 9/10 of how likely he would be to act on thoughts of SI, if leaving ED today. However, client is currently in ED in a controlled setting.) Duty to warn indicated: No Asssessment/Mental Status Appearance: Disheveled Attitude: Cooperative Behavior: Unremarkable Speech: Slow Affect: Flat and Cogruent with mood Mood: Sad, Depressed and Anxious Thought process: Unremarkable Hallucinations: No evidence Delusions: No evidence Attention: Poor concentration Perception: Not impaired Orientation: Fully orientated Memory: Intact Insight: Fair Judgement: Fair Neurovegetative Symptoms Sleep: Decrease (Client reports difficulity falling asleep. Client reports waking up multiple times throughout the night. Client reports typically getting 6 hrs of interupted sleep per night.) Appetitie: Decrease (Client reports decrease in appetitie. Client reports losing a total of 15 pounds in the last three weeks. Client contributes difficutlites eating to increase in anxiety. Client reports prior to arriving to the ED and eating, the last time he ate something was at 4:30 pm the day prior. ) Interests: Decrease Energy: Decrease Libido: Not applicable Impression Client is a 42 y.o. male. Client is known to [facility]. Client reports he currently resides with his best friend Phi and his girlfriend , who he identified as natural supports. As mentioned above, client presented to [facility] last evening on 06/16 for SI/ heightened levels of anxiety. Client was discharged on proactive SP. Client reports when he awoke this am, his anxiety levels increased from the night prior when he presented to the ED. Client reports he found himself scanning the room for objects he could harm himself with, with the intention to . Client reports in attempt to deflect his thoughts, he removed himself from his bedroom and listened to calming music and consulted with his natural supports. Client reports even after these attempts, client reports then experiencing thoughts of taking all of his prescribed medications at once with the intention to end his life. Client reports currently endorsing SI/NSSIB's. Client denies currently endorsing HI. On a self rated scale from 0-10, client rated himself a 9 for how likely he would be to act on his thoughts of harming himself if leaving the ED today. Client reports for the past three weeks having difficulties completing his ADL's. Client reports difficulties eating/drinking. Client contributes these difficulties to his anxiety. Client reports recently everything is a stressor. Client reports lately, all I feel I can do is sit on the couch. Client reports, suffering all the time. Client reports dreading waking up in the am due to feeling hopeless to take on the day. Plan/Disposition Recommended Disposition: Hospitalization (IP tx) facilities contacted. Plan: The client will remain at [facility] on voluntary status and await recommended in-patient treatment for medication management and to ensure safety based on presenting symptoms (SI, depression and anxiety). He will be assessed daily by [facility] until placement is secured. If acuity level decreases or if the client feels as though his medication changes can be safely managed on an outpatient basis with additional support, a safety plan back to the community can be considered pending discretion of screener and [facility] medical provider.? Person reported agreement to plan: Yes Reports/communication Outcome discussed with: ED/Personnel (YAMILE Parks)
--- NOTE | 2022-06-17 15:05 | PDOC.CMSAFED ---
- If Service Date Differs Date of service: 06/17/22 Time of Service: 15:05 Care Management Safety Plan Status: Voluntary - Reason for Wait Reason for Wait: Inpatient Admission VOLUNTARY FOR INPATIENT PSYCHIATRIC STABILIZATION. Patient is appropriate in all interactions since arriving at [facility]; Pt has demonstrated appropriate coping and communication skills, has articulated his or her needs and concerns and is fully engaged during staff interactions. Safety plan has been established with patient, and care team, to adhere to patient goals, identify restrictions based on behavioral status, address nutrition, and determine allowed personal belongings, tools for hygiene and personal care. Determine level of activity including ambulation, level of supervision, visitors, and determine privileges based on behaviors and level of engagement by pt. SAFETY PLAN: 1. Will remain on suicide precautions. In Paper Clothes 2. Will remain in room under direct supervision of one-on-one staff at all times provided by CPSO; ROSARIO, UPP[employer]ER skill training program coordinator. 3. May have paper cups, plates, finger foods as well as a cardboard spoon with which to eat meals. 4. Follow [facility] Management of the Admitted Behavioral Health Patient policy. 5. Comfort bath system only, shower permitted with escort at RN discretion. 6. No personal belongings-soft items permitted at RN discretion. 7. Visitors-none at this time. 8. Activities: soft cart items approved per RN discretion. 9. Bathroom privileges with escort in the ED, available in room without limitation on M/S. 10. Phone: contact limited to family at this time, via cordless phone at RN discretion. 11. Due to VOLUNTARY status, if patient wishes to leave [facility], staff will contact [facility] Crisis Screener ([phone]) and On-Call Kil[facility]man ([phone]) as soon as possible. In the event of elopement, notify [place] [employer] ([phone]). Patient is currently voluntarily at [facility] and seeking inpatient admission when a bed becomes available. [facility] Frontline Corporate Compliance Director will continue seeking placement. Please contact the Electrical Technician Kilnman ([phone]) and [facility] Corporate Compliance Director ([phone]) for any needed changes in the Safety Plan. Safety plan has been provided to interdepartmental care team.
[2022-06-17 15:08] LABS: Bilirubin Negative (Negative); Blood Small (Negative); Clarity Clear (Clear); Glucose Negative (Negative); Ketones 15 mg/dL (Negative); Leukocyte Esterase Negative (Negative); Nitrite Negative (Negative); Specific Gravity >= 1.030 (1.005-1.025); Urobilinogen 0.2 EU/dL (Up TO 0.2)
[2022-06-17 15:18] VITALS: BP 116/72; PULSE 83; RESP 16; TEMP 36.9; O2SAT 98
[2022-06-17 15:20] LABS: *AMPHETAMINES SCREEN URINE Negative (Negative); *BARBITURATES SCREEN URINE Negative (Negative); *BENZODIAZEPINES SCREEN URINE Positive (Negative); Cannabinoids THC Negative (Negative); Cocaine Screen,Urine Negative (Negative); METHADONE URINE SCREEN Negative (Negative); OPIATES URINE SCREEN Negative (Negative); Tricyclic Antidepressants Negative (Negative)
[2022-06-17 15:24] LABS: Bacteria Negative HPF (Negative); C & S Indicated? No; Casts Negative LPF (Negative); Crystals Negative HPF (Negative); Epithelial Cells Few HPF (Negative); Mucus Trace (Negative)
[2022-06-17] MEDS: clonazePAM 0.5 MG TAB 1 MG PO (17:07)
--- NOTE | 2022-06-17 17:11 | NUR.NOTE ---
Nursing Note: At the request of [facility] the facesheet, insurance information, labs were faxed to their facility.
[2022-06-17] MEDS: diphenhydrAMINE 25 MG CAP 50 MG PO (22:02)
[2022-06-17] MEDS: busPIRone 5 MG TAB 20 MG PO (22:03)
[2022-06-17] MEDS: traZODone 100 MG TAB 150 MG PO (22:03)
[2022-06-17] MEDS: clonazePAM 1 MG TAB PO (22:46)
[2022-06-17] MEDS: Prazosin 1 MG CAP 4 MG PO (22:47)
--- NOTE | 2022-06-17 22:48 | W.EDPROG ---
Date of service: 06/17/22 Time of Service: 22:49 Medical Decision Making Care was accepted in transition from Rohan Parks 1600 pending voluntary mental health placement Patient has been calm and cooperative throughout the entirety of the shift, he has asked for his prescribed medications which were supplied bed status was reassessed at 2230 and pt will be admitted pending voluntary MH placement Dr Atkins to admit pt Sign Out Sign Out Data: Sign Out Comment: Worsening depression with SI. Patient has been medically cleared and mental health evaluation completed. Patient is a voluntary placement and will be held in the ER until placement is found. Last updated by Rohan Parks PA at 06/17/22 15:28 Discharge Plan Discharge Details Chief Complaint: PsychEval Primary Care Provider: Karolyn Rainey ED Provider: Yamila Wisdom Home Meds and New Rx's Prescriptions: No Action acetaminophen 500 mg tablet 1,000 mg PO Q6H PRN gabapentin 400 mg tablet 400 mg PO QHS prazosin 1 mg capsule 4 mg PO QHS Label Comments: Take 1 capsule by mouth at bedtime fluticasone propionate 50 mcg/actuation spray,suspension 1 spray INTRANASAL DAILY Label Comments: SPRAY 1 SPRAY INTO BOTH NOSTRILS TWICE A DAY Probiotic 20 billion cell Capsule 20 cell PO DAILY omeprazole 40 mg Capsule,Delayed Release(Dr/Ec) 40 mg PO DAILY diphenhydramine HCl [Benadryl] 50 mg Capsule 50 mg PO QHS clonazepam 0.5 mg tablet 1 mg PO TID Label Comments: Take 1 tablet by mouth every eight hours as needed trazodone 150 mg tablet 1 tab PO QHS Label Comments: TAKE ONE TABLET BY MOUTH AT BEDTIME buspirone 10 mg tablet 20 mg PO TID Label Comments: TAKE TWO TABLETS BY MOUTH THREE TIMES A DAY
--- NOTE | 2022-06-18 00:08 | HPE_ITS ---
Date of service: 06/17/22 Time of Service: 23:30 Assessment and Plan Assessment and plan (1) Suicidal thoughts: Start date: 06/17/22 Status: Acute Assessment and plan: This is a 42-year-old gentleman with increasing suicidal ideation being hospitalized voluntarily for psychiatric placement. He is not eating and drinking well and has concentrated urine with a slightly increased creatinine and will be encouraged to at least drink clear fluids with a regular diet. We should avoid IVs with patient not able to chronically be IV hydrated and this will be a problem in the psychiatric hospital as well. He does need work on his poor dentition with some tooth pain but no obvious infection. Many of the teeth are exposed from wearing down almost [facility] on the shafts. He is underweight and this may be partially because of his poor dentition. Patient is a Full Code. (2) Depression: Status: Chronic Assessment and plan: Continue outpatient medical therapy with adjustment as needed. (3) Chronic right hip pain: Status: Chronic Assessment and plan: Patient should have lidocaine patches and will be given naproxen twice daily as needed for chronic right hip pain from probable misuse and appears to be more of a trochanteric bursitis. Imaging is not indicated with no recent injury. History of Present Illness History of Present Illness Chief Complaint: Depressed mood with anxiety and suicidal ideation Narrative: This is a 42-year-old male patient who has recurrent admissions for suicidal ideation who presents to the ED the day of admission with worsening depression and suicidal ideation. He was medically cleared and mental health did evaluate the patient wanting to admit him involuntarily until placement could be found for inpatient psychiatric care. Patient was complained of right hip discomfort which is recurrent and occurs because of his hiking recently though he was vague about what activity was actually undertaken. He also complains of his teeth always hurting decreasing his intake with the patient losing weight and not able to hydrate well. Certain temperatures do bother his teeth more and they are severely bruxed with cavities and some missing. He has had no fever. He has chawla d no other GI complaints. He is a full code. Review of Systems Narrative: 13 point review of systems otherwise unrevealing or stable. PFSH All Active Problems (Updated 06/18/22 @ 07:41 by Peter Lopes) Chronic right hip pain (Chronic) Depression (Chronic) Suicidal thoughts (Acute) Medical History Anxiety Bipolar 1 disorder Depression GERD (gastroesophageal reflux disease) History of depression OCD (obsessive compulsive disorder) PTSD (post-traumatic stress disorder) Surgical History H/O lithotripsy S/P cholecystectomy Family History Uncle Bipolar 1 disorder Social History Smoking/Tobacco Use Status: Never Smoking risk assessment performed?: Yes Alcohol Intake: never Drug use: Never Substance use type: does not use Do you feel safe at home: Yes (SI/HI) Do you feel safe in your relationship?: Yes Additional Social history: Feels safe with friends but does not feel safe with self. Meds Allergies and Home Medications Allergies Allergy/AdvReac Type Severity Reaction Status Date / Time amoxicillin Allergy Unverified 06/17/22 12:06 Penicillins Allergy Unverified 06/17/22 12:06 Sulfa (Sulfonamide Allergy Unverified 06/17/22 12:06 Antibiotics) Home Medications Medication Instructions Recorded Confirmed Type fluticasone propionate 50 1 spray intranasal DAILY 04/09/22 06/17/22 History mcg/actuation nasal spray,suspension lactobacillus comb no.10 20 20 cell PO DAILY 04/09/22 06/17/22 History billion cell capsule (Probiotic) omeprazole 40 mg capsule,delayed 40 mg PO DAILY 04/09/22 06/17/22 History release acetaminophen 500 mg tablet 1,000 mg PO Q6H PRN 05/20/22 06/17/22 History gabapentin 400 mg tablet 400 mg PO QHS 05/20/22 06/17/22 History prazosin 1 mg capsule 4 mg PO QHS 05/20/22 06/17/22 History buspirone 10 mg tablet 20 mg PO TID 06/17/22 06/17/22 History clonazepam 0.5 mg tablet 1 mg PO TID 06/17/22 06/17/22 History diphenhydramine HCl 50 mg capsule 50 mg PO QHS 06/17/22 06/17/22 History trazodone 150 mg tablet 1 tab PO QHS 06/17/22 06/17/22 History Exam Narrative Exam Narrative: General: Patient is appropriate for age, alert and oriented at least to person and place and questionably time. He is in moderate distress being anxious with pressured speech. Intense eye contact with anxious affect. HEENT: Normocephalic, eyes with pupils equal and reactive to light symmetrically, extraocular movement tact and sclera anicteric. Oropharynx with dry mucosa and poor dentition having severe bruxing of teeth [facility] down with carious teeth and erythematous slight hypertrophied gingiva without overt exudate. Neck: Supple without JVD. Back: Normal posture without CVA tenderness. Lungs: Clear to auscultation and percussion with good aeration. Heart: Regular rate and rhythm with no murmur or gallop appreciated. Abdomen: Scaphoid contour, soft and nontender to palpation with no palpable hepatosplenomegaly. Bowel sounds normal in all quadrants. Genitalia/rectal: Exam deferred. Extremities: Without clubbing, cyanosis or pitting edema. Right hip is slightly tender over the superior trochanteric area without effusion or bruising. There is some slight muscle atrophy. Peripheral pulses are intact. Skin: Slightly pale, warm and dry. No rashes noted. Neuro: Cranial nerves II through XII gross intact, no focalizing motor deficits and no tremor. Patient does have continuous movement in bed which appears somewhat involuntary but not focal. Psych: Anxious with continuous movement in bed and intense eye contact with anxious affect. Mood appears depressed. No abnormal thought processes manifested. Remote and recent memory appear to be grossly intact though patient wanders in conversation. He jumps from topic to topic. Results Labs Result diagrams: 06/18/22 06:45 Labs: Laboratory Results - last 24 hr 06/17/22 06/17/22 06/17/22 13:00 14:46 14:46 Urine Color Yellow Urine Clarity Clear Urine pH 6.0 Ur Specific [place] >= 1.030 H Urine Protein Negative Urine Ketones 15 H Urine Blood Small H Urine Nitrite Negative Urine Bilirubin Negative Urine Urobilinogen 0.2 Ur Leukocyte Esterase Negative Urine RBC 10-20 H Urine WBC 3-5 Ur Epithelial Cells Few Urine Crystals Negative Urine Bacteria Negative Urine Casts Negative Urine Mucus Trace Ur Culture Indicated? No Urine Glucose Negative Urine Opiates Screen Negative Urine Methadone Screen Negative Ur Barbiturates Screen Negative Ur Tricyclics Screen Negative Ur Amphetamines Screen Negative U Benzodiazepines Scrn Positive A Urine Cocaine Screen Negative Ur THC Screen Negative COVID-19 Source Nasal/Nares SARS-CoV-2 (PCR) Negative Last Vital Signs Temp 36.9 C 06/17/22 15:18 Pulse 83 06/17/22 15:18 Resp 16 06/17/22 15:18 BP 116/72 06/17/22 15:18 Pulse Ox 98 06/17/22 15:18
[2022-06-18 00:40] VITALS: BP 111/70; PULSE 51; RESP 18; TEMP 36.4; O2SAT 97
[2022-06-18] MEDS: Gabapentin 100 MG CAP 400 MG PO (01:10)
[2022-06-18] MEDS: Acetaminophen 325 MG TAB PO ×2 (01:11→11:39)
[2022-06-18 02:36] VITALS: PULSE 71
[2022-06-18 06:59] LABS: Anion Gap 5.2 mmol/L (3-11); BUN 21 mg/dL (7-18); CO2 29.8 mmol/L (21.0-32.0); CREATININE 1.4 mg/dL (0.70-1.30); Calcium 9.2 mg/dL (8.5-10.1); Chloride 103 mmol/L (98-107); Estimated GFR 64.36 (mL/min/1.73m2); Glucose 87 mg/dL (74-106); Potassium 3.7 mmol/L (3.5-5.1); Sodium 138 mmol/L (136-145)
--- NOTE | 2022-06-18 08:20 | PDOC.CMSAFE ---
- If Service Date Differs Date of service: 06/18/22 Time of Service: 08:20 Care Management Safety Plan Status: Voluntary - Reason for Wait Reason for Wait: Inpatient Admission VOLUNTARY FOR INPATIENT PSYCHIATRIC STABILIZATION. Patient is appropriate in all interactions since arriving at [facility]; Pt has demonstrated appropriate coping and communication skills, has articulated his or her needs and concerns and is fully engaged during staff interactions. Safety plan has been established with patient, and care team, to adhere to patient goals, identify restrictions based on behavioral status, address nutrition, and determine allowed personal belongings, tools for hygiene and personal care. Determine level of activity including ambulation, level of supervision, visitors, and determine privileges based on behaviors and level of engagement by pt. SAFETY PLAN: 1. Will remain on suicide precautions. In Paper Clothes 2. Will remain in room under direct supervision of one-on-one staff at all times provided by [employer]; ROSARIO, GANG VIBRATOR OPERATOR rotary derrick operator. 3. May have paper cups, plates, finger foods as well as a cardboard spoon with which to eat meals. 4. Follow [facility] Management of the Admitted Behavioral Health Patient policy. 5. Comfort bath system only, shower permitted with escort at RN discretion. 6. No personal belongings-soft items permitted at RN discretion. 7. Visitors-none at this time. 8. Activities: soft cart items approved per RN discretion. May watch TV at nursing discretion. 9. Bathroom privileges with escort in the ED, available in room without limitation on M/S. 10. Phone: contact limited to family at this time, via cordless phone at RN discretion. 11. Due to VOLUNTARY status, if patient wishes to leave [facility], staff will contact [facility] Crisis Screener ([phone]) and [facility] Hospital Medicine Director ([phone]) as soon as possible. In the event of elopement, notify [place] [employer] ([phone]). Patient is currently voluntarily at [facility] and seeking inpatient admission when a bed becomes available. [facility] Frontline Fish Hatchery Supervisor will continue seeking placement. Please contact the [facility] Medicine Director ([phone]) and [facility] Fish Hatchery Supervisor ([phone]) for any needed changes in the Safety Plan. Safety plan has been provided to interdepartmental care team.
--- NOTE | 2022-06-18 08:21 | PDOC.CMPRO ---
- If Service Date Differs Date of service: 06/18/22 Time of Service: 08:21 Care Management Progress Note S/O: A; darien is a 42 year old man awho was admitted on 06/17/22 with SI and depression P: Darien is awaiting voluntary placement for psychiatric stabilization
[2022-06-18 09:05] VITALS: BP 107/74; PULSE 56; RESP 20; TEMP 36.5; O2SAT 96
[2022-06-18] MEDS: Omeprazole 20 MG CAPCR 40 MG PO (09:11)
[2022-06-18] MEDS: clonazePAM 0.5 MG TAB 1 MG PO ×2 (09:11→13:32)
[2022-06-18] MEDS: busPIRone 5 MG TAB 20 MG PO ×2 (09:11→13:32)
[2022-06-18] MEDS: Lidocaine 5% Patch 1 PATCH TP (09:11)
[2022-06-18] MEDS: Lactobacillus Acidophilus CAP 1 CAP PO (09:12)
--- NOTE | 2022-06-18 10:44 | PDOC.MHPN2 ---
Date of service: 06/18/22 Time of Service: 10:30 PHQ-9 Over the last 2 weeks, how often have you been bothered by any of the following problems? 1. Little interest or pleasure in doing things: nearly every day 2. Feeling down, depressed, or hopeless: nearly every day 3. Trouble falling or staying asleep, or sleeping too much: nearly every day 4. Feeling tired or having little energy: nearly every day 5. Poor appetite or overeating: nearly every day 6. Feeling bad about yourself - or that you are a failure or have let yourself and your family down: nearly every day 7. Trouble concentrating on things, such as reading the newspaper or watching television: more than half the days 8. Moving or speaking so slowly that other people could have noticed? - Or the opposite - being so fidgety or restless that you have been moving around a lot more than usual: nearly every day 9. Thoughts that you would be better off or of hurting yourself in some way: several days Total score: 24 If you checked off any problems, how difficult have these problems made it for you to do your work, take care of things at home, or get along with other people?: extremely difficult Source: Developed by Drs. Jeremy Scott, Jillian Rosenthal, Kevin Blulock and colleagues, with an educational nile from [employer]. Suicide Severity Rate CSSRS Have you wished you were or wished you could go to sleep and not wake up?: Yes Have you actually had any thoughts of killing yourself?: Yes CSSRS2 Have you been thinking about how you might do this?: Yes Have you had these thoughts and had some intention of acting on them?: No Have you started to work out or worked out the details of how to kill yourself? Do you intend to carry out this plan?: No CSSRS3 Have you ever done anything, started to do anything or prepared to do anything to end your life?: Yes CSSRS4 Was this within the past three months?: Yes Screening Score Total Score: 8 Screening: Positive Mental Health Emergency Note Release [facility] release signed:: No Reason for Visit Ct presented to the ED voluntarily on 06/17 after being safety planned home earlier. In the last 2 weeks has the pt presented for ES prior to today?: Yes, presented at [facility] ED Client Information Well Housed: Yes Non Suicidal Self Injury Current: No History: No Safety Risk/Harm to Self or Others Current Ideation to Harm Self or Others: Yes to self. Intent: yes, has intent. Plan: no.does not have a plan. Risk: Does risk to harm exist?: yes. Access to means: No. Risk: Moderate Risk Duty to warn indicated: No Asssessment/Mental Status Appearance: Disheveled Attitude: Cooperative Behavior: Unremarkable Speech: Pressured Affect: Flat and Cogruent with mood Mood: Sad, Stressed, Depressed and Anxious Thought process: Unremarkable Hallucinations: No Delusions: No Attention: Unremarkable Perception: Not impaired Orientation: Fully orientated Memory: Intact Insight: Fair Judgement: Good Neurovegetative Symptoms Sleep: Decrease Appetitie: Disordered Interests: No change Energy: Decrease Substance Use: Do you use nicotine?: No Have you used substances in the last 7 days?: No Additional Issues: Assaultive/Threatening Behavior: No Medical Concerns: No Client engaged in active self harm w/weapon: No Threatening to run away: No Child reported abuse/neglect: No Voluntarily presenting for services: No Domestic violence is a concern: No Extreme Psychosis or extreme behavior is present: No Impression This ct is oriented x3, shows good judgment around his physical and mental health. Client reported he is actively suicidal but has been able to distract/redirect himself, as well as feeling safe in his current environment. Client has poor sleep patterns, stated he was only able to sleep for about 4 hours last night[address] ct has been struggling with his appetite, reported losing a significant amount of weight over the past two weeks. Client is struggling with anxiety and coping with it. Resources [facility] reviewed and given:: [facility] Plan/Disposition Recommended Disposition: Hospitalization facilities contacted. Plan: Client will continue to wait at [facility] until placement is secured. Person reported agreement to plan: Yes Facilities contacted if Applicable [facility] (Per staff, no planned discharges this weekend.) Accepted, Pending review. Information Sent to [place]: Referral [facility] Accepted, (Per staff, no planned discharges.) Pending review. Information Sent to [facility]: Referral [facility] Accepted, Other (Unable to reach [facility]). Information Sent to [place]: Referral, [facility] (Per staff: WC is full with no planned discharges at this time.) Accepted, Pending review. Information Sent to [place]: Referral Reports/communication Outcome discussed with: Other (YOLANDA Remy) Final Disposition/Discharge Final accepting facility/transferred to: Other ([facility]) Transportation Checklist completed and faxed: No Transport level: Other ([facility])
--- NOTE | 2022-06-18 11:10 | NUR.NOTE ---
Nursing Note: At approximately 1110 on 06/18/22, this RN received a call from Della (nurse at [facility]) requesting that any lab results be faxed to them. RN informed Della that they would have the assembler unit do so. Della also stated that the providers were speaking and that she would be calling back for a nurse to nurse report in a little while.
--- NOTE | 2022-06-18 12:25 | NUR.NOTE ---
Nursing Note: At approximately 1220 on 06/18/22, this RN answered a phone call from Della (nurse) at [facility]. This RN gave a nurse to nurse report regarding pt.'s mentation, VS, pain level and pain management techniques, head to toe assessment, suicide risk assessment, plan of care, medications received, etc. Della verbalized understanding and presented with a few questions that were answered. Della requesting that the MAR be faxed to [facility] ahead of the pt. arriving. This RN informed Della that they would have the unit assistant do so. Della also stating that [facility] can start arranging transport to transfer pt. from [facility] to [facility]. Charge nurse and care management notified.
--- NOTE | 2022-06-18 12:41 | DSE_ITS ---
Date of service: 06/18/22 Time of Service: 12:41 DS: Diagnosis Discharge Diagnosis (1) Suicidal thoughts: Status: Acute (2) Depression: Status: Chronic (3) Chronic right hip pain: Status: Chronic Discharge Plan Disposition Patient Disposition: Psychiatric Hospital/Unit Specific Psychiatric Facility: [facility] Condition: Stable Discharge Details Reason For Visit: Suicidal Ideation, Depression with Anxiety Admit Date/Time: 06/17/22 22:44 Admit Provider: Peter Lopes Attending Provider: Peter Lopes Primary Care Provider: Karolyn Rainey [facility] Course Hospital Course: This is a 42-year-old male patient who has recurrent admissions for suicidal ideation who presented to the ED with worsening depression and suicidal ideation.? He was medically cleared and mental health did evaluate the patient wanting to admit him involuntarily until placement could be found for inpatient psychiatric care.? Of note he complains of chronic right hip discomfort and his teeth always hurting, which leads to decreased intake with the patient losing weight and not able to hydrate well.? He was given 1 liter of IV saline and has been tolerating fluids fine with no evidence of dehydration. He has been taking acetaminophen and naproxen for his pain. He has remained medically stable and eating and drinking well. He has had no behavioral issues. a bed has been secured at [facility] and transport by [facility]. discharge discussed with Dr Gonzales? Home Meds and New Rx's Prescriptions: Continued acetaminophen 500 mg tablet 1,000 mg PO Q6H PRN gabapentin 400 mg tablet 400 mg PO QHS prazosin 1 mg capsule 4 mg PO QHS Label Comments: Take 1 capsule by mouth at bedtime fluticasone propionate 50 mcg/actuation spray,suspension 1 spray INTRANASAL DAILY Label Comments: SPRAY 1 SPRAY INTO BOTH NOSTRILS TWICE A DAY Probiotic 20 billion cell Capsule 20 cell PO DAILY omeprazole 40 mg Capsule,Delayed Release(Dr/Ec) 40 mg PO DAILY diphenhydramine HCl 50 mg Capsule 50 mg PO QHS clonazepam 0.5 mg tablet 1 mg PO TID Label Comments: Take 1 tablet by mouth every eight hours as needed trazodone 150 mg tablet 1 tab PO QHS Label Comments: TAKE ONE TABLET BY MOUTH AT BEDTIME buspirone 10 mg tablet 20 mg PO TID Label Comments: TAKE TWO TABLETS BY MOUTH THREE TIMES A DAY Discharge Instructions Instructions: Suicide Prevention (DC) Stand Alone Forms: Nursing Discharge Form Referrals: Karolyn Rainey [Primary Care Provider] - Activity:: Activity as Tolerated Equipment/Supplies:: No Equipment Needed Diet:: As Tolerated Discharge Orders Discharge Orders: Discharge Order (Routine); Ordered 06/18/22 Ordered By: Concepcion Rubio DS: Summary Time Spent with Patient providing and/or coordinating discharge services: Less than 30 minutes Status at Discharge Functional status at discharge: independent ambulation Overall status at discharge: patient is not back to baseline Mental Status: mental status grossly normal and other (cooperative) Speech and Movement: speech and movement normal Mood: other (cooperative) Affect: anxious affect Exam Const General: cooperative and comfortable Nutritional Appearance: average body habitus Orientation: alert, awake and oriented x3 Psych Mental Status: mental status grossly normal and other (cooperative) Speech and Movement: speech and movement normal Mood: other (cooperative) Affect: anxious affect DS: Data Vitals/I&O Vitals and I&O: Vital Signs Temperature 36.5 C 06/18/22 09:05 Temperature Source Tympanic 06/18/22 09:05 Pulse 56 L 06/18/22 09:05 Respiratory Rate 20 06/18/22 09:05 Respiratory Effort Non-Labored 06/18/22 09:10 Respiratory Depth Normal 06/18/22 09:10 Respiratory Pattern Normal 06/18/22 09:10 Blood Pressure 107/74 06/18/22 09:05 Blood Pressure Position Sitting 06/17/22 12:04 Pulse Oximetry 96 06/18/22 09:05 Oxygen Delivery Method Room Air 06/18/22 09:05 Oxygen Flow Rate 0 06/18/22 09:05 Pain Level 4 06/18/22 11:39 Comment 06/18/22 06:55 Intake & Output 06/17/22 06/18/22 06/18/22 23:59 11:59 23:59 Intake Total 480 / 480 Balance 480 / 480 Weight 72.575 kg Intake: Oral 480 / 480 Other: Urine Color Yellow Urine Appearance Clear Comment x1 unkown void at this time. pt urinated at toilet. despite pts dehydration, his urine is not randee in color. its actually light yellow. Data Completed and Pending Labs on day of discharge: Labs from last 24 hours 06/18/22 06/17/22 06/17/22 06:45 14:46 14:46 Sodium 138 Potassium 3.7 Chloride 103 Carbon Dioxide 29.8 Anion Gap 5.2 BUN 21 H Creatinine 1.4 H Est GFR (CKD-EPI 2020) 64.36 Glucose 87 Calcium 9.2 Urine Color Yellow Urine Clarity Clear Urine pH 6.0 Ur Specific [place] >= 1.030 H Urine Protein Negative Urine Ketones 15 H Urine Blood Small H Urine Nitrite Negative Urine Bilirubin Negative Urine Urobilinogen 0.2 Ur Leukocyte Esterase Negative Urine RBC 10-20 H Urine WBC 3-5 Ur Epithelial Cells Few Urine Crystals Negative Urine Bacteria Negative Urine Casts Negative Urine Mucus Trace Ur Culture Indicated? No Urine Glucose Negative Urine Opiates Screen Negative Urine Methadone Screen Negative Ur Barbiturates Screen Negative Ur Tricyclics Screen Negative Ur Amphetamines Screen Negative U Benzodiazepines Scrn Positive A Urine Cocaine Screen Negative Ur THC Screen Negative COVID-19 Source SARS-CoV-2 (PCR) 06/17/22 13:00 Sodium Potassium Chloride Carbon Dioxide Anion Gap BUN Creatinine Est GFR (CKD-EPI 2020) Glucose Calcium Urine Color Urine Clarity Urine pH Ur Specific [place] Urine Protein Urine Ketones Urine Blood Urine Nitrite Urine Bilirubin Urine Urobilinogen Ur Leukocyte Esterase Urine RBC Urine WBC Ur Epithelial Cells Urine Crystals Urine Bacteria Urine Casts Urine Mucus Ur Culture Indicated? Urine Glucose Urine Opiates Screen Urine Methadone Screen Ur Barbiturates Screen Ur Tricyclics Screen Ur Amphetamines Screen U Benzodiazepines Scrn Urine Cocaine Screen Ur THC Screen COVID-19 Source Nasal/Nares SARS-CoV-2 (PCR) Negative PFSH All Active Problems (Updated 06/18/22 @ 07:41 by Peter Lopes) Chronic right hip pain (Chronic) Depression (Chronic) Suicidal thoughts (Acute) Medical History Anxiety Bipolar 1 disorder Depression GERD (gastroesophageal reflux disease) History of depression OCD (obsessive compulsive disorder) PTSD (post-traumatic stress disorder) Surgical History H/O lithotripsy S/P cholecystectomy Family History Uncle Bipolar 1 disorder Social History Smoking/Tobacco Use Status: Never Smoking risk assessment performed?: Yes Alcohol Intake: never Drug use: Never Substance use type: does not use Do you feel safe at home: Yes (SI/HI) Do you feel safe in your relationship?: Yes Additional Social history: Feels safe with friends but does not feel safe with self.
--- NOTE | 2022-06-18 13:44 | CMDISCH_ITS ---
- If Service Date Differs Date of service: 06/18/22 Time of Service: 13:44 Care Management Discharge Reason for Hospitalization: SI and depression Discharge Plan: darien will be transferred to [facility] for psychiatric stabilization and will be transported by [facility] coordinated by CM. Patient/Family Education Needs: expectations and plan of care - MH Services (Omit if N/A) Current MH Services: [facility] - Disposition Disposition: [facility] via : [facility]
== END 2022-06-18 13:35 ==
LOC: ER 16:22 → MS 23:53
PROVIDERS: Physician Assistant; Admitting Provider Family Medicine; Emergency Provider Physician Assistant; PCP Nurse Practitioner Family; Visit Provider Family Medicine
DX: R45.851 Suicidal ideations (principal); F31.9 Bipolar disorder, unspecified; M25.551 Pain in right hip; G89.29 Other chronic pain; Z20.822 Contact with and (suspected) exposure to COVID-19; F41.9 Anxiety disorder, unspecified; K21.9 Gastro-esophageal reflux disease without esophagitis; F43.10 Post-traumatic stress disorder, unspecified; F42.9 Obsessive-compulsive disorder, unspecified; Z79.899 Other long term (current) drug therapy
CPT/HCPCS: 36415; 80048; 80307; 87635; 99285; 81003; 81015; 99217; 99219

== ENCOUNTER 2022-07-19 14:44 | Outpatient (REF) | payer MEDICARE, SELFPAY ==
--- OUTSIDE RECORDS SUMMARY | 2022-07-19 14:50 | XMS_ITS | Continuity of Care Document ---
:1980 Author Organization [facility] Address [address] [place] [address] Phone Care Team Providers Name Role Phone Unavailable Unavailable Unavailable Procedures Procedure Date [facility] Advance Directives Directive Yes / No Effective Date File Name No Information Encounters Encounter Practice Location Reason(s) Diagnoses Date Provider Provide rs Description For Visit Copied on Encounter [facility] No Information Sep-2 No [facility], [address], [place], [id number], tel:[phone] [facility] Schizophrenia Sep-2 No [facility], [address], [place], [place], [id number], [place] tel:[phone] [facility] Psychosis Sep-2 No [facility], [address], [place], [place], [address], tel:[phone] Family History Family Member Type Diagnosis Age At Onset No Information Payers Payer name Insurance type Covered libertarian ID Authorization(s ) No Information Social History Type Description Quantity Date Captured Comments Alcohol Use Details Unknown Caffeine Use Details Unknown Tobacco Use Status No Information Smoking Status No Information Sex Male Chief Complaint And Reason For Visit No Information Reason For Referral Reason For Referral No Information Plan Of Treatment Date Type Action Status No Information History Of Present Illness Encounter Date Complaint History Of Present I llness No Information Functional Status Date Functional Assessment No Information Instructions Date Instruction Additional Informati on {local.[email or web address]_plan} {local.txt_patient_plan} Related to Psyc hosis Assessments Type Assessment Date assessment Psychosis assessment Schizophrenia impression {local.txt_impression} Patient Care Teams Name Effective Dates (start - stop) Status M embers No Information
--- OUTSIDE RECORDS SUMMARY | 2022-07-19 14:50 | XMS_ITS | CCD ---
:1980 Author Care Team Providers Name Role Phone CHANO CAMPBELL JR Attending Physician Unavailable CHANO CAMPBELL JR Er Physician 1 Unavailable Vital Signs Unknown or Not Available. Allergies Unknown or Not Available. Procedures Unknown or Not Available. History of Immunizations Unknown or Not Available. Problems Problem Code Start Date Resolved Date Status Renal stone 10630112 03/28/2019 Active Right upper quadrant pain 822433308 01/01/2016 Ac tive Disorder of gallbladder 64697201 01/01/2016 Acti ve Bipolar disorder 66587137 Active Hypothyroidism 59577761 Active Depression 59208168 Active Calculus of kidney 32070741 07/07/2015 01/02/2016 Resolved Results Active Medications Medication Code Dose Units Frequency Route Modification Start Date/Time Benztropine 623684 1 MILLIGRAMS TWICE A DAY ORAL 03/29 Mesylate 1MG 13:00 Oral Tablet Prescription Detail TAKE 1 MILLIGRAMS ORAL TWICE A DAY Gabapentin 300MG 638012 600 MILLIGRAMS TWICE A DAY ORAL 03/29/2019 13:00 Oral Capsule Prescription Detail TAKE 600 MILLIGRAMS ORAL TWI CE A DAY Medications Administered During Visit Unknown or Not Available. Encounters Encounter Diagnosis Diagnosis Code Start Date Diarrhea, unspecified R197 07/05/2015 Social History Smoking Status Code Start Date End Date Never smoker 361985830 Patient Decision Aids Unknown or Not Available. Discharge Instructions [facility] 06:06 with a principal diagnosis of Diarrhea, unspecified You were discharged from [facility] on 07/05/2015 09:46 Should you have any questions prior to d ischarge, please contact a member of your healthcare team. If you have left the spital and have any questions, please contact your primary care physician. Chief Complaint and Reason For Visit Chief Complaint Date of Onset Pain Function Status Unknown or Not Available. Plan of Care Unknown or Not Available. Referral/Transition of Care Unknown or Not Available.
--- OUTSIDE RECORDS SUMMARY | 2022-07-19 14:51 | XMS_ITS | CCD ---
:1980 Author Care Team Providers Name Role Phone PARK SWANSON Attending Physician Unavailable PARK SWANSON Er Physician 1 Unavailable Vital Signs Unknown or Not Available. Allergies Allergy Code Allergy Type Reaction Status PENICILLINS (CLASS) 11755 Drug allergy Active SULFA (sulfonamide) 0 Drug allergy Active AMOXICILLIN 723 Drug allergy Active Procedures Unknown or Not Available. History of Immunizations Unknown or Not Available. Problems Problem Code Start Date Resolved Date Status Renal stone 87711213 03/28/2019 Active Right upper quadrant pain 864874828 01/01/2016 Ac tive Disorder of gallbladder 50638614 01/01/2016 Acti ve Bipolar disorder 48387935 Active Hypothyroidism 85075185 Active Depression 87612713 Active Calculus of kidney 98688091 07/07/2015 01/02/2016 Resolved Results Active Medications Medication Code Dose Units Frequency Route Modification Start Date/Time Benztropine 802202 1 MILLIGRAMS TWICE A DAY ORAL 03/29 Mesylate 1MG 13:00 Oral Tablet Prescription Detail TAKE 1 MILLIGRAMS ORAL TWICE A DAY Gabapentin 300MG 776139 600 MILLIGRAMS TWICE A DAY ORAL 03/29/2019 13:00 Oral Capsule Prescription Detail TAKE 600 MILLIGRAMS ORAL TWI CE A DAY Medications Administered During Visit Unknown or Not Available. Encounters Encounter Diagnosis Diagnosis Code Start Date Suicidal ideations C97784 08/23/2015 Social History Smoking Status Code Start Date End Date Never smoker [id number] Patient Decision Aids Unknown or Not Available. Discharge Instructions [facility] 08[facility] 15:17 with a principal diagnosis of Suicidal ideations You were discharged from [facility] on 08/24/2015 12:09 Should you have any questions prior to d ischarge, please contact a member of your healthcare team. If you have left the ho spital and have any questions, please contact your primary care physician. Chief Complaint and Reason For Visit Chief Complaint Date of Onset SUICIDAL IDEATIONS Function Status Unknown or Not Available. Plan of Care Unknown or Not Available. Referral/Transition of Care Unknown or Not Available.
--- OUTSIDE RECORDS SUMMARY | 2022-07-19 14:51 | XMS_ITS | CCD ---
:1980 Author Care Team Providers Name Role Phone DAVE QUINTERO Chary Attending Physician Unavailable Vital Signs Unknown or Not Available. Allergies Allergy Code Allergy Type Reaction Status PENICILLINS (CLASS) 60445 Drug allergy Active SULFA (sulfonamide) 0 Drug allergy Active AMOXICILLIN 723 Drug allergy Active Procedures Unknown or Not Available. History of Immunizations Unknown or Not Available. Problems Problem Code Start Date Resolved Date Status Renal stone 09002123 03/28/2019 Active Right upper quadrant pain 567038366 01/01/2016 Ac tive Disorder of gallbladder 67571321 01/01/2016 Acti ve Bipolar disorder 11189889 Active Hypothyroidism 48915047 Active Depression 80335678 Active Calculus of kidney 64367454 07/07/2015 01/02/2016 Resolved Results Unknown or Not Available. Active Medications Medication Code Dose Units Frequency Route Modification Start Date/Time Benztropine 643145 1 MILLIGRAMS TWICE A DAY ORAL 03/29 Mesylate 1MG 13:00 Oral Tablet Prescription Detail TAKE 1 MILLIGRAMS ORAL TWICE A DAY Gabapentin 300MG 811334 600 MILLIGRAMS TWICE A DAY ORAL 03/29/2019 13:00 Oral Capsule Prescription Detail TAKE 600 MILLIGRAMS ORAL TWI CE A DAY Medications Administered During Visit Unknown or Not Available. Encounters Encounter Diagnosis Diagnosis Code Start Date Right upper quadrant pain R1011 12/25/2015 Social History Smoking Status Code Start Date End Date Never smoker 488643145 Patient Decision Aids Unknown or Not Available. Discharge Instructions [facility] were [facility] 12/[facility]/2015 09:26 with a principal diagnosis of Right upper quadrant pain You were discharged from [facility] on 12/25/2015 09:26 Should you have any questions prior to [...]
--- OUTSIDE RECORDS SUMMARY | 2022-07-19 14:51 | XMS_ITS | CCD ---
:1980 Author Care Team Providers Name Role Phone MARIO GARVIN Attending Physician Unavailable PARK LAMA Er Physician 1 Unavailable Vital Signs Unknown or Not Available. Allergies Allergy Code Allergy Type Reaction Status PENICILLINS (CLASS) 32460 Drug allergy Active SULFA (sulfonamide) 0 Drug allergy Active AMOXICILLIN 723 Drug allergy Active Procedures Unknown or Not Available. History of Immunizations Unknown or Not Available. Problems Problem Code Start Date Resolved Date Status Renal stone 54340085 03/28/2019 Active Right upper quadrant pain 462757488 01/01/2016 Ac tive Disorder of gallbladder 87275350 01/01/2016 Acti ve Bipolar disorder 19102717 Active Hypothyroidism 69557075 Active Depression 90824118 Active Calculus of kidney 15367721 07/07/2015 01/02/2016 Resolved Results Active Medications Medication Code Dose Units Frequency Route Modification Start Date/Time Benztropine 714283 1 MILLIGRAMS TWICE A DAY ORAL 03/29 Mesylate 1MG 13:00 Oral Tablet Prescription Detail TAKE 1 MILLIGRAMS ORAL TWICE A DAY Gabapentin 300MG 619729 600 MILLIGRAMS TWICE A DAY ORAL 03/29/2019 13:00 Oral Capsule Prescription Detail TAKE 600 MILLIGRAMS ORAL TWI CE A DAY Medications Administered During Visit Unknown or Not Available. Encounters Encounter Diagnosis Diagnosis Code Start Date Peptic ulcer, site unspecified, unspecified as acute or K279 11/18/2015 chronic, without hemorrhage or perforation Social History Smoking Status Code Start Date End Date Never smoker 502971112 Patient Decision Aids Unknown or Not Available. Discharge Instructions [facility] 10:48 with a principal diagnosis of Peptic ulcer, site unspecif ied, unspecified as acute or chronic, without h You were discharged from [facility] on 11/18/2015 14:12 Should you have any questions prior to d ischarge, please contact a member of your healthcare team. If you have left the spital and have any questions, please contact your primary care physician. Chief Complaint and Reason For Visit Chief Complaint Date of Onset Abdominal pain Function Status Unknown or Not Available. Plan of Care Unknown or Not Available. Referral/Transition of Care Unknown or Not Available.
--- OUTSIDE RECORDS SUMMARY | 2022-07-19 14:51 | XMS_ITS | CCD ---
:1980 Author Care Team Providers Name Role Phone AROLDO ZEFERINO Harris Attending Physician Unavailable ABNER HART Er Physician 1 Unavailable Adore., SOCRATES KINNEY Registered Nurse Unavailable W., OCTOBER MELYSSA Registered Nurse Unavailable F., BETY Long Registered Nurse Unavailable C., KANWAL Registered Nurse Unavailable T., [employer] Unavailable C., WINTER Rico Registered Nurse Unavailable Vital Signs Vital Sign Value Unit Date/Time Recent/Initial? BMI (Body Mass Index) 29.86 kg/m^2 07/07/2015 16:40 In itial VS Weight Measured 208.11 lbs 07/07/2015 16:40 Initial VS Height 70 in 07/07/2015 16:40 Initial VS BSA (Body Surface Area) 2.16 m^2 07/07/2015 16:40 Initial VS BP Systolic 111 mmHg 07/07/2015 17:40 Initial VS BP Diastolic 64 mmHg 07/07/2015 17:40 Initial VS Respiratory Rate 20 bpm 07/07/2015 17:40 Initial VS Heart Rate 66 bpm 07/07/2015 17:40 Initial VS O2 % BldC Oximetry 100 % 07/07/2015 17:40 Initi al VS Body Temperature 97.6 degrees 07/07/2015 17:40 Initial VS BMI (Body Mass Index) 30.05 kg/m^2 07/09/2015 04:[address] Recent VS Weight Measured 209.43 lbs 07/09/2015 04:18 Most Rec ent VS Height 70 in 07/09/2015 04:18 Most Recent VS BSA (Body Surface Area) 2.17 m^2 07/09/2015 04:18 Most Recent VS O2 % BldC Oximetry 94 % 07/09/2015 08:39 Most Recent VS BP Systolic 116 mmHg 07/09/2015 13:51 Most Recent VS BP Diastolic 74 mmHg 07/09/2015 13:51 Most Recent VS Respiratory Rate 16 bpm 07/09/2015 13:51 Most Re cent VS Heart Rate 53 bpm 07/09/2015 13:51 Most Recent VS Body Temperature 98 degrees 07/09/2015 13:51 Most Re cent VS Allergies Allergy Code Allergy Type Reaction Status PENICILLINS (CLASS) 71130 Drug allergy Active SULFA (sulfonamide) 0 Drug allergy Active AMOXICILLIN 723 Drug allergy Active Procedures Procedure Code Procedure Type Date Dilation of Left Ureter with Intraluminal [id number] ICD-10 PCS 07/08/2015 Device, Via Natural or Artificia Extirpation of Matter from Left Ureter, Via [id number] ICD- 10 PCS 07/08/2015 Natural or Artificial Opening History of Immunizations Unknown or Not Available. Problems Problem Code Start Date Resolved Date Status Renal stone 00498593 03/28/2019 Active Right upper quadrant pain 634557713 01/01/2016 Ac tive Disorder of gallbladder 73794295 01/01/2016 Acti ve Bipolar disorder 69763160 Active Hypothyroidism 42982220 Active Depression 28424548 Active Calculus of kidney 84052509 07/07/2015 01/02/2016 Resolved Results Active Medications Medications Administered During Visit Medication Dose Units Frequency Route Date/Time of L ast Dose NS 1000ML CONT IV 07/08/2015 13: 05 FLUOXETINE (PROZAC) CAP:20MG 20 MG DAILY PO 07/09/2015 08:39 CIPROFLOXACIN (CIPRO) PREMIX Q12H 07/09/2015 05:22 400MG/200ML ONDANSETRON (ZOFRAN) 4 MG PRN Q6H IVP 12/2015 11:27 VIAL:2MG/ML 2ML HYDROmorphone(DILAUDID) 1 MG PRN Q1H IVP 0 07/08/2015 16:42 AMP:1MG/ML (CII) oxyCODONE (ROXICODONE) 10 MG PRN Q4H PO 08:39 TAB:5MG (CII) TAMSULOSIN (FLOMAX) 0.4 MG DAILY PO 07/09 08:39 CAP:0.4MG DIVALPROEX SOD ER (DEPAKOTE 750 MG X1 PO 07/07/2015 23:33 ER)TAB:500MG DIVALPROEX SOD ER (DEPAKOTE 750 MG QHS PO 07/08/2015 22:01 ER)TAB:500MG FENTANYL 50 MICROGRAMS PRN Q5MIN IVP 07/08/2015 12: 50 (SUBLIMAZE)50MCG/ML:2ML (CII) PHENAZOPYRIDINE (PYRIDIUM) 200 MG PRN Q6H PO 07/09/2015 08:39 TAB:100MG Encounters Encounter Diagnosis Diagnosis Code Start Date Hydronephrosis with renal and ureteral calculous N132 07/07/2015 obstruction Social History Smoking Status Code Start Date End Date Never smoker [id number] Patient Decision Aids Unknown or Not Available. Discharge Instructions You were admitted to [facility] on 07/07/2015 13:35 with a principal diagnosis of Hydronephrosis with renal a nd ureteral calculous obstruction You had the following procedures done: Dilation of Left Ureter with Intraluminal Device, Via Natural or Artificia Extirpa tion of Matter from Left Ureter, Via Natural or Artificial Opening [facility]20 Should you have any questions prior to d ischarge, please contact a member of your healthcare team. If you have left the ho spital and have any questions, please contact your primary care physician. DIET: REGULAR DIET, VERBAL AND WRITTEN INSTRUCTIONS GIVEN. VERBALIZES UNDERSTANDING OF DIET. CHANGES MADE TO MEDICATIONS PRESCRIPTIO NS NEED TO BE FILLED TODAY. FOLLOWUP APPOINTMENT FOLLOWUP APPOINTME NT DATE 07-17-15 AND TIME IS 1:30. SIGNS AND SYMPTOMS OF STROKE INCLUDE YU DDEN NUMBNESS/WEAKNESS/PARALYSIS, SUDDEN VISUAL CHANGES. SUDDEN TROUBLE SPEAKING, SUDDEN CONFUSION OR NOT UNDERSTANDING. SUDDEN PROBLEM WITH WALKING OR BALANCE. SUDDEN SEVERE HEADACHE THAT IS DIFFERENT. RETURN TO ER FOR Chest Pain, Difficulty Breathing, Uncontrolled Bleeding, Fever over 101. Suicidal Feelings: call [phone], Uncontrolled Pain, Unable to Urinate Unable to keep down liquids, Weight gain more than 2 lbs per day. Increased swelling in legs and feet, Problems breathing at night. Increased fatique or weakness, Increase redness/swelling of incision. ACTIVITY As tolerated. EDUCATION COMPLETED INCLUDING PERSONAL RISK FACTORS OF STROKE/TIA, SIGNS AND SYMPTOMS OF STROKE. WHEN TO RETURN TO ER , MEDICATIONS AND FOLLOWUP APPOINTMENT. PATIENT VERBALIZES UNDERSTANDING, CALL [phone] FOR ANY SYMPTOMS OF STROKE. 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 Chief Complaint and Reason For Visit Chief Complaint Date of Onset URETHRAL OBSTRUCTION 07/07/2015 Function Status Unknown or Not Available. Plan of Care Unknown or Not Available. Referral/Transition of Care Referring Provider: Letty Sinha log Address: [address] [place] [address] Appointment Date: 07/17/2015 Additional Information: 1:30
--- OUTSIDE RECORDS SUMMARY | 2022-07-19 14:51 | XMS_ITS | CCD ---
:1980 Author Care Team Providers Name Role Phone SANTIAGO KENDRICKSkylar Harris Attending Physician Unavailable Vital Signs Vital Sign Value Unit Date/Time Recent/Initial? BP Systolic 106 mmHg 07/18/2015 12:15 Initial VS BP Diastolic 76 mmHg 07/18/2015 12:15 Initial VS Respiratory Rate 16 bpm 07/18/2015 12:15 Initial VS Heart Rate 88 bpm 07/18/2015 12:15 Initial VS O2 % BldC Oximetry 100 % 07/18/2015 12:15 Initi al VS Body Temperature 97.1 degrees 07/18/2015 12:15 Initial VS Body Temperature 98.4 degrees 07/18/2015 14:57 Most Re cent VS BP Systolic 113 mmHg 07/18/2015 15:27 Most Recent VS BP Diastolic 72 mmHg 07/18/2015 15:27 Most Recent VS Respiratory Rate 18 bpm 07/18/2015 15:27 Most Re cent VS Heart Rate 56 bpm 07/18/2015 15:27 Most Recent VS O2 % BldC Oximetry 98 % 07/18/2015 15:27 Most Recent VS Allergies Allergy Code Allergy Type Reaction Status PENICILLINS (CLASS) 24448 Drug allergy Active SULFA (sulfonamide) 0 Drug allergy Active AMOXICILLIN 723 Drug allergy Active Procedures Procedure Code Procedure Type Date Lithotripsy xtrcorp shock wave; [place] [address] CPT 07/18/2015 body) History of Immunizations Unknown or Not Available. Problems Problem Code Start Date Resolved Date Status Renal stone 33266043 03/28/2019 Active Right upper quadrant pain 878118332 01/01/2016 Ac tive Disorder of gallbladder 33259020 01/01/2016 Acti ve Bipolar disorder 74904496 Active Hypothyroidism 03785342 Active Depression 41879795 Active Calculus of kidney 79374064 07/07/2015 01/02/2016 Resolved Results Unknown or Not Available. Active Medications Medications Administered During Visit Medication Dose Units Frequency Route Date/Time of L ast Dose LR 1000ML (LACTATED RINGERS) CONT IV 07/18/2015 12:05 DIAZEPAM VALIUM TAB:5MG CIV 10 MG X1 PO 07/18/2015 12:05 DIPHENHYDRAMINE (BENADRYL) 25 MG X1 PO 07/18/2015 12:05 TAB:25MG CIPROFLOXACIN (CIPRO) PREMIX X1 07/18/2015 12:05 400MG/200ML Encounters Encounter Diagnosis Diagnosis Code Start Date Hydronephrosis with renal and ureteral calculous N132 07/18/2015 obstruction Social History Smoking Status Code Start Date End Date Never smoker [id number] Patient Decision Aids Patient Decision Aid Lithotripsy Discharge Instructions [facility] were [facility] to [facility] on 07/18/2015 11:44 with a principal diagnosis of Hydronephrosis with renal a nd ureteral calculous obstruction You had the following procedures done: Lithotripsy xtrcorp shock wave; (-RT Right side of body) You were [facility] on 07/18/2015 15:55 Should you have any questions prior to d ischarge, please contact a member of your healthcare team. If you have left the ho spital and have any questions, please contact your primary care physician. DIET: Regular. LIFTING RESTRICTIONS No Restrictions. DRIVING RESTRICTIONS No driving for the next 24 hours, OR WHILE TAKING PRESCRIPTION PAIN MEDICATIONS BATHING RESTRICTIONS You may shower zuleyka orrow. SPECIAL INSTRUCTIONS You may take laxat julia. CHECK YOUR TEMPERATURE EVERY 4 HOURS FOR THE FIRST 24 HOURS IF IT IS [address] KENDRICK CONTACT YOUR PHYSICIAN IF YOU EXPERIENCE Pain not relieved by medication, Dizziness, unable to stand. Prolonged bleeding, Fev er over 101, Prolonged vomiting. At night and weekends call [phone]. Ask katie garcia pipe cleaning machine operator to page surgeon. FOLLOW-UP CARE Appointment with Dr. RENETTA FOREMAN ON 09/22/15 AT 8:45 NEED KUB PRIOR TO YOUR FOLLOW UP PT ENCOURAGED TO TAKE CJ NEFF MED LIS. Chief Complaint and Reason For Visit Chief Complaint Date of Onset 592.0 Function Status Unknown or Not Available. Plan of Care Unknown or Not Available. Referral/Transition of Care Unknown or Not Available.
--- OUTSIDE RECORDS SUMMARY | 2022-07-19 14:52 | XMS_ITS | CCD ---
:1980 Author Care Team Providers Name Role Phone PARK SWANSON Attending Physician Unavailable PARK SWANSON Er Physician 1 Unavailable Vital Signs Unknown or Not Available. Allergies Allergy Code Allergy Type Reaction Status PENICILLINS (CLASS) 06180 Drug allergy Active SULFA (sulfonamide) 0 Drug allergy Active AMOXICILLIN 723 Drug allergy Active Procedures Unknown or Not Available. History of Immunizations Unknown or Not Available. Problems Problem Code Start Date Resolved Date Status Renal stone 46385416 03/28/2019 Active Right upper quadrant pain 720136531 01/01/2016 Ac tive Disorder of gallbladder 82219611 01/01/2016 Acti ve Bipolar disorder 81196373 Active Hypothyroidism 18562207 Active Depression 24572536 Active Results Unknown or Not Available. Active Medications Medication Code Dose Units Frequency Route Modification Start Date/Time Benztropine 199705 1 MILLIGRAMS TWICE A DAY ORAL 03/29 Mesylate 1MG 13:00 Oral Tablet Prescription Detail TAKE 1 MILLIGRAMS ORAL TWICE A DAY Gabapentin 300MG 874724 600 MILLIGRAMS TWICE A DAY ORAL 03/29/2019 13:00 Oral Capsule Prescription Detail TAKE 600 MILLIGRAMS ORAL TWI CE A DAY Medications Administered During Visit Unknown or Not Available. Encounters Encounter Diagnosis Diagnosis Code Start Date Hyperventilation R064 01/31/2019 Social History Smoking Status Code Start Date End Date Never smoker 477710703 Patient Decision Aids Unknown or Not Available. Discharge Inst[facility] 08[facility]28 with a principal diagnosis of Hyperventilation You were discharged from [facility] on 01/31/2019 10:26 Should you have any [...]
--- OUTSIDE RECORDS SUMMARY | 2022-07-19 14:52 | XMS_ITS | CCD ---
:1980 Author Care Team Providers Name Role Phone ZEFERINO KENDRICK Steven Attending Physician Unavailable Vital Signs Unknown or Not Available. Allergies Allergy Code Allergy Type Reaction Status PENICILLINS (CLASS) 58545 Drug allergy Active SULFA (sulfonamide) 0 Drug allergy Active AMOXICILLIN 723 Drug allergy Active Procedures Unknown or Not Available. History of Immunizations Unknown or Not Available. Problems Problem Code Start Date Resolved Date Status Renal stone 80142666 03/28/2019 Active Right upper quadrant pain 815838040 01/01/2016 Ac tive Disorder of gallbladder 96382092 01/01/2016 Acti ve Bipolar disorder 85529973 Active Hypothyroidism 06520767 Active Depression 71859162 Active Results Unknown or Not Available. Active Medications Medication Code Dose Units Frequency Route Modification Start Date/Time Benztropine 427563 1 MILLIGRAMS TWICE A DAY ORAL 03/29 Mesylate 1MG 13:00 Oral Tablet Prescription Detail TAKE 1 MILLIGRAMS ORAL TWICE A DAY Gabapentin 300MG 222547 600 MILLIGRAMS TWICE A DAY ORAL 03/29/2019 13:00 Oral Capsule Prescription Detail TAKE 600 MILLIGRAMS ORAL TWI CE A DAY Medications Administered During Visit Unknown or Not Available. Encounters Encounter Diagnosis Diagnosis Code Start Date Calculus of kidney N200 04/03/2019 Social History Smoking Status Code Start Date End Date Never smoker 347071624 Patient Decision Aids Unknown or Not Available. Discharge Instructions You were admitted to [facility] on 04/03/2019 09:36 with a principal diagnosis of Calculus of kidney You were discharged from [facility] on 04/03/2019 09:36 Should you have any questions prior to d ischarge, please contact a member of your healthcare team. If you have left the ho spital and have any questions, please contact your primary care physician. Chief Complaint and Reason For Visit Chief Complaint Date of Onset Calculus of kidney 04/03/2019 Function Status Unknown or Not Available. Plan of Care Unknown or Not Available. Referral/Transition of Care Unknown or Not Available.
--- OUTSIDE RECORDS SUMMARY | 2022-07-19 14:52 | XMS_ITS | CCD ---
:1980 Author Care Team Providers Name Role Phone ZEFERINO KENDRICK Steven Attending Physician Unavailable Vital Signs Unknown or Not Available. Allergies Allergy Code Allergy Type Reaction Status PENICILLINS (CLASS) 71299 Drug allergy Active SULFA (sulfonamide) 0 Drug allergy Active AMOXICILLIN 723 Drug allergy Active Procedures Unknown or Not Available. History of Immunizations Unknown or Not Available. Problems Problem Code Start Date Resolved Date Status Renal stone 92261211 03/28/2019 Active Right upper quadrant pain 357935046 01/01/2016 Ac tive Disorder of gallbladder 96626963 01/01/2016 Acti ve Bipolar disorder 00556299 Active Hypothyroidism 12644409 Active Depression 38201122 Active Results Unknown or Not Available. Active Medications Medication Code Dose Units Frequency Route Modification Start Date/Time Benztropine 660999 1 MILLIGRAMS TWICE A DAY ORAL 03/29 Mesylate 1MG 13:00 Oral Tablet Prescription Detail TAKE 1 MILLIGRAMS ORAL TWICE A DAY Gabapentin 300MG 385851 600 MILLIGRAMS TWICE A DAY ORAL 03/29/2019 13:00 Oral Capsule Prescription Detail TAKE 600 MILLIGRAMS ORAL TWI CE A DAY Medications Administered During Visit Unknown or Not Available. Encounters Encounter Diagnosis Diagnosis Code Start Date History and physical examination, administrative 83681713 03/29/2019 Social History Smoking Status Code Start Date End Date Never smoker 552701330 Patient Decision Aids Unknown or Not Available. Discharge Instructions [facility] were [facility] on 03/29/2019 09:37 with a principal diagnosis of Encounter for administrativ e examinations, unspecified You were discharged from [facility] on 11/01/2019 10:50 Should you have any questions prior to d ischarge, please contact a member of your healthcare team. If you have left the ho spital and have any questions, please contact your primary care physician. Chief Complaint and Reason For Visit Chief Complaint Date of Onset INDIGENT PHARMACY 03/29/2019 Function Status Unknown or Not Available. Plan of Care Unknown or Not Available. Referral/Transition of Care Unknown or Not Available.
--- OUTSIDE RECORDS SUMMARY | 2022-07-19 14:52 | XMS_ITS | CCD ---
:1980 Author Care Team Providers Name Role Phone CHANO CAMPBELL JR Attending Physician Unavailable CHANO CAMPBELL JR Er Physician 1 Unavailable Vital Signs Unknown or Not Available. Allergies Allergy Code Allergy Type Reaction Status PENICILLINS (CLASS) 22943 Drug allergy Active SULFA (sulfonamide) 0 Drug allergy Active AMOXICILLIN 723 Drug allergy Active Procedures Unknown or Not Available. History of Immunizations Unknown or Not Available. Problems Problem Code Start Date Resolved Date Status Renal stone 25973516 03/28/2019 Active Right upper quadrant pain 903701000 01/01/2016 Ac tive Disorder of gallbladder 71301742 01/01/2016 Acti ve Bipolar disorder 05267686 Active Hypothyroidism 57789760 Active Depression 49710997 Active Calculus of kidney 15734020 07/07/2015 01/02/2016 Resolved Results Active Medications Medication Code Dose Units Frequency Route Modification Start Date/Time Benztropine 536970 1 MILLIGRAMS TWICE A DAY ORAL 03/29 Mesylate 1MG 13:00 Oral Tablet Prescription Detail TAKE 1 MILLIGRAMS ORAL TWICE A DAY Gabapentin 300MG 416030 600 MILLIGRAMS TWICE A DAY ORAL 03/29/2019 13:00 Oral Capsule Prescription Detail TAKE 600 MILLIGRAMS ORAL TWI CE A DAY Medications Administered During Visit Unknown or Not Available. Encounters Encounter Diagnosis Diagnosis Code Start Date Generalized abdominal pain R1084 12/27/2015 Social History Smoking Status Code Start Date End Date Never smoker 811448985 Patient Decision Aids Unknown or Not Available. Discharge Instructions [facility] were [facility] on 12/27/2015 08:52 with a principal diagnosis of Generalized abdominal pain You were discharged from [facility] on 12/27/2015 12:03 Should you have any questions prior to d ischarge, please contact a member of your healthcare team. If you have left the spital and have any questions, please contact your primary care physician. Chief Complaint and Reason For Visit Chief Complaint Date of Onset Abdominal pain 12/27/2015 Function Status Unknown or Not Available. Plan of Care Unknown or Not Available. Referral/Transition of Care Unknown or Not Available.
--- OUTSIDE RECORDS SUMMARY | 2022-07-19 14:52 | XMS_ITS | CCD ---
:1980 Author Care Team Providers Name Role Phone ZEFERINO KENDRICK Attending Physician Unavailable JORJE HARTMANN Er Physician 1 Unavailable Vital Signs Vital Sign Value Unit Date/Time Recent/Initial? BMI (Body Mass Index) 26.29 kg/m^2 03/28/2019 10:48 In itial VS Weight Measured 183.2 lbs 03/28/2019 10:48 Initial VS Height 70 in 03/28/2019 10:48 Initial VS BSA (Body Surface Area) 2.03 m^2 03/28/2019 10:48 Initial VS BP Systolic 134 mmHg 03/28/2019 10:48 Initial VS BP Diastolic 88 mmHg 03/28/2019 10:48 Initial VS Respiratory Rate 18 bpm 03/28/2019 10:48 Initial VS Heart Rate 91 bpm 03/28/2019 10:48 Initial VS O2 % BldC Oximetry 97 % 03/28/2019 10:48 Initi al VS Body Temperature 98.2 degrees 03/28/2019 10:48 Initial VS BMI (Body Mass Index) 26.73 kg/m^2 03/29/2019 04:[address] Recent VS Weight Measured 186.29 lbs 03/29/2019 04:00 Most Rec ent VS Height 70 in 03/29/2019 04:00 Most Recent VS BSA (Body Surface Area) 2.04 m^2 03/29/2019 04:00 Most Recent VS BP Systolic 124 mmHg 03/29/2019 15:38 Most [...] Code Allergy Type Reaction Status PENICILLINS (CLASS) 11337 Drug allergy Active SULFA (sulfonamide) 0 Drug allergy Active AMOXICILLIN 723 Drug allergy Active Procedures Procedure Code Procedure Type Date Extirpation of Matter from Right Ureter, Via [id number] ICD -10 PCS 03/29/2019 Natural or Artificial Opening Dilation of Right Ureter with Intraluminal [id number] ICD-1 0 PCS 03/29/2019 Device, Via Natural or Artifici Fluoroscopy of Right Kidney, Ureter and Bladder [id number] ICD-10 PCS 03/29/2019 using Other Contrast History of Immunizations Unknown or Not Available. Problems Problem Code Start Date Resolved Date Status Renal stone 27953954 03/28/2019 Active Right upper quadrant pain 644741438 01/01/2016 Ac tive Disorder of gallbladder 37396954 01/01/2016 Acti ve Bipolar disorder 60895185 Active Hypothyroidism 52289626 Active Depression 22304258 Active Results Active Medications Medications Administered During Visit Medication Dose Units Frequency Route Date/Time of L ast Dose BENZTROPINE (COGENTIN) TAB:1MG 1 MG BID PO 03/28/2019 20:57 GABAPENTIN (NEURONTIN) 600 MG BID PO 20:57 CAP:300MG ALPRAZolam (XANAX) TAB:0.5MG 0.5 MG PRN Q6H PO 03/28/2019 16:25 (CIV) CITALOPRAM (CeleXA) TAB:40MG 40 MG DAILY PO 03/28/2019 12:15 ARIPIPRAZOLE (ABILIFY) TAB:2MG 2 MG DAILY PO 03/28/2019 12:15 NS 1000ML CONT IV 03/29/2019 01: 13 ONDANSETRON (ZOFRAN) 4 MG PRN Q6H IVP 03/05 04:17 VIAL:2MG/ML 2ML morphine SYRINGE: 2MG (CII) 1 MG PRN Q1H IVP 03/28/2019 12:16 HYDROmorphone(DILAUDID) 1 MG PRN Q4H IVP 0 03/29/2019 04:16 AMP:1MG/ML (CII) oxyCODONE (ROXICODONE) TAB:5MG 10 MG PRN Q3H PO 03/28/2019 16:24 (CII) CIPROFLOXACIN (CIPRO) PREMIX Q12H 03/28/2019 20:56 400MG/200ML BENZTROPINE (COGENTIN) TAB:1MG 1 MG BID PO 03/29/2019 10:25 GABAPENTIN (NEURONTIN) 600 MG BID PO 10:25 CAP:300MG CITALOPRAM (CeleXA) TAB:40MG 40 MG DAILY PO 03/29/2019 10:25 ARIPIPRAZOLE (ABILIFY) TAB:2MG 2 MG DAILY PO 03/29/2019 10:25 NS 1000ML CONT IV 03/29/2019 11: 03 oxyCODONE (ROXICODONE) TAB:5MG 10 MG PRN Q3H PO 03/29/2019 10:24 (CII) Encounters Encounter Diagnosis Diagnosis Code Start Date Hydronephrosis with renal and ureteral calculous N132 03/28/2019 obstruction Social History Smoking Status Code Start Date End Date Never smoker [id number] Patient Decision Aids Patient Decision Aid Ciprofloxacin (Injection) (Injectable) Oxycodone, Rapid Release (Oral) (Capsule , Liquid, Tablet) Discharge Instructions You were admitted to [facility] on 03/28/2019 07:06 with a principal diagnosis of Hydronephrosis with renal a nd ureteral calculous obstruction You had the following procedures done: Extirpation of Matter from Right Ureter, Via Natural or Artificial Opening Dilation o f Right Ureter with Intraluminal Device, Via Natural or Artifici Fluoroscopy of Right Kidney, Ureter and Bladder using Other Contrast You were discharged from [facility] on 03/29/2019 16:36 Should you have any questions prior to d ischarge, please contact a member of your healthcare team. If you have left the ho spital and have any questions, please contact your primary care physician. DIET: REGULAR DIET. ACTIVITY As tolerated. IS PATIENT ON OXYGEN WHILE IN HOSPITAL? No. PAIN SCALE: 0. FOCUSED ASSESSMENT _03/28 _ Last BM, Megha rt and oriented, Speech clear, Unlabored respirations. Vital signs within normal limits, Urine output greater than 30ml/hr. Abdomen soft/non-distended. ASSESSMENT CONTINUED IV discontinued si te W/O redness or larry. FOLLOWUP APPOINTMENT Follow-up in physi kg office date/time. Patient has trasportation to appointment. PERSONAL RISK FACTORS OF STROKE n/a SIGNS AND SYMPTOMS OF STROKE INCLUDE [place] dden numbness/weakness/paralysis, Sudden visual changes. Sudden trouble speaking, Sudden confusion or not understanding. Sudden problem with walking or balance. Sudden severe headache that is different. RETURN TO ER FOR Uncontrolled Pain. SPECIAL INSTRUCTIONS Drain intact/educa hi on care, Discharged with brady/care instructions. EDUCATION COMPLETED INCLUDING Personal risk factors of stroke/TIA, Signs and symptoms of stroke. Medications and foll owup appointment, Patient verbalizes understanding. Caregiver verbalizes unde rstanding, Call 911 for any symptoms of stroke. Chief Complaint and Reason For Visit Chief Complaint Date of Onset FLANK PAIN 03/28/2019 Function Status Unknown or Not Available. Plan of Care Unknown or Not Available. Referral/Transition of Care Reason for Referral: FOLLOWUP IN OFFICE ON 04/03/19 @ 10AM Appointment Date: 04/03/2019 Reason for Referral: FOLLOW UP IN OFFIC E ON 04/16/19 @ 3PM Appointment Date: 04/16/2019
--- OUTSIDE RECORDS SUMMARY | 2022-07-19 14:52 | XMS_ITS | CCD ---
:1980 Author Care Team Providers Name Role Phone MARIO GARVIN Attending Physician Unavailable MARIO GARVIN Er Physician 1 Unavailable Vital Signs Unknown or Not Available. Allergies Allergy Code Allergy Type Reaction Status PENICILLINS (CLASS) 43710 Drug allergy Active SULFA (sulfonamide) 0 Drug allergy Active AMOXICILLIN 723 Drug allergy Active Procedures Unknown or Not Available. History of Immunizations Unknown or Not Available. Problems Problem Code Start Date Resolved Date Status Renal stone 38519531 03/28/2019 Active Right upper quadrant pain 760494976 01/01/2016 Ac tive Disorder of gallbladder 47093269 01/01/2016 Acti ve Bipolar disorder 53600942 Active Hypothyroidism 93246362 Active Depression 80305217 Active Results Active Medications Medications Administered During Visit Unknown or Not Available. Encounters Encounter Diagnosis Diagnosis Code Start Date Bipolar disorder, unspecified F319 06/14/2016 Social History Smoking Status Code Start Date End Date Never smoker 949060057 Patient Decision Aids Unknown or Not Available. [facility]charge [facility] with a principal diagnosis of Bipolar disorder, unspecifi ed You were discharged from [facility] on 06/21/2016 13:49 Should you have any questions prior to d ischarge, please contact a member of your healthcare team. If you have left the spital and have any questions, please contact your primary care physician. Chief Complaint and Reason For Visit Chief Complaint Date of Onset PSYCHOTIC 06/14/2016 Function Status Unknown or Not Available. Plan of Care Unknown or Not Available. Referral/Transition of Care Unknown or Not Available.
--- OUTSIDE RECORDS SUMMARY | 2022-07-19 14:52 | XMS_ITS | CCD ---
:1980 Author Care Team Providers Name Role Phone ROSA FIELDS Attending Physician Unavailable ROSA FIELDS Er Physician 1 Unavailable Vital Signs Unknown or Not Available. Allergies Allergy Code Allergy Type Reaction Status PENICILLINS (CLASS) 88915 Drug allergy Active SULFA (sulfonamide) 0 Drug allergy Active AMOXICILLIN 723 Drug allergy Active Procedures Unknown or Not Available. History of Immunizations Unknown or Not Available. Problems Problem Code Start Date Resolved Date Status Renal stone 03934487 03/28/2019 Active Right upper quadrant pain 678851041 01/01/2016 Ac tive Disorder of gallbladder 18744830 01/01/2016 Acti ve Bipolar disorder 67758607 Active Hypothyroidism 18306127 Active Depression 25446735 Active Results Active Medications Medication Code Dose Units Frequency Route Modification Start Date/Time Benztropine 242857 1 MILLIGRAMS TWICE A DAY ORAL 03/29 Mesylate 1MG 13:00 Oral Tablet Prescription Detail TAKE 1 MILLIGRAMS ORAL TWICE A DAY Gabapentin 300MG 496647 600 MILLIGRAMS TWICE A DAY ORAL 03/29/2019 13:00 Oral Capsule Prescription Detail TAKE 600 MILLIGRAMS ORAL TWI CE A DAY Medications Administered During Visit Unknown or Not Available. Encounters Encounter Diagnosis Diagnosis Code Start Date Unspecified symptoms and signs involving cognitive R419 03/02/2019 functions and awareness Social History Smoking Status Code Start Date End Date Never smoker 887856404 Patient Decision Aids Unknown or Not Available. Discharge Instructions [facility] 03/[facility]/2019 14:35 with a principal diagnosis of Unspecified symptoms and si gns involving cognitive functions and awareness You were discharged from [facility] on 03/02/2019 17:28 Should you have any [...]
--- OUTSIDE RECORDS SUMMARY | 2022-07-19 14:52 | XMS_ITS | CCD ---
:1980 Author Care Team Providers Name Role Phone ITZ MORAES Attending Physician Unavailable ITZ MORAES Er Physician 1 Unavailable Vital Signs Unknown or Not Available. Allergies Allergy Code Allergy Type Reaction Status PENICILLINS (CLASS) 09900 Drug allergy Active SULFA (sulfonamide) 0 Drug allergy Active AMOXICILLIN 723 Drug allergy Active Procedures Unknown or Not Available. History of Immunizations Unknown or Not Available. Problems Problem Code Start Date Resolved Date Status Renal stone 16318197 03/28/2019 Active Right upper quadrant pain 307380679 01/01/2016 Ac tive Disorder of gallbladder 61043513 01/01/2016 Acti ve Bipolar disorder 96903114 Active Hypothyroidism 45147943 Active Depression 79214955 Active Results Active Medications Medication Code Dose Units Frequency Route Modification Start Date/Time Benztropine 391386 1 MILLIGRAMS TWICE A DAY ORAL 03/29 Mesylate 1MG 13:00 Oral Tablet Prescription Detail TAKE 1 MILLIGRAMS ORAL TWICE A DAY Gabapentin 300MG 377131 600 MILLIGRAMS TWICE A DAY ORAL 03/29/2019 13:00 Oral Capsule Prescription Detail TAKE 600 MILLIGRAMS ORAL TWI CE A DAY Medications Administered During Visit Unknown or Not Available. Encounters Encounter Diagnosis Diagnosis Code Start Date Other acute postprocedural pain G8918 03/30/20 19 Social History Smoking Status Code Start Date End Date Never smoker 892643192 Patient Decision Aids Unknown or Not Available. Discharge Instructions You were admitted to [facility] on 03/30/2019 09:13 with a principal diagnosis of Other acute postprocedural pain You were [facility] from [facility] on 03/30/2019 11:36 Should you have any [...]
--- OUTSIDE RECORDS SUMMARY | 2022-07-19 14:53 | XMS_ITS ---
:1980 Author Organization [facility] Address [address] [place] [address] Care Team Providers Name Role Phone Bola Browne Unavailable Unavailable PROBLEMS Type Condition ICD9-CM Code [id number] Code Onset Condition SNO MED Code Dates Status Problem Calculus of N20.0 Active [id number] Right kidney ALLERGIES No Information ENCOUNTERS Encounter Location Date Diagnosis [facility] [address] [facility] Jun, Calcul us of Right kidney [place], [place] N20.[address] [facility] [address] [facility] Jun, [place] [address] IMMUNIZATIONS No Known Immunizations SOCIAL HISTORY Never Assessed REASON FOR REFERRAL FUNCTIONAL STATUS PLAN OF CARE VITAL SIGNS MEDICATIONS Unknown Medications PROCEDURES No Known procedures RESULTS No Results REASON FOR VISIT ? stented, R uret, ? stented, R uret
--- OUTSIDE RECORDS SUMMARY | 2022-07-19 14:53 | XMS_ITS | CCD ---
:1980 Author Care Team Providers Name Role Phone VEOT HARRISON Attending Physician Unavailable MARY GIBBONS Er Physician 1 Unavailable Vital Signs Unknown or Not Available. Allergies Allergy Code Allergy Type Reaction Status PENICILLINS (CLASS) 06542 Drug allergy Active SULFA (sulfonamide) 0 Drug allergy Active AMOXICILLIN 723 Drug allergy Active Procedures Unknown or Not Available. History of Immunizations Unknown or Not Available. Problems Problem Code Start Date Resolved Date Status Renal stone 60056048 03/28/2019 Active Right upper quadrant pain 235870200 01/01/2016 Ac tive Disorder of gallbladder 72767084 01/01/2016 Acti ve Bipolar disorder 67575050 Active Hypothyroidism 97618740 Active Depression 01255033 Active Results Active Medications Medications Administered During Visit Medication Dose Units Frequency Route Date/Time of L ast Dose BENZTROPINE (COGENTIN) 1 MG BID PO 09:15 TAB:1MG GABAPENTIN (NEURONTIN) 600 MG BID PO 09:15 CAP:300MG PAROXETINE (PAXIL) TAB:20MG 80 MG DAILY PO 03/17/2020 09:15 PROPRANOLOL (INDERAL) 40 MG DAILY PO 09:15 TAB:40MG VIT D(ERGOCALCIFEROL 25172 UNITS QWK PO 03/04 09:15 1.25MG)CAP:50,000UN NITROFURANTOIN (MACROBID) 100 MG BID PO 03/17/2020 16:38 CAP:100MG Encounters Encounter Diagnosis Diagnosis Code Start Date Delusional disorders F22 03/15/2020 Social History Smoking Status Code Start Date End Date Never smoker [id number] Patient Decision Aids Unknown or Not Available. Discharge Instructions [facility] 03[facility] 10:29 with a principal diagnosis of Delusional disorders You were [facility] from [facility] on 03/17/2020 19:05 Should you have any [...]
--- OUTSIDE RECORDS SUMMARY | 2022-07-19 14:53 | XMS_ITS | CCD ---
:1980 Author Care Team Providers Name Role Phone MARIO TAYLOR Attending Physician Unavailable MARIO TAYLOR Er Physician 1 Unavailable Vital Signs Unknown or Not Available. Allergies Allergy Code Allergy Type Reaction Status PENICILLINS (CLASS) 90152 Drug allergy Active SULFA (sulfonamide) 0 Drug allergy Active AMOXICILLIN 723 Drug allergy Active Procedures Unknown or Not Available. History of Immunizations Unknown or Not Available. Problems Problem Code Start Date Resolved Date Status Renal stone 97233484 03/28/2019 Active Right upper quadrant pain 999966400 01/01/2016 Ac tive Disorder of gallbladder 38761104 01/01/2016 Acti ve Bipolar disorder 75169490 Active Hypothyroidism 13801164 Active Depression 46942698 Active Results Active Medications Medication Code Dose Units Frequency Route Modification Start Date/Time Benztropine 653908 1 MILLIGRAMS TWICE A DAY ORAL 03/29 Mesylate 1MG 13:00 Oral Tablet Prescription Detail TAKE 1 MILLIGRAMS ORAL TWICE A DAY Gabapentin 300MG 838062 600 MILLIGRAMS TWICE A DAY ORAL 03/29/2019 13:00 Oral Capsule Prescription Detail TAKE 600 MILLIGRAMS ORAL TWI CE A DAY Medications Administered During Visit Unknown or Not Available. Encounters Encounter Diagnosis Diagnosis Code Start Date Anxiety disorder, unspecified F419 06/19/2019 Social History Smoking Status Code Start Date End Date Never smoker 131409390 Patient Decision Aids Unknown or Not Available. Discharge Instructions You were admitted to [facility] on 06/19/2019 15:29 with a principal diagnosis of Anxiety disorder, unspecifi ed You were discharged from [facility] on 06/20/2019 01:51 Should you have any questions prior to d ischarge, please contact a member of your healthcare team. If you have left the ho spital and have any questions, please contact your primary care physician. Chief Complaint and Reason For Visit Chief Complaint Date of Onset PANIC ATTACK 06/19/2019 Function Status Unknown or Not Available. Plan of Care Unknown or Not Available. Referral/Transition of Care Unknown or Not Available.
--- OUTSIDE RECORDS SUMMARY | 2022-07-19 14:53 | XMS_ITS | CCD ---
:1980 Author Care Team Providers Name Role Phone JUSTIN RODRÍGUEZ Attending Physician Unavailable JUSTIN RODRÍGUEZ Er Physician 1 Unavailable Vital Signs Unknown or Not Available. Allergies Allergy Code Allergy Type Reaction Status PENICILLINS (CLASS) 87248 Drug allergy Active SULFA (sulfonamide) 0 Drug allergy Active AMOXICILLIN 723 Drug allergy Active Procedures Unknown or Not Available. History of Immunizations Unknown or Not Available. Problems Problem Code Start Date Resolved Date Status Renal stone 95198573 03/28/2019 Active Right upper quadrant pain 361802178 01/01/2016 Ac tive Disorder of gallbladder 31272618 01/01/2016 Acti ve Bipolar disorder 28542490 Active Hypothyroidism 80190904 Active Depression 91833437 Active Results Unknown or Not Available. Active Medications Medication Code Dose Units Frequency Route Modification Start Date/Time Benztropine 260069 1 MILLIGRAMS TWICE A DAY ORAL 03/29 Mesylate 1MG 13:00 Oral Tablet Prescription Detail TAKE 1 MILLIGRAMS ORAL TWICE A DAY Gabapentin 300MG 888020 600 MILLIGRAMS TWICE A DAY ORAL 03/29/2019 13:00 Oral Capsule Prescription Detail TAKE 600 MILLIGRAMS ORAL TWI CE A DAY Medications Administered During Visit Unknown or Not Available. Encounters Encounter Diagnosis Diagnosis Code Start Date Headache R51 10/01/2019 Social History Smoking Status Code Start Date End Date Never smoker 287345462 Patient Decision Aids Unknown or Not Available. Discharge Instructions You were admitted to [facility] on 10/01/2019 18:02 with a principal diagnosis of Headache You were discharged from [facility] on 10/01/2019 19:36 Should you have any [...]
--- OUTSIDE RECORDS SUMMARY | 2022-07-19 14:53 | XMS_ITS | CCD ---
:1980 Author Care Team Providers Name Role Phone JUSTIN RODRÍGUEZ Attending Physician Unavailable MARY GIBBONS Er Physician 1 Unavailable Vital Signs Unknown or Not Available. Allergies Allergy Code Allergy Type Reaction Status PENICILLINS (CLASS) 17275 Drug allergy Active SULFA (sulfonamide) 0 Drug allergy Active AMOXICILLIN 723 Drug allergy Active Procedures Unknown or Not Available. History of Immunizations Unknown or Not Available. Problems Problem Code Start Date Resolved Date Status Renal stone 72443131 03/28/2019 Active Right upper quadrant pain 279931610 01/01/2016 Ac tive Disorder of gallbladder 81923667 01/01/2016 Acti ve Bipolar disorder 59792080 Active Hypothyroidism 30021965 Active Depression 58137580 Active Results Active Medications Medication Code Dose Units Frequency Route Modification Start Date/Time Benztropine 666578 1 MILLIGRAMS TWICE A DAY ORAL 03/29 Mesylate 1MG 13:00 Oral Tablet Prescription Detail TAKE 1 MILLIGRAMS ORAL TWICE A DAY Gabapentin 300MG 718362 600 MILLIGRAMS TWICE A DAY ORAL 03/29/2019 13:00 Oral Capsule Prescription Detail TAKE 600 MILLIGRAMS ORAL TWI CE A DAY Medications Administered During Visit Unknown or Not Available. Encounters Encounter Diagnosis Diagnosis Code Start Date Migraine without aura, not intractable, without status G4300 9 09/26/2019 migrainosus Social History Smoking Status Code Start Date End Date Never smoker 796190032 Patient Decision Aids Unknown or Not Available. [facility] 18:14 with a principal diagnosis of Migraine without aura, not intractable, without status migrainosus You were discharged from [facility] on 09/26/2019 21:15 Should you have any [...]
--- OUTSIDE RECORDS SUMMARY | 2022-07-19 14:53 | XMS_ITS | CCD ---
:1980 Author Care Team Providers Name Role Phone ELADIO OJEDA Attending Physician Unavailable ELADIO OJEDA Er Physician 1 Unavailable Vital Signs Unknown or Not Available. Allergies Allergy Code Allergy Type Reaction Status PENICILLINS (CLASS) 11383 Drug allergy Active SULFA (sulfonamide) 0 Drug allergy Active AMOXICILLIN 723 Drug allergy Active Procedures Unknown or Not Available. History of Immunizations Unknown or Not Available. Problems Problem Code Start Date Resolved Date Status Renal stone 26206019 03/28/2019 Active Right upper quadrant pain 228371742 01/01/2016 Ac tive Disorder of gallbladder 67184842 01/01/2016 Acti ve Bipolar disorder 23721931 Active Hypothyroidism 30611376 Active Depression 61004954 Active Results Active Medications Medication Code Dose Units Frequency Route Modification Start Date/Time Benztropine 868963 1 MILLIGRAMS TWICE A DAY ORAL 03/29 Mesylate 1MG 13:00 Oral Tablet Prescription Detail TAKE 1 MILLIGRAMS ORAL TWICE A DAY Gabapentin 300MG 607474 600 MILLIGRAMS TWICE A DAY ORAL 03/29/2019 13:00 Oral Capsule Prescription Detail TAKE 600 MILLIGRAMS ORAL TWI CE A DAY Medications Administered During Visit Unknown or Not Available. Encounters Encounter Diagnosis Diagnosis Code Start Date Anxiety disorder, unspecified F419 03/13/2020 Social History Smoking Status Code Start Date End Date Never smoker 287522030 Patient Decision Aids Unknown or Not Available. Discharge Instructions [facility] were [facility] on 03/13/2020 13:57 with a principal diagnosis of Anxiety disorder, unspecifi ed You were discharged from [facility] on 03/13/2020 17:42 Should you have any [...]
--- OUTSIDE RECORDS SUMMARY | 2022-07-19 14:53 | XMS_ITS | CCD ---
:1980 Author Care Team Providers Name Role Phone ITZ MORAES Attending Physician Unavailable ITZ MORAES Er Physician 1 Unavailable Vital Signs Unknown or Not Available. Allergies Allergy Code Allergy Type Reaction Status PENICILLINS (CLASS) 31781 Drug allergy Active SULFA (sulfonamide) 0 Drug allergy Active AMOXICILLIN 723 Drug allergy Active Procedures Unknown or Not Available. History of Immunizations Unknown or Not Available. Problems Problem Code Start Date Resolved Date Status Renal stone 17789924 03/28/2019 Active Right upper quadrant pain 268101271 01/01/2016 Ac tive Disorder of gallbladder 23232800 01/01/2016 Acti ve Bipolar disorder 72609351 Active Hypothyroidism 17031616 Active Depression 49258235 Active Results Unknown or Not Available. Active Medications Medication Code Dose Units Frequency Route Modification Start Date/Time Benztropine 062378 1 MILLIGRAMS TWICE A DAY ORAL 03/29 Mesylate 1MG 13:00 Oral Tablet Prescription Detail TAKE 1 MILLIGRAMS ORAL TWICE A DAY Gabapentin 300MG 417013 600 MILLIGRAMS TWICE A DAY ORAL 03/29/2019 13:00 Oral Capsule Prescription Detail TAKE 600 MILLIGRAMS ORAL TWI CE A DAY Medications Administered During Visit Unknown or Not Available. Encounters Encounter Diagnosis Diagnosis Code Start Date Generalized anxiety disorder F411 06/14/2019 Social History Smoking Status Code Start Date End Date Never smoker 757285481 Patient Decision Aids Unknown or Not Available. Discharge Instructions You were admitted to [facility] on 06/14/2019 12:22 with a principal diagnosis of Generalized anxiety disorde r You were discharged from [facility] on 06/14/2019 15:38 Should you have any questions prior to d ischarge, please contact a member of your healthcare team. If you have left the ho spital and have any questions, please contact your primary care physician. Chief Complaint and Reason For Visit Chief Complaint Date of Onset Pain 06/14/2019 Function Status Unknown or Not Available. Plan of Care Unknown or Not Available. Referral/Transition of Care Unknown or Not Available.
--- OUTSIDE RECORDS SUMMARY | 2022-07-19 14:53 | XMS_ITS | CCD ---
:1980 Author Care Team Providers Name Role Phone PARK SWANSON Attending Physician Unavailable PARK SWANSON Er Physician 1 Unavailable Vital Signs Unknown or Not Available. Allergies Allergy Code Allergy Type Reaction Status PENICILLINS (CLASS) 14225 Drug allergy Active SULFA (sulfonamide) 0 Drug allergy Active AMOXICILLIN 723 Drug allergy Active Procedures Unknown or Not Available. History of Immunizations Unknown or Not Available. Problems Problem Code Start Date Resolved Date Status Renal stone 02795585 03/28/2019 Active Right upper quadrant pain 422074622 01/01/2016 Ac tive Disorder of gallbladder 16620107 01/01/2016 Acti ve Bipolar disorder 29819118 Active Hypothyroidism 67632716 Active Depression 83038574 Active Results Unknown or Not Available. Active Medications Medication Code Dose Units Frequency Route Modification Start Date/Time Benztropine 703433 1 MILLIGRAMS TWICE A DAY ORAL 03/29 Mesylate 1MG 13:00 Oral Tablet Prescription Detail TAKE 1 MILLIGRAMS ORAL TWICE A DAY Gabapentin 300MG 830730 600 MILLIGRAMS TWICE A DAY ORAL 03/29/2019 13:00 Oral Capsule Prescription Detail TAKE 600 MILLIGRAMS ORAL TWI CE A DAY Medications Administered During Visit Unknown or Not Available. Encounters Encounter Diagnosis Diagnosis Code Start Date Generalized anxiety disorder F411 04/26/2019 Social History Smoking Status Code Start Date End Date Never smoker 705147411 Patient Decision Aids Unknown or Not Available. Discharge Instructions You were admitted to [facility] on 04/26/2019 14:14 with a principal diagnosis of Generalized anxiety disorde r You were discharged from [facility] on 04/26/2019 16:37 Should you have any [...]
--- OUTSIDE RECORDS SUMMARY | 2022-07-19 14:53 | XMS_ITS | CCD ---
:1980 Author Care Team Providers Name Role Phone POOJA RODARTE Attending Physician Unavailable POOJA RODARTE Er Physician 1 Unavailable Vital Signs Unknown or Not Available. Allergies Allergy Code Allergy Type Reaction Status PENICILLINS (CLASS) 40130 Drug allergy Active SULFA (sulfonamide) 0 Drug allergy Active AMOXICILLIN 723 Drug allergy Active Procedures Unknown or Not Available. History of Immunizations Unknown or Not Available. Problems Problem Code Start Date Resolved Date Status Renal stone 64063316 03/28/2019 Active Right upper quadrant pain 799271501 01/01/2016 Ac tive Disorder of gallbladder 08580726 01/01/2016 Acti ve Bipolar disorder 70137361 Active Hypothyroidism 34797745 Active Depression 04928168 Active Results Unknown or Not Available. Active Medications Medication Code Dose Units Frequency Route Modification Start Date/Time Benztropine 570823 1 MILLIGRAMS TWICE A DAY ORAL 03/29 Mesylate 1MG 13:00 Oral Tablet Prescription Detail TAKE 1 MILLIGRAMS ORAL TWICE A DAY Gabapentin 300MG 864153 600 MILLIGRAMS TWICE A DAY ORAL 03/29/2019 13:00 Oral Capsule Prescription Detail TAKE 600 MILLIGRAMS ORAL TWI CE A DAY Medications Administered During Visit Unknown or Not Available. Encounters Encounter Diagnosis Diagnosis Code Start Date Anxiety disorder, unspecified F419 03/14/2020 Social History Smoking Status Code Start Date End Date Never smoker 350254364 Patient Decision Aids Unknown or Not Available. Discharge Instructions [facility]2020 09:33 with a principal diagnosis of Anxiety disorder, unspecifi ed [facility]2020 10:22 Should you have any [...]
--- OUTSIDE RECORDS SUMMARY | 2022-07-19 14:53 | XMS_ITS | CCD ---
:1980 Author Care Team Providers Name Role Phone PARK SWANSON Attending Physician Unavailable PARK SWANSON Er Physician 1 Unavailable Vital Signs Unknown or Not Available. Allergies Allergy Code Allergy Type Reaction Status PENICILLINS (CLASS) 79905 Drug allergy Active SULFA (sulfonamide) 0 Drug allergy Active AMOXICILLIN 723 Drug allergy Active Procedures Unknown or Not Available. History of Immunizations Unknown or Not Available. Problems Problem Code Start Date Resolved Date Status Renal stone 64791839 03/28/2019 Active Right upper quadrant pain 120367056 01/01/2016 Ac tive Disorder of gallbladder 42099507 01/01/2016 Acti ve Bipolar disorder 00159574 Active Hypothyroidism 70364944 Active Depression 71364527 Active Results Active Medications Medication Code Dose Units Frequency Route Modification Start Date/Time Benztropine 475779 1 MILLIGRAMS TWICE A DAY ORAL 03/29 Mesylate 1MG 13:00 Oral Tablet Prescription Detail TAKE 1 MILLIGRAMS ORAL TWICE A DAY Gabapentin 300MG 243713 600 MILLIGRAMS TWICE A DAY ORAL 03/29/2019 13:00 Oral Capsule Prescription Detail TAKE 600 MILLIGRAMS ORAL TWI CE A DAY Medications Administered During Visit Unknown or Not Available. Encounters Encounter Diagnosis Diagnosis Code Start Date Other chronic postprocedural pain G8928 2018 Social History Smoking Status Code Start Date End Date Never smoker 526261114 Patient Decision Aids Unknown or Not Available. Discharge Instructions [facility] on 04/19/2019 14:52 with a principal diagnosis of Other chronic postprocedura l pain [facility] 21:52 Should you have any [...]
--- OUTSIDE RECORDS SUMMARY | 2022-07-19 14:54 | XMS_ITS | Continuity of Care Document ---
:1980 Author Organization Psych Address Unavailable , Care Team Providers Name Role Phone DEE YANG Primary Care Physician [phone] Encounter Date(s): 04/09/22 - 04/17/22 [address] [place], [place] [address] - Encounter Diagnosis PTSD (post-traumatic stress disorder) (Discharge Diagnosis) - 04/10/22 Bipolar disorder current episode depressed (Discharge Diagnosis) - 04/10/22 OCD (obsessive compulsive disorder) (Discharge Diagnosis) - 04/10/22 Discharge Disposition: Home or Self Care Attending Physician: BALDEMAR MORAN MD Admitting Physician: BALDEMAR MORAN MD Allergies, Adverse Reactions, Alerts Substance Reaction Severity Status amoxicillin Anaphylactic reaction Active penicillin Anaphylactic reaction Active sulfa drugs Active Assessment and Plan Extracted from: Title: Physician Progress Note - Psychiatric Author: Silke Hussein, MARK Date: 04/16/22 jerky movements and chorea improved tod ay. He is less isolative and able to attend groups. States he feels less anxious and more hopeful. Records received from outpatient bellows charger assembler. Patient has chawla d several past psychiatric diagnosis inc luding: Bipolar 1 disorder, Bipolar ll disorder, schizoaffective disorder, SHERRIE, ADHD, OCD, and PTSD. He has tried multiple psychotropic medications and had trial of ECT. He is unsure if any have been be neficial. 1.??Bipolar disorder current episode dep ressed 2.??PTSD (post-traumatic stress disorde r) 3.??OCD (obsessive compulsive disorder) Orders: busPIRone, 10 mg = 1 tab(s), Tab, Oral, TID, Start date 04/16/22 14:00:00 EDT, Routine clonazePAM, 1 mg = 1 tab(s), Tab, Oral, TID, Start date 04/16/22 14:00:00 EDT, Routine Inpatient acetaminophen, 1000 mg= 2 tab(s), Oral, q6hr, PRN busPIRone, 10 mg= 1 tab(s), Oral, TID Fluarix Quadrivalent, 0.5 mL, IM, Befor e Discharge gabapentin, 400 mg= 1 cap(s), Oral, qHS KlonoPIN, 1 mg= 1 tab(s), Oral, TID lactobacillus acidophilus oral tablet, 1 tab(s), Oral, qAM melatonin, 6 mg= 2 tab(s), Oral, qHS Milk of Magnesia, 30 mL, Oral, Daily, P RN Mylanta, 30 mL, Oral, QID, PRN prazosin, 4 mg= 4 cap(s), Oral, qHS Home No active home medications ?? I certify that inpatient psychiatric hos pital admission is medically necessary for treatment which could reasonably be expected to improve the patient's condition: _y In need of ILOC due to:_recent SI, debil itating anxiety Is the patient involuntary? _n Did the patient receive a court order fo r involuntary medication? n_ ?? Treatment Plan Discussed and Reviewed Patient:_y Receiving active treatment through medic ation, individual, group, and milieu therapy would like discharge home tomorrow Extracted from: Title: Physician Progress Note - Psychiatric Author: Silke Hussein, MASTER TAX ADVISOR Date: 04/15/22 Patient reports improved anxiety on cur rent medication regimen. Continue to supply tylenol for symptoms of pain. We are awaiting diagnostic genetic testing to determine best placement and next steps to develop an effective plan of care. 1.??Bipolar disorder current episode dep ressed 2.??PTSD (post-traumatic stress disorde r) 3.??OCD (obsessive compulsive disorder) Inpatient acetaminophen, 1000 mg= 2 tab(s), Oral, q6hr, PRN busPIRone, 5 mg= 0.5 tab(s), Oral, TID Fluarix Quadrivalent, 0.5 mL, IM, Befor e Discharge gabapentin, 400 mg= 1 cap(s), Oral, qHS KlonoPIN, 1.5 mg= 3 tab(s), Oral, TID lactobacillus acidophilus oral tablet, 1 tab(s), Oral, qAM melatonin, 6 mg= 2 tab(s), Oral, qHS Milk of Magnesia, 30 mL, Oral, Daily, P RN Mylanta, 30 mL, Oral, QID, PRN prazosin, 4 mg= 4 cap(s), Oral, qHS Home No active home medications ?? I certify that inpatient psychiatric hos pital admission is medically necessary for treatment which could reasonably be expected to improve the patient's condition: _y In need of ILOC due to:_ recent SI, diag nostic evaluation. Is the patient involuntary? _n ?? Treatment Plan Discussed and Reviewed wi th Patient:_y Receiving active treatment through medic ation, individual, group, and milieu therapy Extracted from: Title: Physician Progress Note - Psychiatric Author: Silke Hussein APRN Date: 04/14/22 awaiting blood work results. Patient re gema unchanged, c/o severe anxiety. denies SI 1.??Bipolar disorder current episode dep ressed 2.??PTSD (post-traumatic stress disorde r) 3.??OCD (obsessive compulsive disorder) Orders: Copper Level-Benedict Miscellaneous Benedict Test Inpatient acetaminophen, 1000 mg= 2 tab(s), Oral, q6hr, PRN busPIRone, 5 mg= 0.5 tab(s), Oral, TID Fluarix Quadrivalent, 0.5 mL, IM, Befor e Discharge gabapentin, 400 mg= 1 cap(s), Oral, qHS KlonoPIN, 1.5 mg= 3 tab(s), Oral, TID lactobacillus acidophilus oral tablet, 1 tab(s), Oral, qAM melatonin, 6 mg= 2 tab(s), Oral, qHS Milk of Magnesia, 30 mL, Oral, Daily, P RN Mylanta, 30 mL, Oral, QID, PRN prazosin, 4 mg= 4 cap(s), Oral, qHS Home No active home medications I certify that inpatient psychiatric ho spital admission is medically necessary for treatment which could reasonably be expected to improve the patient's condition: _y In need of ILOC due to:_debilitating anx iety. recent SI Is the patient involuntary? _n Did the patient receive a court order fo r involuntary medication? _n ?? Treatment Plan Discussed and Reviewed wi th Patient:_ Receiving active treatment through medic ation, individual, group, and milieu therapy TBD Extracted from: Title: Physician Progress Note - Psychiatric Author: Silke Hussein APRN Date: 04/13/22 Continue to??look into??abnormal moveme nts.??Will add clonazepam??1.5mg TID, and buspar 5mg TID to target anxiety and perhaps provide some relief from the involuntary movements. Copper level, and HTT g faby labs ordered to rule out Wilsons dis ease and Huntingtons disease respectively. Encourage increased fluid intake. Dr. Cazares consulted on the complexity of this case and agrees with the treatment plan. 1.??Bipolar disorder current episode dep ressed 2.??PTSD (post-traumatic stress disorde r) 3.??OCD (obsessive compulsive disorder) Orders: busPIRone, 5 mg = 0.5 tab(s), Tab, Oral, TID, Start date 04/13/22 14:00:00 EDT, Routine clonazePAM, 1.5 mg = 3 tab(s), Tab, Ora l, TID, Start date 04/13/22 14:00:00 EDT, Routine Copper Level-Benedict Miscellaneous Benedict Test Inpatient acetaminophen, 1000 mg= 2 tab(s), Oral, q6hr, PRN busPIRone, 5 mg= 0.5 tab(s), Oral, TID Fluarix Quadrivalent, 0.5 mL, IM, Befor e Discharge gabapentin, 400 mg= 1 cap(s), Oral, qHS KlonoPIN, 1.5 mg= 3 tab(s), Oral, TID lactobacillus acidophilus oral tablet, 1 tab(s), Oral, qAM melatonin, 6 mg= 2 tab(s), Oral, qHS Milk of Magnesia, 30 mL, Oral, Daily, P RN Mylanta, 30 mL, Oral, QID, PRN prazosin, 4 mg= 4 cap(s), Oral, qHS Home No active home medications ?? I certify that inpatient psychiatric hos pital admission is medically necessary for treatment which could reasonably be expected to improve the patient's condition: _y In need of ILOC due to:_suicidal ideatio n Is the patient involuntary? _n ? Treatment Plan Discussed and Reviewed wi th Patient:_y Receiving active treatment through medic ation, individual, group, and milieu therapy Extracted from: Title: Physician Progress Note - Psychiatric Author: Silke Hussein APRN Date: 04/12/22 patient noted to have chorea in upper b josué, limbs with jerky movements and writhing movements, gait is rigid and stiff with toes curled inward. Patient states his uncle has Galo syndrome, denies hu ntington's disease in family. TSH WNL, C K ordered to rule out NMS. will stop medications that can cause anticholinergic effects and medications that can contribute to NMS. MRI w/wo contrast ordered. Sarah lara denies pain or discomfort other elvira n feeling anxious. He denies SI/HI. will continue to monitor. 1.??Bipolar disorder current episode dep ressed 2.??PTSD (post-traumatic stress disorde r) 3.??OCD (obsessive compulsive disorder) Orders: Creatine Kinase MRI Brain w/ + w/o Contrast - [id number] Inpatient acetaminophen, 1000 mg= 2 tab(s), Oral, q6hr, PRN Fluarix Quadrivalent, 0.5 mL, IM, Befor e Discharge gabapentin, 400 mg= 1 cap(s), Oral, qHS lactobacillus acidophilus oral tablet, 1 tab(s), Oral, qAM Latuda, 20 mg= 0.5 tab(s), Oral, Daily with Supper LORazepam, 0.5 mg= 1 tab(s), Oral, BID, PRN melatonin, 6 mg= 2 tab(s), Oral, qHS Milk of Magnesia, 30 mL, Oral, Daily, P RN Mylanta, 30 mL, Oral, QID, PRN prazosin, 4 mg= 4 cap(s), Oral, qHS Home No active home medications ?? I certify that inpatient psychiatric hos pital admission is medically necessary for treatment which could reasonably be expected to improve the patient's condition: _y In need of ILOC due to:_debilitating anx iety. recent SI Is the patient involuntary? _n Did the patient receive a court order fo r involuntary medication? _n ?? Treatment Plan Discussed and Reviewed wi Patient:_y Receiving active treatment through medic ation, individual, group, and milieu therapy TBD Extracted from: Title: History & Physical - Psychiatric Author: KEITH HERNANDEZ NP Date: 04/10/22 Reason for Admission Suicidal thoughts. Substance Abuse History Patient denies. Mental Status Exam General appearance: Laying in bed,??hea rt,??appears tense, adequate eye contact Mood and Affect:??Anxious,??fairly rest ricted Gait:??Laying in bed?? Muscle strength and tone:??Mildly restl ess legs,??no evidence of tremor??or weakness Speech:??Within normal limits Thought content:??Denies SI today thoug h feels hopeless and helpless; denies HI/AVH, no evidence of delusion or paranoia Thought process:??Organized Orientation:??X3 Language:??Able to verbally articulate Attention span and concentration:??Adeq uate for interview Fundamentals of knowledge:??Average Associations:??Intact Recent and Remote memory:??Intact Judgement and Insight:??Fair/fair ? Assessment/Plan 41-year-old male with history of??self- reported??bipolar, PTSD,??OCD, anxiety.?? Patient??is an[facility] [place] [facility] services??of whom reported??suicidal thoughts wit h increasing depressed mood, decreased e nergy,??increased sleep, decreased appetite, feelings of hopelessness and helplessness, as well as anhedonia??for the past 3 weeks?? He reports history of bipolar spectrum with??a self-described history of??possible hypomanic episode??of which did not necessitate inpatient care or??psychosis.?? He describes obsessive thoughts and previous diagnosis of OCD.?? Anx iety remains elevated and he suffers fro m??frequent flashbacks and nightmares secondary to trauma??of which correlate to his??PTSD. ??Patient has had numerous inpatient admissions for depression and agatha cidal thoughts. ??It appears that patien t is suffering from a major depressive episode, recurrent,??and??is most likely on the bipolar spectrum??related to type II of which presents with lower risk for manic switch with antidepressant therapy compared to type 1. ?? Patient's current medication list is ex tensive??with upwards of??6 psychiatric medications of which include gabapentin for anxiety, fluvoxamine for depression/OCD,??Depakote for??mood stabilization, Se roquel for mood stabilization, prazosin for??PTSD, Ativan??for anxiety.?? Patient also receives addition of 0.5 mg as needed??Ativan for breakthrough anxiety. ??Extensive discussion with patient regardi ng??streamlining of medications and cons olidation to reduce polypharmacy regimen??and mitigate potential adverse reactions.?? Patient is receptive to medication modification.?? He reports history of goo d effect with Latuda??of which he did no t continue secondary to lack of insurance/finances.?? He was unclear of his prior dose and the exact timeline.?? We had also discussed??the potential use of Abili fy??for mood stabilization??as well as O CD-like features.?? We settled on??resumption of Latuda??starting at 20 mg??of which patient was educated to take with meals to ensure adequate??calorie intake fo r absorption.?? Latuda will replace Depa kote??as well as Seroquel.?? We will continue fluvoxamine for now??at 50 mg??of which was recently increased from 25 mg by his outpatient prescriber??within the p ast week.?? Education provided on??Ativa n, including risk for dependency??and possible cognitive impairment with long-term use.?? Patient was agreeable to discontinue the 1 mg scheduled daily Ativan??an d is aware that he will have a 0.5 twice daily as needed??dose available for breakthrough anxiety as he??adjusts to??medication adjustments on unit.?? We will resume patient's prazosin 4 mg??as well as his gabapentin??400 mg at night which wa s recently reduced from??3 times daily dosing by his outpatient prescriber.?? The reason for this being that??it can still be an effective medication for anxiety management as well as for sleep,??of whi ch patient reports difficulty secondary to his anxiety.?? Further adjustments??to medication regimen may be indicated moving forward??in regard to symptom management. ?? Baseline??labs??will be ordered for ton ight??and reviewed tomorrow.?? In patient's current condition, inpatient care is warranted for safety and stabilization. ?? The patient was admitted on a voluntary basis and placed on 15 minute checks for safety and stabilization. Pt will be evaluated by nursing, social work and occupational therapy.??Pt will be enrolled in individual, group and milieu therapies. We will contact collaterals and outpatient providers for continuity of care and will work with patient on discharge planning. ? Diagnosis 1.??Bipolar disorder current episode de pressed ?- hx of hypomanic episode 2.??PTSD (post-traumatic stress disorde r) ?- per hx 3.??OCD (obsessive compulsive disorder) ? - per hx Orders: gabapentin, 400 mg = 1 cap(s), Cap, Ora l, qHS, Start date 04/10/22 21:00:00 EDT, Routine hydrOXYzine, 50 mg = 1 cap(s), Cap, Ora l, TID PRN anxiety, Start date 04/10/22 15:38:00 EDT, Routine LORazepam, 0.5 mg = 1 tab(s), Tab, Oral , BID PRN agitation/anxiety, Start date 04/10/22 15:08:00 EDT, Routine lurasidone, 20 mg = 0.5 tab(s), Tab, Or al, Daily with Supper, Start date 04/10/22 17:00:00 EDT, Routine prazosin, 4 mg = 4 cap(s), Cap, Oral, q HS, Start date 04/10/22 21:00:00 EDT, Routine Glucose Level Lipid Panel Addendum by KEITH AVELAR NP on April 10, 2022 7:20:39 PM EDT EKG performed at [facility] was w nl. Diagnostic Tests PendingMiscellaneous Aquino Test 04/13/22 Functional Status 04/17/22 ADLs Independent Immunizations Given and Recorded Vaccine Date Status Refusal Reason influenza virus vaccine, inactivated 04/17/22 Given Medications busPIRone 10 mg oral tablet 10 mg = 1 tab(s), Oral, TID, # 90 tab(s), 0 Refill(s), Pharmacy: [id number] Start Date: 04/17/22 Stop Date: 05/17/22 Status: Orderedgabapentin 400 mg oral capsule 400 mg = 1 cap(s), Oral, qHS, # 30 cap(s), 0 Refill(s), Pharmacy: [id number] Start Date: 04/17/22 Stop Date: 05/17/22 Status: OrderedKlonoPIN 1 mg oral tablet 1 mg = 1 tab(s), Oral, BID, 0 Refill(s) Start Date: 04/17/22 Status: Orderedlactobacillus acidophilus oral capsule Oral, qAM, 0 Refill(s) Start Date: 04/17/22 Status: Orderedmelatonin 3 mg oral tablet 6 mg = 2 tab(s), Oral, qHS, 0 Refill(s) Start Date: 04/17/22 Status: Orderedprazosin 1 mg oral capsule 4 mg = 4 cap(s), Oral, qHS, # 120 cap(s), 0 Refill(s), Pharmacy: [id number] Start Date: 04/17/22 Stop Date: 05/17/22 Status: Ordered Mental Status 04/17/22 Level of Consciousness Alert Orientation Assessment Oriented x 4 Results Laboratory List Name Date Copper Level-Aquino 04/13/22 Creatine Kinase (CK) 04/12/22 .Estimated Glomerular Filtration Rate 04/11/22 CBC 04/11/22 Comprehensive Metabolic Panel 04/11/22 Glucose Level 04/11/22 Lipid Panel (Fasting Lipid Profile) 04/11/22 Thyroid Rachel 04/11/22 Valproic Acid Level 04/11/22 Vitamin D Total (25 Hydroxy) 04/11/22 Most recent to oldest [Reference Range]: 1 2 AGAP 6 *NA* (04/11/22 7:15 AM) LDL 171 mg/dL *NA* (04/11/22 7:15 AM) Ldl/Hdl 3.9 mg/dL *NA* (04/11/22 7:15 AM) Chol/Trig 1.90 mg/dL *NA* (04/11/22 7:15 AM) VLDL 25 mg/dL *NA* (04/11/22 7:15 AM) A/G Ratio 1.0 *NA* (04/11/22 7:15 AM) BUN/Creat Ratio 16 *NA* (04/11/22 7:15 AM) RBC [4.50-5.90 x10(6)/mcL] 5.28 x10(6)/mcL (04/11/22 7:15 AM) RDW [11.5-14.5 %] 12.4 % (04/11/22 7:15 AM) Sodium Level [136-145 mmol/L] 139 mmol/L (04/11/22 7:15 AM) Total Protein [6.4-8.2 gm/dL] 7.3 gm/dL (04/11/22 7:15 AM) Trig 124 mg/dL *NA* (04/11/22 7:15 AM) TSH [0.360-3.740 mcIU/mL] 1.320 mcIU/mL (04/11/22 7:15 AM) AST [15-37 IU/L] 14 IU/L *LOW* (04/11/22 7:15 AM) Bili Total [0.20-1.00 mg/dL] 0.51 mg/dL (04/11/22 7:15 AM) Chol 240 mg/dL *NA* (04/11/22 7:15 AM) Total CK [39-308 IU/L] 91 IU/L (04/12/22 5:10 PM) CO2 [21-32 mmol/L] 31 mmol/L (04/11/22 7:15 AM) Albumin Level [3.4-5.0 gm/dL] 3.7 gm/dL (04/11/22 7:15 AM) Alk Phos [45-117 unit/L] 52 unit/L (04/11/22 7:15 AM) ALT [13-61 IU/L] 33 IU/L (04/11/22 7:15 AM) Hct [41.0-53.0 %] 48.1 % (04/11/22 7:15 AM) HDL 44 mg/dL *NA* (04/11/22 7:15 AM) Hgb [13.9-16.3 gm/dL] 16.4 gm/dL *HI* (04/11/22 7:15 AM) MCH [26.0-34.0 pg] 31.1 pg (04/11/22 7:15 AM) MCHC [31.0-37.0 gm/dL] 34.1 gm/dL (04/11/22 7:15 AM) MCV [80-100 fL] 91 fL (04/11/22 7:15 AM) MPV [9.2-12.7 fL] 9.8 fL (04/11/22 7:15 AM) Glucose Level [74-106 mg/dL] 82 mg/dL 82 mg/dL (04/11/22 7:15 AM) (04/11/22 7:15 AM) Platelet [150-350 x10(3)/mcL] 221 x10(3)/mcL (04/11/22 7:15 AM) Potassium Level [3.5-5.1 mmol/L] 4.1 mmol/L (04/11/22 7:15 AM) Valproic Acid Level [50.0-100.0 mcg/mL] 19.9 mcg/mL *LOW* (04/11/22 7:15 AM) WBC [4.5-11.0 x10(3)/mcL] 5.8 x10(3)/mcL (04/11/22 7:15 AM) BUN [7-18 mg/dL] 22 mg/dL *HI* (04/11/22 7:15 AM) Calcium Level [8.5-10.1 mg/dL] 9.0 mg/dL (04/11/22 7:15 AM) Chloride [98-107 mmol/L] 106 mmol/L (04/11/22 7:15 AM) eGFR AA >60 mL/min/1.73 m2 *NA* (04/11/22 7:15 AM) eGFR LENNOX 56 mL/min/1.73 m2 *NA* (04/11/22 7:15 AM) NRBC % [0.0-0.2 %] 0.0 % (04/11/22 7:15 AM) Osmol Calculated 280 mOsm/kg *NA* (04/11/22 7:15 AM) Vitamin D Total (25 Hydroxy) [30.0-100.0 61.8 ng/mL ng/mL] (04/11/22 7:15 AM) Copper Lvl-Aquino [73-129 mcg/dL] 71 mcg/dL 1 *LOW* (04/13/22 3:25 PM) Creatinine [0.6-1.3 mg/dL] 1.4 mg/dL *HI* (04/11/22 7:15 AM) 1Result Comment: ADDITIONAL INFORMATION This test was developed and its performance characteristics determined by [facility] in a manner consistent with CLIA requirements. This test has not been cleared or approved by the U.S. Food and Drug Administration. Test Performed by: [facility] [address] [place] [address] Chemistry Physics Teacher: Jorge Sharpe M.D. Ph.D.; CLIA# [id number] Reports Exam Date Time Procedure Performing Provider Status 04/12/22 8:41 PM MRI Brain w/o Contrast Modified MR Brain WO Contrast [id number] PROCEDURE: MR Brain WO Contrast [id number] CLINICAL INDICATION: chorea movements COMPARISON: None. TECHNIQUE: Multiplanar multisequence images of the brain were performed without contrast. FINDINGS: CSF spaces: The ventricles and basal cisterns are normal and symmetric. There is no hydrocephalus. There is no extra-axial fluid collection. [place] matter: Cortical and deep tejada matter signal is normal. There is no infarct, mass or hemorrhage. Diffusion weighted sequence is negative for evidence of recent infarction. White matter: Subcortical and deep white matter is normal in signal. No evidence of microvascular ischemic disease. No demyelinating changes are evident. The major intracranial vascular structures are patent. The visible orbits and paranasal sinuses are unremarkable. No skeletal abnormalities are evident. IMPRESSION: No significant abnormality. Electronically Signed by: Stephen Mcmanus MD 04/13/2022 9:03 AM Vital Signs Most recent to oldest 1 2 3 [Reference Range]: Temperature Temporal Artery 35.8 DegC 36.4 DegC 36.5 DegC [36.3-37.8 DegC] *LOW* (04/16/22 7:37 AM) (04/15/22 7: 38 AM) (04/17/22 7:49 AM) Peripheral Pulse Rate 85 bpm 93 bpm 69 bpm [60-100 bpm] (04/17/22 7:49 AM) (04/16/22 7:37 AM) (04/15/22 7:38 AM) Respiratory Rate [14-20 16 br/min 20 br/min 16 br/mi n br/min] (04/17/22 7:49 AM) (04/12/22 8:00 PM) (04/09/22 7 :32 PM) Blood Pressure [90-140/60-90 125/82 mmHg 116/63 mmHg 114 /80 mmHg mmHg] (04/17/22 7:49 AM) (04/16/22 7:37 AM) (04/15/22 7:38 AM) Blood Pressure 131/94 mmHg (04/09/22 7:32 PM) Mean Arterial Presure, 106 mmHg Manual (04/09/22 7:32 PM) Social History Social History Type Response Sex Male Hospital Discharge Instructions Patient [id number]/15/2022 10:29:53Bipolar 2 DisorderBipolar 2 Disorder Bipolar 2 disorder is a mental health disorder in which a person has episodes of emotional highs andepisodes of emotional lows, or depression. In bipolar 2 disorder, the episodes of emotional highs are less extreme and do not last as long as in bipolar 1 disorder. These highs are called hypomania. People with bipolar 2 disorder have had at least one episode of hypomania (hypomanic episode) in their lives, which is usually followed by a depressive episode. Some people may have cycles of hypomanicand depressive episodes. Some people with bipolar 2 disorder may lead a very normal life between episodes. What are the causes? The cause of this condition is not known. What increases the risk? The following factors may make you more likely to develop this condition: ??? Having a family member with the disorder. ??? Having an imbalance of certain chemicals in the brain (neurotransmitters). ??? Experiencing stress, such as illness, divorce, financial problems, or a . ??? Having certain conditions that affect the brain or spinal cord (neurologic conditions). ??? Having had a brain injury (trauma). What are the signs or symptoms? Symptoms of hypomania include: ??? Very high self-esteem or self-confidence. ??? Decreased need for sleep. ??? Unusual talkativeness. Speech may be very fast. ??? Racing thoughts, with quick shifts between topics that may or may not be related (flight of ideas). ??? Change in ability to concentrate. Some people may have better focus, and others may not be able to focus at all. ??? Increased agitation. This could be pacing, squirming, fidgeting, or finger and toe tapping. ??? Impulsive behavior and poor judgment. This may result in high-risk activities, such as: ??? Being sexual with people you normally wouldn't be sexual with. ??? Spending money you have borrowed on things you don't need. Symptoms of depression include: ??? Extreme degrees of sadness, uncontrollable crying, hopelessness, worthlessness, or numbness. ??? Sleep problems, such as insomnia, waking early, or sleeping too much. ??? No longer enjoying things you used to enjoy. ??? Isolation. You may often spend time alone. ??? Lack of energy or moving more slowly than normal. ??? Trouble making decisions. ??? Changes in appetite, such as eating too much or not eating. ??? Thoughts of , or wanting to harm yourself. Sometimes, you may have a mix of symptoms of hypomania and depression at the same time. Stress can often trigger these symptoms. How is this diagnosed? This condition may be diagnosed based on: ??? Emotional episodes. ??? Medical history. ??? Use of alcohol, drugs, and prescription medicines. Certain medical conditions and substances cancause symptoms that seem like bipolar disorder. This is called secondary bipolar disorder. Your health care provider may ask you to take a short test. This helps to understand your symptoms. You may also be asked to see a mental health specialist for further evaluation or to start treatment. How is this treated? This condition is a long-term (chronic) illness. It is often managed with ongoing treatment rather than treatment only when symptoms occur. A combination of treatments is the main approach. Treatment may include: ??? Psychotherapy. Some forms of talk therapy, such as cognitive behavioral therapy (CBT) and familytherapy, can help with learning to manage bipolar disorder. ??? Psychoeducation. This helps you and others understand how this disorder is managed. Include friends and family in educational sessions so they learn how best to support you. ??? Methods of managing your condition, such as journaling or relaxation exercises. Relaxation exercises include: ??? Yoga. ??? Meditation. ??? Deep breathing. ??? Lifestyle changes, such as: ??? Limiting alcohol and drug use. ??? Exercising regularly. ??? Structuring when you go to bed and when you get up. ??? Eating a healthy diet. ??? Medicine. Medicine can be prescribed by a health care provider who specializes in treating mental health disorders (psychiatrist). Medicines called mood stabilizers are usually prescribed. If symptoms occur during treatment with a mood stabilizer, other medicines may be added. Follow these instructions at home: Activity ??? Return to your normal activities as told by your health care provider. ??? Find activities that you enjoy, and make time to do them. ??? Exercise regularly as told by your health care provider. Lifestyle ??? Follow a set daily schedule. ??? Eat a healthy diet that includes fresh fruits and vegetables, whole grains, low-fat dairy, and lean meat. ??? Get at least 7???8 hours of sleep each night. ??? Avoid using products that contain nicotine or tobacco. If you want help quitting, ask your health care provider. ??? Do not use drugs. Alcohol use ??? Do not drink alcohol if: ??? Your health care provider tells you not to drink. ??? You are , may be , or are planning to become . ??? If you drink alcohol: ??? Limit how much you use to: ??? 0???1 drink a day for women. ??? 0???2 drinks a day for men. ??? Be aware of how much alcohol is in your drink. In the [place] one drink equals one 12 oz bottle ofbeer (355 mL), one 5 oz glass of wine (148 mL), or one 1?? oz glass of hard liquor (44 mL). General instructions ??? Take rqnn-lwz-goblotv and prescription medicines only as told by your health care provider. You may think about stopping your medicine, but it is very important to take your medicine as prescribed. ??? Consider joining a support group. Your health care provider may be able to recommend one. ??? Talk with your family and friends about your treatment goals and how they can help. ??? Keep all follow-up visits as told by your health care provider. This is important. Where to find more information ??? National [place] on Mental Illness: www.debi.org ??? National [place] of Mental Health: www.nimh.nih.gov Contact a health care provider if: ??? Your symptoms get worse, or your loved ones tell you that your symptoms are getting worse. ??? You have uncomfortable side effects from your medicine. ??? You have trouble sleeping. ??? You have trouble doing daily activities. ??? You feel unsafe in your surroundings. ??? You are self-medicating with alcohol or drugs. Get help right away if: ??? You have new symptoms. ??? You have thoughts about harming yourself or others. ??? You are considering suicide. If you ever feel like you may hurt yourself or others, or have thoughts about taking your own life, get help right away. You can go to your nearest emergency department or call: ??? Your local emergency services (911 in the [place] ??? A suicide crisis helpline, such as the National Suicide Prevention Lifeline at . This is open 24 hours a day. Summary ??? Bipolar 2 disorder is a lifelong mental health disorder in which a person has episodes of hypomania and depression. ??? This disorder is mainly treated with a combination of talk therapy, education, strategies for managing the condition, and medicines. ??? Talk with your family and friends about your treatment goals and how they can help. ??? Get help right away if you are considering suicide. This information is not intended to replace advice given to you by your health care provider. Make sure you discuss any questions you have with your health care provider. Document Revised: 11/22/2019 Document Reviewed: 12/04/2019 [employer] Patient Education ?? 2021 [employer] 04/17/2022 10:29:53Obsessive-Compulsive DisorderObsessive-Compulsive Disorder Obsessive-compulsive disorder (OCD) is a brain-based disorder. This type of disorder happens when parts of the brain cannot communicate well with each other. People with OCD have obsessions or compulsions, or both. Obsessions are unwanted and distressing thoughts, ideas, or urges that keep entering your mind. You may find yourself trying to ignore them. You may try to stop or undo them with a compulsion. Compulsions are repetitive physical or mental acts that you feel you have to do. They may reduce or prevent any anxiety, but in most cases, they do not help. Compulsions can take a lot of time to do, often more than one hour each day. They can interfere with personal relationships and normal activities at home, school, or work. OCD can begin in childhood, but it usually starts in young adulthood and continues throughout life. Many people with OCD also have depression or another mental health disorder. What are the causes? The cause of this condition is not known. What increases the risk? This condition is more likely to develop in: ??? People who have experienced trauma. ??? People who have a family history of OCD. ??? Women during and after . ??? Some children between the ages of 3 and 12 who have had a recent streptococcal infection. ??? People who have other mental health conditions. ??? People who misuse substances, such as alcohol, prescription medicines, or illegal drugs. What are the signs or symptoms? Symptoms of OCD include obsessions and compulsions. Most people with OCD have both of these, but some people with OCD have just one or the other. People with obsessions usually have a fear that something terrible will happen or that they will do something terrible. Common obsessions include: ??? Fear of contamination with germs, waste, or toxic substances. ??? Fear of making the wrong decision. ??? Violent or sexual thoughts or urges toward others. ??? Need for symmetry or exactness. Common compulsions include: ??? Excessive handwashing or bathing due to fear of contamination. ??? Checking things again and again to make sure you finished a task, such as making sure you lockeda door or unplugged a toaster. ??? Repeating an act or phrase again and again, sometimes a specific number of times, until it feelsright. ??? Arranging objects again and again to keep them in a certain order. ??? Having a very hard time making a decision and sticking to it. Everyone at times will repeat a behavior or check something again. However, people who have OCD feelthat they do not have any control over their repeat thoughts or compulsive behaviors. How is this diagnosed? OCD is diagnosed through an assessment by your health care provider. Your health care provider may: ??? Ask questions about any obsessions or compulsions you have and how they affect your life. ??? Ask about your medical history, prescription medicines, and drug use. Certain medical conditionsand substances can cause symptoms that are similar to OCD. ??? Refer you to a mental health specialist who will ask you questions and may give you tests to confirm this diagnosis. He or she will help you create a plan for treatment. How is this treated? OCD may be treated with: ??? Cognitive therapy. This is a form of talk therapy. The goal is to identify and change the irrational thoughts associated with obsessions. ??? Behavioral therapy. A type of behavioral therapy called exposure and response prevention is often used. In this therapy, you will be exposed to the distressing situation that triggers your compulsion and be prevented from responding to it. With repetition of this process over time, you will no longer feel the distress or need to perform the compulsion. ??? Self-soothing. Meditation, deep breathing, or yoga can help you manage the symptoms of anxiety and can help with how you think. ??? Medicine. Certain types of antidepressant medicine may help reduce or control OCD symptoms. Medicine is most effective when used with cognitive or behavioral therapy. Treatment usually involves a combination of therapy and medicines. For severe OCD that does not respond to talk therapy and medicine, brain surgery or electrical stimulation of specific areas of the brain may be considered. Examples of electrical stimulation are: ??? Deep brain stimulation (DBS). ??? Transcranial magnetic stimulation (TMS). ??? Transcranial direct current stimulation (tDCS). Follow these instructions at home: ??? Take sacs-jyr-juqvpaw and prescription medicines only as told by your health care provider. Do not start taking any new medicines unless your health care provider approves. ??? Consider joining a support group for people with OCD. Visit www.debi.org to learn about support groups. ??? Keep all follow-up visits as told by your health care provider. This is important. Where to find more information ??? International OCD Foundation: www.iocdf.org ??? National [place] on Mental Illness (DEBI): www.debi.org ??? Substance Abuse and Mental Health Services Administration (SAMHSA): www.samhsa.gov Contact a health care provider if: ??? You are not able to take your medicines as prescribed. ??? Your symptoms get worse. Get help right away if: ??? You have thoughts of suicide or thoughts about hurting yourself or others. If you ever feel like you may hurt yourself or others, or have thoughts about taking your own life, get help right away. Go to your nearest emergency department or: ??? Call your local emergency services (911 in the [place] ??? Call a suicide crisis helpline, such as the National Suicide Prevention Lifeline at . This is open 24 hours a day in the [place] ??? Text the Crisis Text Line at 526247 (in the [place] Summary ??? Obsessive-compulsive disorder (OCD) is a brain-based disorder. People with OCD have obsessions or compulsions, or both, and cannot control them. ??? OCD can interfere with personal relationships and normal activities at home, school, or work. ??? Treatment usually involves a combination of therapy and medicines. ??? Consider joining a support group for people with OCD. This information is not intended to replace advice given to you by your health care provider. Make sure you discuss any questions you have with your health care provider. Document Revised: 04/03/2020 Document Reviewed: 04/03/2020 [employer] Patient Education ?? 2021 [employer]. [facility]YDEN[employer] Discharge summary Silke Hussein APRN: PERFORM Event Display: Discharge Summary Authored Date: Discharge Summary Reason for Hospitalization suicidal ideation Discharge Diagnoses 1.??Bipolar disorder current episode depressed ?? 2.??PTSD (post-traumatic stress disorder) ?? 3.??OCD (obsessive compulsive disorder) Discharge Medication List Home Medications (6) Active busPIRone 10 mg oral tablet??10 mg = 1 tab(s), Oral, TID gabapentin 400 mg oral capsule??400 mg = 1 cap(s), Oral, qHS KlonoPIN 1 mg oral tablet??1 mg = 1 tab(s), Oral, BID for 7 days then Klonopin 1mg 1/2 tab BID for 7 days then 1/2 tab daily for 7 days then stop lactobacillus acidophilus oral capsule??, Oral, qAM melatonin 3 mg oral tablet??6 mg = 2 tab(s), Oral, qHS prazosin 1 mg oral capsule??4 mg = 4 cap(s), Oral, qHS Condition at Discharge improved. Patient denied suicidal ideation. reported feeling less anxious and much less depressed. states he feels more hopeful. He is able to shower, attend programming and interact with peers. He denies psychotic symptoms or manic symptoms. sleep improved Prognosis fair given numerous hospitalizations with debilitating depression/anxiety. Physician Discharge Instructions Discharge Patient Diet: Regular Depart Patient Activity Level Restrict: As Tolerated Follow Up Quiana Smith (silk printer) 04/20 @ 8:30am ROSENDO Cordova 05/04 @ 8:30am Adriel Jordan (PCP) 05/03 @ 3:30pm Discharge Disposition returned home with friend independently Hospital Course according to Keith Avelar's H&P note: This is a 41-year-old male with reported history of bipolar??disorder, PTSD??and anxiety.?? He reports??16 prior psychiatric admissions for depression and suicidal thoughts??with most recent being in December??2021 at the [facility].?? He recently moved from [place] to [place]??officially in January of this year.?Is currently residing??in [facility] and lives with a friend.?? He has established??outpatient providers including a prescriber and counselor??and underwent recent medication adjustments. ?? Patient reports increasing??depressed mood??with suicidal thoughts, hopelessness/helplessness,??decreased energy,??hypersomnia,??reduced appetite, and anhedonia??for the past 3 weeks.?? Patient reportssignificant trauma history growing up??with??several losses of close??relationships in his life.?Over the course of his life,??patient states that??his dog had ??(put to sleep)??though patient felt that??it was premature.?? Patient's uncle was previously caring for the dog in [place]??though due to??this person's increased medical needs he had to go to a penitentiary and could nolonger care for the dog, nor could patient.?? He states that??his dad had been taken off life support due to a stroke and . ??His grandfather had dementia and .?He does not??have a close relationship with??his mother and??is unaware of her current??status??at this time. ??He and his ex- had suffered through 3 miscarriages.?? He states that he was diagnosed??with bipolar di sorder??when he was 28 years old??as well as OCD.?? He reports having??what he described as a manic episode approximately 2 years ago??with symptoms being decreased need for sleep for??roughly 2 to 3 days, increased energy,??excessive spending (up to $1000 on clothes of which he ended up returning) aswell as increased sexual desire.?? Patient states that he??was not hospitalized for this episode??and did not experience symptoms of psychosis. ??Patient reports that this is not his typical baseline.?? He says he suffers from obsessive thoughts??related to underlying anxiety and trauma.?? Triggers for his recent SI he states were an accumulation of??stressors including??car trouble, unable to make it to his outpatient appointments,??difficulty with registering his car??in [place], while simultaneously suffering from??traumatic flashbacks and nightmares??and an overwhelming sense of hopelessness??with decreased desire to live.?? Patient denies history of suicidal??attempts??though states that thisis the closest he has ever been. ??Patient did not attempt to act on any plans??this time around.?? Historical SI had been diverted secondary to??patient's??judaism upbringing??stating I am a Sabianism.?? Patient denies active substance use.?? Denies symptoms of psychosis including audio and visual hallucinations.?? He reports obsessive thoughts??more so than ritualistic behaviors secondary to OCD.?? He has undergone recent medication adjustments with his outpatient team??and has an extensive medication list.?? He is accepting of inpatient care for safety and stabilization. ?? Patient continued to report high levels of anxiety that made it difficult for him to come out of hisroom. He presented with Chorea movements, stiff rigid gait and jerky movements. MRI of head completed. blood work ordered including genetic testing to rule out Milford's disease, copper level, and TSH. Still waiting for genetic testing results but patient did not want to stay in hospital for results. States he will get results to review with PCP once available. He was taken off anticholinergic medications as these may contribute to his movement disorder. Latuda was discontinued as patient c/o restless legs and stated it had caused EPS in the past. Klonopin was started with tapering dose and patient made aware it will be tapered off. BuSpar was started and increased to 10mg TID which patient responded well to. Patient eventually was able to shower, attend programming and interact with his peers. By Tuesday, patient requested to be discharged and stated his roommate was able to transport him home on Tuesday. He denied having any suicidal ideation for several days and felt more hopeful. He reported feeling much less anxious. He continued to have chorea movements but less severe. ??We have determined that patient has attained maximum benefit of inpatient psychiatric stay, now suitable for the discharge to the community/transition to lower level of care.?? Patient agrees??with the discharge??and at the time of discharge patient presented to have decision- making capacity in context of making arational choice for ongoing care??and disposition plan.?? The patient engaged in completing a safetyplan and denied any current thoughts of suicide. ??Suicide ([place] scale)??and violence risk assessment were performed, no acute, modifiable, or imminent risk factors were identified Electronically Signed By: Silke Hussein APRN Date and Time Signed: 04/17/22 11:08 EDT Physician Progress Note Silke Hussein APRN: PERFORM Event Display: Physician Progress Note Authored Date: [id number] Progress Note Subjective/24 Hour Events Chart reviewed and patient seen today. Patient attended programming today. He states he feels less anxious and would like to go home over the weekend. States his friend will pick him up this weekend but unable during the week. His genetic test for Yaw's disease is not back yet and may not be back prior to him leaving. He states he is ok with that and can get results when able. He denies SI/HI.He continues to have chorea but less intense. Review of Systems continues to have jerky movements in upper body, stiff gait, denies pain, eating well. he slept 9.25hours last night Objective Vitals & Measurements T:??36.4?C??(Temporal Artery)?? HR:??93??(Peripheral)?? BP:??116/63?? SpO2:??97%?? Mental Status Examination Appearance BH:??wrapped in blanket, hygiene adequate Psychomotor Behavior: psychomotor agitation, writhing and chorea movements. Speech:??nrml rate rhythm and volume Speech Articulation:??wnl BH Eye Contact:??wnl Behavior:??anxious,??cooperative,??engaged_ Affect Range:??broad Affect:??anxious, Mood:??ok Hallucinations:??none Delusions:??none Thought Content:??logical__ Thought Process:??clear, coherent, goal directed___ Judgment:??intact Insight:??intact Level of Consciousness:??alert Memory/concentration:??intact__ Suicidal Ideation:?denies Assessment/Plan jerky movements and chorea improved today. He is less isolative and able to attend groups. States hefeels less anxious and more hopeful. Records received from outpatient bellows charger assembler. Patient has had several past psychiatric diagnosis including: Bipolar 1 disorder, Bipolar ll disorder, schizoaffective disorder, SHERRIE, ADHD, OCD, and PTSD. He has tried multiple psychotropic medications and had trial of ECT. He is unsure if any have been beneficial. Diagnosis 1.??Bipolar disorder current episode depressed 2.??PTSD (post-traumatic stress disorder) 3.??OCD (obsessive compulsive disorder) Orders: busPIRone, 10 mg = 1 tab(s), Tab, Oral, TID, Start date 04/16/22 14:00:00 EDT, Routine clonazePAM, 1 mg = 1 tab(s), Tab, Oral, TID, Start date 04/16/22 14:00:00 EDT, Routine Medications Inpatient acetaminophen, 1000 mg= 2 tab(s), Oral, q6hr, PRN busPIRone, 10 mg= 1 tab(s), Oral, TID Fluarix Quadrivalent, 0.5 mL, IM, Before Discharge gabapentin, 400 mg= 1 cap(s), Oral, qHS KlonoPIN, 1 mg= 1 tab(s), Oral, TID lactobacillus acidophilus oral tablet, 1 tab(s), Oral, qAM melatonin, 6 mg= 2 tab(s), Oral, qHS Milk of Magnesia, 30 mL, Oral, Daily, PRN Mylanta, 30 mL, Oral, QID, PRN prazosin, 4 mg= 4 cap(s), Oral, qHS Home No active home medications Physician Re-Certification of Medical Necessity ?? I certify that inpatient psychiatric hospital admission is medically necessary for treatment which could reasonably be expected to improve the patient's condition: _y In need of ILOC due to:_recent SI, debilitating anxiety Is the patient involuntary? _n Did the patient receive a court order for involuntary medication? n_ Treatment Plan: ?? Treatment Plan Discussed and Reviewed with Patient:_y Receiving active treatment through medication, individual, group, and milieu therapy Discharge Planning would like discharge home tomorrow Electronically Signed By: Silke Hussein APRN Date and Time Signed: 04/16/22 14:35 EDTCvioletta Hussein APRN: PERFORM Event Display: Physician Progress Note Authored Date: Progress Note Subjective/24 Hour Events EMR reviewed and patient seen in room with PMHNP student Eran. Pt is laying down in bed on his sidefacing the window. He is writhing in bed, although less so than yesterday. He is reporting that his anxiety has been up and down. He also believes the medications may be helping him somewhat. He is currently denying SI. Results of the copper test were reviewed with the patient and are clinically insignificant. He is denying pain, although stated he did have some muscle tension in his back and shoulders yesterday which was relieved by tylenol. He states??he was able to leave his room to bring back his meal tray. he states he will try to get out of his room more today. ?? Review of Systems Slept: 8.25, endorses intermittent muscular discomfort, no CHAWLA, or vision changes. Objective Vitals & Measurements T:??36.5?C??(Temporal Artery)?? HR:??69??(Peripheral)?? BP:??114/80?? SpO2:??96%?? HT:??177.8??cm?? Mental Status Examination Appearance BH:??wrapped in blanket, hygiene adequate Psychomotor Behavior: psychomotor agitaion, writhing and chorea movement. Speech:??nrml rate rhythm and volume Speech Articulation:??wnl BH Eye Contact:??wnl Behavior:??anxious,??cooperative,??engaged_ Affect Range:??broad Affect:??anxious, Mood:??ok Hallucinations:??none Delusions:??none Thought Content:??logical__ Thought Process:??clear, coherent, goal directed___ Judgment:??intact Insight:??intact Level of Consciousness:??alert Memory/concentration:??intact__ Suicidal Ideation:?denies Results Lab Results [facility]: 71 (L) Assessment/Plan Patient reports improved anxiety on current medication regimen. Continue to supply tylenol for symptoms of pain. We are awaiting diagnostic genetic testing to determine best placement and next steps todevelop an effective plan of care. Diagnosis 1.??Bipolar disorder current episode depressed 2.??PTSD (post-traumatic stress disorder) 3.??OCD (obsessive compulsive disorder) Medications Inpatient acetaminophen, 1000 mg= 2 tab(s), Oral, q6hr, PRN busPIRone, 5 mg= 0.5 tab(s), Oral, TID Flu[employer]ix Quadrivalent, 0.5 mL, IM, Before Discharge gabapentin, 400 mg= 1 cap(s), Oral, qHS KlonoPIN, 1.5 mg= 3 tab(s), Oral, TID lactobacillus acidophilus oral tablet, 1 tab(s), Oral, qAM melatonin, 6 mg= 2 tab(s), Oral, qHS Milk of Magnesia, 30 mL, Oral, Daily, PRN Mylanta, 30 mL, Oral, QID, PRN prazosin, 4 mg= 4 cap(s), Oral, qHS Home No active home medications Physician Re-Certification of Medical Necessity ?? I certify that inpatient psychiatric hospital admission is medically necessary for treatment which could reasonably be expected to improve the patient's condition: _y In need of ILOC due to:_ recent SI, diagnostic evaluation. Is the patient involuntary? _n Treatment Plan: ?? Treatment Plan Discussed and Reviewed with Patient:_y Receiving active treatment through medication, individual, group, and milieu therapy Electronically Signed By: Silke Hussein APRN Date and Time Signed: 04/15/22 10:50 EDTCvioletta Hussein APRN: PERFORM Event Display: Physician Progress Note Authored Date: Progress Note Subjective/24 Hour Events chart reviewed and patient seen today. Patient remains isolative in bed most of day. He gets up to go to the bathroom. States he cannot tolerate standing for long periods of time due to anxiety. He is unsure if Klonopin has been helpful. Continues to have swaying movement in upper body. posture is tense/rigid. Has some difficulty walking. He is eating good. denies physical?? pain Review of Systems Patient slept 9.75 hours last night, eating good, denies pain, continues with chorea movements Objective Mental Status Examination Appearance Behavior: engagned in interview, dressed in shorts no shirt. laying in bed, eyes bulging Psychomotor Behavior:??restless, chorea in upper body/limbs, gait rigid, stiff Speech:??nrml rate rhythm and volume Speech Articulation:??wnl BH Eye Contact:??wnl Behavior:??anxious,??cooperative,??engaged_ Affect Range:??constricted Affect:??anxious Mood:??anxious Hallucinations:??none Delusions:??none Thought Content:??logical__ Thought Process:??clear, coherent, goal directed___ Judgment:??impaired Insight:??intact Level of Consciousness:??alert Memory/concentration:??intact__ Suicidal Ideation:?denies Assessment/Plan awaiting blood work results. Patient remains unchanged, c/o severe anxiety. denies SI Diagnosis 1.??Bipolar disorder current episode depressed 2.??PTSD (post-traumatic stress disorder) 3.??OCD (obsessive compulsive disorder) Orders: Copper Level-Benedict Miscellaneous Benedict Test Medications Inpatient acetaminophen, 1000 mg= 2 tab(s), Oral, q6hr, PRN busPIRone, 5 mg= 0.5 tab(s), Oral, TID Fluarix Quadrivalent, 0.5 mL, IM, Before Discharge gabapentin, 400 mg= 1 cap(s), Oral, qHS KlonoPIN, 1.5 mg= 3 tab(s), Oral, TID lactobacillus acidophilus oral tablet, 1 tab(s), Oral, qAM melatonin, 6 mg= 2 tab(s), Oral, qHS Milk of Magnesia, 30 mL, Oral, Daily, PRN Mylanta, 30 mL, Oral, QID, PRN prazosin, 4 mg= 4 cap(s), Oral, qHS Home No active home medications Physician Re-Certification of Medical Necessity I certify that inpatient psychiatric hospital admission is medically necessary for treatment which could reasonably be expected to improve the patient's condition: _y In need of ILOC due to:_debilitating anxiety. recent SI Is the patient involuntary? _n Did the patient receive a court order for involuntary medication? _n Treatment Plan: ?? Treatment Plan Discussed and Reviewed with Patient:_ Receiving active treatment through medication, individual, group, and milieu therapy Discharge Planning TBD Coordination of Care spoke with outpatient provider, LINDASY Hyaes for history. Quiana states she has only been seeing patient for last few weeks and feels he would benefit from higher level of care such as [employer]. She will send past records. She states she agrees patient appears to have involuntary movements in upper body and is very stiff/rigid with gait. Electronically Signed By: Silke Hussein APRN Date and Time Signed: 04/14/22 13:26 TATIANATCvioletta Hussein APRN: PERFORM Event Display: Physician Progress Note Authored Date: Progress Note Subjective/24 Hour Events Chart reviewed and patient seen with Eran pascal and [place] GOETZ. Patient remained in bed all day today. He c/o high levels of anxiety and difficulty being out of bed. He has jerky movements noted in upper limbs and writhing movements as observed yesterday. He states his father many years ago from a stroke and that his mother left when he was [age] and he has no contact with her, nor knows much about her. CK was WNL.??He did have an MRI yesterday??evening with results showing no acute abnormality see below. He reports no change in his level of anxiety. After 1x dose of xanax last night he did not have appreciable improvement in anxiety symptoms either.?? Latuda will be discontinued incase that could be worsening his movements. The patient said that he gets restless legs with Latuda which he had forgotten. He is eating well, but could use encouragement for fluid intake. Patient doeshave intermittent SI, and is CFS on the unit. ? (04/12/2022 20:41 EDT MRI Brain w/o Contrast) ?? CSF spaces: The ventricles and basal cisterns are normal and?? symmetric. There is no hydrocephalus. There is no extra-axial fluid?? collection. ?? Tejada matter: Cortical and deep tejada matter signal is normal. There is?? no infarct, mass or hemorrhage. Diffusion weighted sequence is?? negative for evidence of recent infarction. ?? White matter: Subcortical and deep white matter is normal in signal.?? No evidence of microvascular ischemic disease. No demyelinating?? changes are evident. ?? The major intracranial vascular structures are patent. ?? The visible orbits and paranasal sinuses are unremarkable. No?? skeletal abnormalities are evident. ?? IMPRESSION: ??No significant abnormality. ?? Electronically Signed by: Stephen Mcmanus MD 04/13/2022 9:03 AM [1] Review of Systems Chorea noted in upper body/limbs, gait is stiff and rigid, toes curled when standing. he slept 6.5 hours last night, eating well Objective Vitals & Measurements HR:??79??(Peripheral)?? RR:??20?? BP:??132/82?? SpO2:??98%?? Mental Status Examination Appearance BH:??dressed appropriately for age and seasonhygiene intact__ Psychomotor Behavior:??Chorea, writhing in bed, constant movement of hands and feet in a rigid fashion Speech:??Normal speed, articulation is coherent, somewhat shakey at times. Eye Contact:??wnl Behavior:??anxious,??cooperative,??engaged Affect Range:??broad, congruent to mood Affect:??anxious Mood:??anxious Hallucinations:??none Delusions:??none Thought Content:??logical__ Thought Process:??clear, coherent, goal directed___ Judgment:??intact Insight:??intact Level of Consciousness:??alert Memory/concentration:??intact Suicidal Ideation:??intermittent SI CFS Results Lab Results Cardiac Enzymes Total CK: 91 IU/L Assessment/Plan Continue to??look into??abnormal movements.??Will add clonazepam??1.5mg TID, and buspar 5mg TID to target anxiety and perhaps provide some relief from the involuntary movements. Copper level, and HTT gene labs ordered to rule out Wilsons disease and Huntingtons disease respectively. Encourage increased fluid intake. Dr. Cazares consulted on the complexity of this case and agrees with the treatment plan. Diagnosis 1.??Bipolar disorder current episode depressed 2.??PTSD (post-traumatic stress disorder) 3.??OCD (obsessive compulsive disorder) Orders: busPIRone, 5 mg = 0.5 tab(s), Tab, Oral, TID, Start date 04/13/22 14:00:00 EDT, Routine clonazePAM, 1.5 mg = 3 tab(s), Tab, Oral, TID, Start date 04/13/22 14:00:00 EDT, Routine Copper Level-Benedict Miscellaneous Benedict Test Medications Inpatient acetaminophen, 1000 mg= 2 tab(s), Oral, q6hr, PRN busPIRone, 5 mg= 0.5 tab(s), Oral, TID Fluarix Quadrivalent, 0.5 mL, IM, Before Discharge gabapentin, 400 mg= 1 cap(s), Oral, qHS KlonoPIN, 1.5 mg= 3 tab(s), Oral, TID lactobacillus acidophilus oral tablet, 1 tab(s), Oral, qAM melatonin, 6 mg= 2 tab(s), Oral, qHS Milk of Magnesia, 30 mL, Oral, Daily, PRN Mylanta, 30 mL, Oral, QID, PRN prazosin, 4 mg= 4 cap(s), Oral, qHS Home No active home medications Physician Re-Certification of Medical Necessity ?? I certify that inpatient psychiatric hospital admission is medically necessary for treatment which could reasonably be expected to improve the patient's condition: _y In need of ILOC due to:_suicidal ideation Is the patient involuntary? _n ?? Treatment Plan: ?? Treatment Plan Discussed and Reviewed with Patient:_y Receiving active treatment through medication, individual, group, and milieu therapy [1]??MRI Brain w/o Contrast; Stephen Mcmanus MD 04/12/2022 20:41 EDT [2]??Physician Progress Note - Psychiatric; Silke Hussein APRN 04/12/2022 13:30 EDT Electronically Signed By: Silke Hussein APRN Date and Time Signed: 04/13/22 15:10 EDTCvioletta Hussein APRN: PERFORM Event Display: Physician Progress Note Authored Date: [id number] Progress Note Subjective/24 Hour Events Chart reviewed and patient seen several times today. Patient remained in bed all day today. He c/o high levels of anxiety and difficulty being out of bed. He has jerky movements noted in upper limbs and writhing movements. He states he started having anxiety around age 30 that worsened significantly in the last 3 months. He states he has had 15 psychiatric hospitalizations in [place] and 3 in [place] for anxiety. He states it is difficult to function. He has stiff rigid gait when asked to walk towards the door and his toes are curled when he stands. He denies suicidal ideation, denies psychotic symptoms. States he has difficulty sleeping at night. His appetite is good. Review of Systems Chorea noted in upper body/limbs, gait is stiff and rigid, toes curled when standing. he slept 6.5 hours last night, eating well Objective Vitals & Measurements T:??36.9?C??(Temporal Artery)?? HR:??89??(Peripheral)?? BP:??139/101?? SpO2:??97%?? Mental Status Examination Appearance Behavior: engagned in interview, dressed in shorts no shirt. laying in bed, eyes bulging Psychomotor Behavior:??restless, chorea in upper body/limbs, gait rigid, stiff Speech:??nrml rate rhythm and volume Speech Articulation:??wnl BH Eye Contact:??wnl Behavior:??anxious,??cooperative,??engaged_ Affect Range:??constricted Affect:??anxious Mood:??anxious Hallucinations:??none Delusions:??none Thought Content:??logical__ Thought Process:??clear, coherent, goal directed___ Judgment:??impaired Insight:??intact Level of Consciousness:??alert Memory/concentration:??intact__ Suicidal Ideation:?denies Assessment/Plan patient noted to have chorea in upper body, limbs with jerky movements and writhing movements, gait is rigid and stiff with toes curled inward. Patient states his uncle has Galo syndrome, denies yaw's disease in family. TSH WNL, CK ordered to rule out NMS. will stop medications that can cause anticholinergic effects and medications that can contribute to NMS. MRI w/wo contrast ordered. Patient denies pain or discomfort other than feeling anxious. He denies SI/HI. will continue to monitor. Diagnosis 1.??Bipolar disorder current episode depressed 2.??PTSD (post-traumatic stress disorder) 3.??OCD (obsessive compulsive disorder) Orders: Creatine Kinase MRI Brain w/ + w/o Contrast - [id number] Medications Inpatient acetaminophen, 1000 mg= 2 tab(s), Oral, q6hr, PRN Fluarix Quadrivalent, 0.5 mL, IM, Before Discharge gabapentin, 400 mg= 1 cap(s), Oral, qHS lactobacillus acidophilus oral tablet, 1 tab(s), Oral, qAM Latuda, 20 mg= 0.5 tab(s), Oral, Daily with Supper LORazepam, 0.5 mg= 1 tab(s), Oral, BID, PRN melatonin, 6 mg= 2 tab(s), Oral, qHS Milk of Magnesia, 30 mL, Oral, Daily, PRN Mylanta, 30 mL, Oral, QID, PRN prazosin, 4 mg= 4 cap(s), Oral, qHS Home No active home medications Physician Re-Certification of Medical Necessity ?? I certify that inpatient psychiatric hospital admission is medically necessary for treatment which could reasonably be expected to improve the patient's condition: _y In need of ILOC due to:_debilitating anxiety. recent SI Is the patient involuntary? _n Did the patient receive a court order for involuntary medication? _n Treatment Plan: ?? Treatment Plan Discussed and Reviewed with Patient:_y Receiving active treatment through medication, individual, group, and milieu therapy Discharge Planning TBD Electronically Signed By: Silke Hussein APRN Date and Time Signed: 04/12/22 13:43 ION AVELAR NP: PERFORM Event Display: Physician Progress Note Authored Date: [id number] Progress Note Subjective/24 Hour Events This note was drafted using voice recognition technology. Sometimes, attempts at proofreading miss errors. Although every effort is taken to accurately recreate clinically pertinent information, grammatical errors and misspellings may still occur. Please feel free to contact the psychiatry department with any inquiries. ?? Patient seen and evaluated. ??EMR reviewed. ?? Met with August in his room.?? He was awake and laying in bed.?? He reported feeling depressed today,with intermittent suicidal thoughts. ??Denied plan to act on these thoughts on unit and agreed to reach out to staff if that should change.?? He states that his appetite has been adequate, sleep has been impaired, stating I usually have a sleep aid at night. ??Of note, he did utilize a 0.5 as needed Ativan last night.?? Anxiety remains elevated. ??He did utilize 1 dose of Vistaril in the afternoon??and attended 1 group last evening.?? He agreed??to trial 6 mg melatonin tonight??and prefers that it be scheduled so that he does not asked to??ask nursing for it. ??He tolerated??initial dose of 20 mg trazodone last evening??with dinner. Review of Systems Slept??11.5 hours of which patient states was not??restful??or consistent??secondary to his anxiety.?? He is eating meals. Objective Vitals & Measurements T:??36.2?C??(Temporal Artery)?? HR:??70??(Peripheral)?? BP:??103/68?? SpO2:??98%?? Mental Status Examination Appearance: Patient is alert, sitting up in bed. ?? Mood:??Depressed; affect??fairly limited ?? Thought process:??Organized ?? Thought content:??Intermittent suicidal thoughts, denies plan ?? Speech within normal limits ?? Judgment/insight,??fair/fair Results Lab Results Lipid Panel Chol: 240 mg/dL HDL: 44 mg/dL LDL: 171 mg/dL Tri mg/dL Chemistry BUN:??22 mg/dL??High Calcium Level: 9 mg/dL Chloride: 106 mmol/L Creatinine:??1.4 mg/dL??High Glucose Level: 82 mg/dL Glucose Level: 82 mg/dL Potassium Level: 4.1 mmol/L Sodium Level: 139 mmol/L TSH: 1.32 mcIU/mL LFT Albumin Level: 3.7 gm/dL Alk Phos: 52 unit/L ALT: 33 IU/L AST:??14 IU/L??Low Bili Total: 0.51 mg/dL Total Protein: 7.3 gm/dL Hematology Hct: 48.1 % Hgb:??16.4 gm/dL??High Platelet: 221 x10(3)/mcL RBC: 5.28 x10(6)/mcL WBC: 5.8 x10(3)/mcL Assessment/Plan Patient remains safe on unit with intermittent thoughts of suicide. ??Continues to endorse??depressed mood??although he could not provide a specific number on scale of 1-10 and he states??it is prettyhigh.?? Ongoing anxiety of which she has been utilizing as needed Vistaril and as needed Ativan.?? We initiated 20 mg Latuda last evening for mood stabilization??as patient reports good benefit from this particular med in the past.?? We will also trial 6 mg melatonin tonight to aid with sleep.?? Patient was encouraged to??engage in groups on unit??and practice alternative coping mechanisms for anxiety management.?? Discharge planning remains ongoing. ??In patient's current condition, inpatient carecontinues to be warranted for safety and stabilization.?? Treatment team will follow up tomorrow. ??Continue to monitor. ?? Diagnosis 1.??Bipolar disorder current episode depressed 2.??PTSD (post-traumatic stress disorder) 3.??OCD (obsessive compulsive disorder) Orders: melatonin, 6 mg = 2 tab(s), Tab, Oral, qHS PRN insomnia, Start date 04/11/22 15:59:00 EDT, Routine Medications Inpatient acetaminophen, 1000 mg= 2 tab(s), Oral, q6hr, PRN cetirizine, 10 mg= 1 tab(s), Oral, Daily Flonase, 2 spray(s), Nasal, BID Fluarix Quadrivalent, 0.5 mL, IM, Before Discharge fluvoxaMINE, 50 mg= 1 tab(s), Oral, qHS gabapentin, 400 mg= 1 cap(s), Oral, qHS lactobacillus acidophilus oral tablet, 1 tab(s), Oral, qAM Latuda, 20 mg= 0.5 tab(s), Oral, Daily with Supper LORazepam, 0.5 mg= 1 tab(s), Oral, BID, PRN melatonin, 6 mg= 2 tab(s), Oral, qHS, PRN Milk of Magnesia, 30 mL, Oral, Daily, PRN Mylanta, 30 mL, Oral, QID, PRN prazosin, 4 mg= 4 cap(s), Oral, qHS Protonix, 40 mg= 1 tab(s), Oral, Daily Vistaril, 50 mg= 1 cap(s), Oral, TID, PRN Home No active home medications Physician Re-Certification of Medical Necessity ?? I certify that inpatient psychiatric hospital admission is medically necessary for treatment which could reasonably be expected to improve the patient's condition: _Yes In need of ILOC due to:_Suicidal thoughts Is the patient involuntary? _No Treatment Plan: ?? Treatment Plan Discussed and Reviewed with Patient:_yes Receiving active treatment through medication, individual, group, and milieu therapy Electronically Signed By: KEITH AVELAR NP Date and Time Signed: 04/11/22 15:37 EDTMEREDITH GATO AVELAR: PERFORM Event Display: Physician Progress Note Authored Date: [id number] Labs reviewed. ??No acute interventions at this time. Electronically Signed By: KEITH AVELAR NP Date and Time Signed: 04/11/22 15:39 EDT History and physical note KEITH AVELAR NP: PERFORM Event Display: History and Physical Authored Date: [id number] History & Physical Reason for Admission Suicidal thoughts. History of Present Illness This note was drafted using voice recognition technology. Sometimes, attempts at proofreading miss errors. Although every effort is taken to accurately recreate clinically pertinent information, grammatical errors and misspellings may still occur. Please feel free to contact the psychiatry departmentwith any inquiries. ?? The following information??was obtained from patient, EMR, and collateral reports. ??Information obtained from patient was considered reliable. ?? This is a 41-year-old male with reported history of bipolar??disorder, PTSD??and anxiety.?? He reports??16 prior psychiatric admissions for depression and suicidal thoughts??with most recent being in December??2021 at the [facility].?? He recently moved from [place] to [place]??officiallyin January of this year.?Is currently residing??in [facility] and lives with a friend.?? He has established??outpatient providers including a prescriber and counselor??and underwent recent medication adjustments. ?? Patient reports increasing??depressed mood??with suicidal thoughts, hopelessness/helplessness,??decreased energy,??hypersomnia,??reduced appetite, and anhedonia??for the past 3 weeks.?? Patient reports significant trauma history growing up??with??several losses of close??relationships in his life.?Over the course of his life,??patient states that??his dog had ??(put to sleep)??though patient felt that??it was premature.?? Patient's uncle was previously caring for the dog in [place]??though due to??this person's increased medical needs he had to go to a penitentiary and could no longer care for the dog, nor could patient.?? He states that??his dad had been taken off life support due to a stroke and . ??His grandfather had dementia and .?He does not??have a close relationship with??his mother and??is unaware of her current??status??at this time. ??He and his ex- had suffered through 3 miscarriages.?? He states that he was diagnosed??with bipolar disorder??when he was 28 years old??as well as OCD.?? He reports having??what he described as a manic episode approximately 2 years ago??with symptoms being decreased need for sleep for??roughly 2 to3 days, increased energy,??excessive spending (up to $1000 on clothes of which he ended up returning) as well as increased sexual desire.?? Patient states that he??was not hospitalized for this episode??and did not experience symptoms of psychosis. ??Patient reports that this is not his typical baseline.?? He says he suffers from obsessive thoughts??related to underlying anxiety and trauma.?? Triggers for his recent SI he states were an accumulation of??stressors including??car trouble, unable to make it to his outpatient appointments,??difficulty with registering his car??in [place], while simultaneously suffering from??traumatic flashbacks and nightmares??and an overwhelming sense of hopelessness??with decreased desire to live.?? Patient denies history of suicidal??attempts??though states that this is the closest he has ever been. ??Patient did not attempt to act on any plans??this time around.?? Historical SI had been diverted secondary to??patient's??judaism upbringing??stating I am a Sabianism.?? Patient denies active substance use.?? Denies symptoms of psychosis including audio and visual hallucinations.?? He reports obsessive thoughts??more so than ritualistic behaviors secondary to OCD.?? He has undergone recent medication adjustments with his outpatient team??and has an extensive medication list.?? He is accepting of inpatient care for safety and stabilization. Past Psychiatric History At least 16 prior inpatient admissions for what patient describes as depression and suicidal thoughts. ??Denies history of suicide attempts.?? Extensive medication regimen/trials. ?? Prescriber is crystal??labuff??at [facility], and he recently??engaged with a counselor in [place] by the name of Mikey Substance Abuse History Patient denies. Social History Patient is ??though maintains a good relationship with his ex and ex [id number]. ??Patient moved from [place] to [place] in January??stating that??there was too much trauma??in his home state??that he was trying to escape from.?? Multiple losses of relationships??in his life including of a close uncle, his father,??his dog,??no relationship with his mother.?? Denies legal history. ??Receives SSDI for income. Family History Patient reports that his uncle had??bipolar disorder. Physical Exam Vitals & Measurements T:??36.8?C??(Temporal Artery)?? TMIN:??36.8?C??(Temporal Artery)?? TMAX:??37.0?C??(TemporalArtery)?? HR:??80??(Peripheral)?? RR:??16?? BP:??102/64?? SpO2:??99%?? WT:??77.1??kg?? Patient was medically cleared from the [facility]??prior to transfer to[facility] Mental Status Exam General appearance: Laying in bed,??heart,??appears tense, adequate eye contact Mood and Affect:??Anxious,??fairly restricted Gait:??Laying in bed?? Muscle strength and tone:??Mildly restless legs,??no evidence of tremor??or weakness Speech:??Within normal limits Thought content:??Denies SI today though feels hopeless and helpless; denies HI/AVH, no evidence ofdelusion or paranoia Thought process:??Organized Orientation:??X3 Language:??Able to verbally articulate Attention span and concentration:??Adequate for interview Fundamentals of knowledge:??Average Associations:??Intact Recent and Remote memory:??Intact Judgement and Insight:??Fair/fair Assessment/Plan 41-year-old male with history of??self-reported??bipolar, PTSD,??OCD, anxiety.?? Patient??is an[place] [facility]??of whom reported??suicidal thoughts with increasing depressed mood, decreased energy,??increased sleep, decreased appetite, feelings of hopelessness and helplessness, as well as anhedonia??for the past 3 weeks?? He reports history of bipolarspectrum with??a self-described history of??possible hypomanic episode??of which did not necessitateinpatient care or??psychosis.?? He describes obsessive thoughts and previous diagnosis of OCD.?? Anxiety remains elevated and he suffers from??frequent flashbacks and nightmares secondary to trauma??ofwhich correlate to his??PTSD. ??Patient has had numerous inpatient admissions for depression and suicidal thoughts. ??It appears that patient is suffering from a major depressive episode, recurrent,??and??is most likely on the bipolar spectrum??related to type II of which presents with lower risk for m anic switch with antidepressant therapy compared to type 1. ?? Patient's current medication list is extensive??with upwards of??6 psychiatric medications of whichinclude gabapentin for anxiety, fluvoxamine for depression/OCD,??Depakote for??mood stabilization, Seroquel for mood stabilization, prazosin for??PTSD, Ativan??for anxiety.?? Patient also receives addition of 0.5 mg as needed??Ativan for breakthrough anxiety. ??Extensive discussion with patient regarding??streamlining of medications and consolidation to reduce polypharmacy regimen??and mitigate potential adverse reactions.?? Patient is receptive to medication modification.?? He reports history of good effect with Latuda??of which he did not continue secondary to lack of insurance/finances.?? He wasunclear of his prior dose and the exact timeline.?? We had also discussed??the potential use of Abilify??for mood stabilization??as well as OCD-like features.?? We settled on??resumption of Latuda??starting at 20 mg??of which patient was educated to take with meals to ensure adequate??calorie intake for absorption.?? Latuda will replace Depakote??as well as Seroquel.?? We will continue fluvoxamine for now??at 50 mg??of which was recently increased from 25 mg by his outpatient prescriber??within the past week.?? Education provided on??Ativan, including risk for dependency??and possible cognitive impairment with long-term use.?? Patient was agreeable to discontinue the 1 mg scheduled daily Ativan??and is aware that he will have a 0.5 twice daily as needed??dose available for breakthrough anxiety quyen??adjusts to??medication adjustments on unit.?? We will resume patient's prazosin 4 mg??as well ashis gabapentin??400 mg at night which was recently reduced from??3 times daily dosing by his outpatient prescriber.?? The reason for this being that??it can still be an effective medication for anxietymanagement as well as for sleep,??of which patient reports difficulty secondary to his anxiety.?? Fur ther adjustments??to medication regimen may be indicated moving forward??in regard to symptom management. ?? Baseline??labs??will be ordered for tonight??and reviewed tomorrow.?? In patient's current condition, inpatient care is warranted for safety and stabilization. ?? The patient was admitted on a voluntary basis and placed on 15 minute checks for safety and stabilization. Pt will be evaluated by nursing, social work and occupational therapy.??Pt will be enrolled in individual, group and milieu therapies. We will contact collaterals and outpatient providers forcontinuity of care and will work with patient on discharge planning. Diagnosis 1.??Bipolar disorder current episode depressed ?- hx of hypomanic episode 2.??PTSD (post-traumatic stress disorder) ?- per hx 3.??OCD (obsessive compulsive disorder) ? - per hx Orders: gabapentin, 400 mg = 1 cap(s), Cap, Oral, qHS, Start date 04/10/22 21:00:00 EDT, Routine hydrOXYzine, 50 mg = 1 cap(s), Cap, Oral, TID PRN anxiety, Start date 04/10/22 15:38:00 EDT, Routine LORazepam, 0.5 mg = 1 tab(s), Tab, Oral, BID PRN agitation/anxiety, Start date 04/10/22 15:08:00 EDT, Routine lurasidone, 20 mg = 0.5 tab(s), Tab, Oral, Daily with Supper, Start date 04/10/22 17:00:00 EDT, Routine prazosin, 4 mg = 4 cap(s), Cap, Oral, qHS, Start date 04/10/22 21:00:00 EDT, Routine Glucose Level Lipid Panel Time Spent with Patient 45min. Coordination of Care 5min. Problem List/Past Medical History Ongoing No qualifying data Historical No qualifying data Medications Inpatient acetaminophen, 1000 mg= 2 tab(s), Oral, q6hr, PRN cetirizine, 10 mg= 1 tab(s), Oral, Daily Flonase, 2 spray(s), Nasal, BID Fluarix Quadrivalent, 0.5 mL, IM, Before Discharge fluvoxaMINE, 50 mg= 1 tab(s), Oral, qHS gabapentin, 400 mg= 1 cap(s), Oral, qHS lactobacillus acidophilus oral tablet, 1 tab(s), Oral, qAM Latuda, 20 mg= 0.5 tab(s), Oral, Daily with Supper LORazepam, 0.5 mg= 1 tab(s), Oral, BID, PRN Milk of Magnesia, 30 mL, Oral, Daily, PRN Mylanta, 30 mL, Oral, QID, PRN prazosin, 4 mg= 4 cap(s), Oral, qHS Protonix, 40 mg= 1 tab(s), Oral, Daily Vistaril, 50 mg= 1 cap(s), Oral, TID, PRN Home No active home medications Allergies amoxicillin??(Anaphylactic reaction) penicillin??(Anaphylactic reaction) sulfa drugs Electronically Signed By: KEITH AVELAR NP Date and Time Signed: 04/10/22 19:18 EDTMHOMAR AVELAR NP: PERFORM Event Display: History and Physical Authored Date: EKG performed at [facility] was wnl. Electronically Signed By: KEITH AVELAR NP Date and Time Signed: 04/10/22 19:20 EDT MR Brain WO contrast Event Display: MRI Brain w/o Contrast Authored Date: PROCEDURE: MR Brain WO Contrast [id number] CLINICAL INDICATION: chorea movements COMPARISON: None. TECHNIQUE: Multiplanar multisequence images of the brain were performed without contrast. FINDINGS: CSF spaces: The ventricles and basal cisterns are normal and symmetric. There is no hydrocephalus. There is no extra-axial fluid collection. [place] matter: Cortical and deep [place] matter signal is normal. There is no infarct, mass or hemorrhage. Diffusion weighted sequence is negative for evidence of recent infarction. White matter: Subcortical and deep white matter is normal in signal. No evidence of microvascular ischemic disease. No demyelinating changes are evident. The major intracranial vascular structures are patent. The visible orbits and paranasal sinuses are unremarkable. No skeletal abnormalities are evident. IMPRESSION: No significant abnormality. Electronically Signed by: Stephen Mcmanus MD 04/13/2022 9:03 AM Care Team Care Team PersonnelName: Member LISBET Role: Primary Care Physician Address: Address: [address] [place] [address] [place] [phone] Care Team Related PersonsName: EMMY BOUCHER
[2022-07-19 14:55] LABS: Bilirubin Negative (Negative); Blood Trace-intact (Negative); Clarity Clear (Clear); Glucose Negative (Negative); Ketones Negative (Negative); Leukocyte Esterase Negative (Negative); Nitrite Negative (Negative); Urobilinogen 0.2 EU/dL (Up TO 0.2)
[2022-07-19 15:03] LABS: Bacteria Rare HPF (Negative); C & S Indicated? No; Casts Negative LPF (Negative); Crystals Negative HPF (Negative); Epithelial Cells Rare HPF (Negative); Mucus Negative (Negative); RBC 0-2 HPF (0-2); WBC 0-2 HPF (0-5)
== END 2022-07-19 14:45 | disposition home or self-care (01) ==
LOC: NCHCN 14:44
PROVIDERS: PCP Nurse Practitioner Family; Visit Provider Family Medicine
DX: R32 Unspecified urinary incontinence (principal)
CPT/HCPCS: 81003; 81015